=== PATIENT | female | born 1945 | race Caucasian/White ===

== ENCOUNTER 2017-04-03 12:50 | Inpatient (IN) | payer MEDICARE, OTHER ==
[~2017-04-03] VITALS: Ht 160 cm; Wt 171.8 kg
[~2017-04-03 12:50] MED LIST: ALLO300T11 PO; AMIT150T PO; ASPI-611 PO; CHOL2000 PO; CRAN1TAB3 PO; CYAN-19 PO; DET2T PO; DIO160T PO; GABA300T25 PO; IRON150C5 PO; LANTUS SQ; LEVO500T89 PO; LORA10TA7 PO; LYR75C PO; MELO-102 PO; METO25TA6 PO; OMEP-50; POTA10TA36 PO; SERT100T PO; TRAM50TA2 PO; [UNRECOGNIZED DRUG - CODE] PO
[2017-04-03] MEDS ORDERED: normal saline 1000ML IV soln IV ONE (12:55)
[2017-04-03 13:45] LABS: CLARITY,URINE SLIGHTLY CLOUDY (Clear); COLOR,URINE YELLOW (Yellow); GLUCOSE, URINE NEGATIVE (Neg); KETONES,URINE NEGATIVE (Neg); LEUKOCYTE ESTERASE ,URINE SMALL (Neg); NITRITES, URINE POSITIVE (Neg); OCCULT BLOOD,URINE SMALL (Neg); PROTEIN,URINE TRACE mg/dl (Neg); UROBILINOGEN,URINE 0.2 E.U/dL (0.2-1.0)
[2017-04-03 13:46] LABS: UA COLLECTION TYPE FOLEY CATH
[2017-04-03 13:52] LABS: ALANINE AMINOTRANSFERASE 20 U/L (12-78); ALBUMIN 3.2 G/DL (3.4-5.0); ALBUMIN/GLOBULIN RATIO 0.8 (1.1-1.5); ALKALINE PHOSPHATASE 98 IU/L (46-116); ANION GAP 10 (8-16); ASPARTATE AMINO TRANSFERASE 28 U/L (10-37); BILIRUBIN,TOTAL 0.5 MG/DL (0.1-1.0); BLOOD UREA NITROGEN 25 MG/DL (7-18); BUN/CREATININE RATIO 18.7 (6.6-38.0); CALCIUM 9.4 MG/DL (8.5-10.1); CHLORIDE 104 MMOL/L (99-107); CREATININE 1.34 MG/DL (0.40-0.90); GLUCOSE 182 MG/DL (70-104); SODIUM 143 MMOL/L (135-145); TOTAL CARBON DIOXIDE 29.5 MMOL/L (24-32); TOTAL PROTEIN 7.3 G/DL (6.4-8.2); eGFR 39 ML/MIN
[2017-04-03 13:55] LABS: BACTERIA,URINE 4+ /HPF (Neg); SQUAMOUS EPITHELIAL CELL,UR MANY /LPF (FEW); WBC CLUMPS,URINE FEW /HPF (NEGATIVE); WBC,URINE 50-100 /HPF (0-4)
[2017-04-03 13:56] LABS: AMORPHOUS URATES 2+
[2017-04-03] MEDS ORDERED: CefTRIAXone 2gm/NS 100ml IVPB 100 ML IV ONE (14:00)
[2017-04-03] MEDS ORDERED: levoFLOXACIN-Levaquin 500mg/D5 100 ML IV ONE (14:00)
[2017-04-03 14:22] LABS: CREATINE KINASE 94 U/L (26-192)
[2017-04-03] MEDS ORDERED: furosemide 10 MG/1 ML 10ml inj IV ONE (14:35)
[2017-04-03] MEDS ORDERED: DET2LAC PO (14:35)
[2017-04-03 14:36] LABS: BASOPHILS % (AUTO) 0.2 % (0-1); EOSINOPHILS # (AUTO) 0.3 X10'3 (0-0.9); EOSINOPHILS % (AUTO) 1.5 % (0-6); HEMATOCRIT 31.2 % (35.0-45.0); HEMOGLOBIN 10.1 g/dl (12.0-16.0); LYMPHOCYTES # (AUTO) 1.9 X10'3 (1.1-4.8); LYMPHOCYTES % (AUTO) 10.5 % (21-51); MEAN CORPUSCULAR HGB CONC 32.2 % (33.0-36.5); MEAN CORPUSCULAR VOLUME 80.6 FL (78-98); MEAN PLATELET VOLUME 7.5 FL (7.4-10.4); MONOCYTES # (AUTO) 1.1 X10'3 (0-0.9); MONOCYTES % (AUTO) 5.8 % (2-12); PLATELET COUNT 177 X10'3 (140-440); RED BLOOD COUNT 3.87 X10'6 (4.20-5.60); RED CELL DISTRIBUTION WIDTH 20.7 % (11.5-14.5); WHITE BLOOD COUNT 18.3 X10'3 (4.5-11.0)
[2017-04-03] MEDS ORDERED: ondansetron/PF 4mg/2ml inj IV PRN (14:55)
[2017-04-03] MEDS ORDERED: metoclopramide 5 mg/ml inj IV PRN (14:55)
[2017-04-03] MEDS ORDERED: magnesium hydroxide 30ml (MOM) UD suspension PO PRN (14:55)
[2017-04-03] MEDS ORDERED: mag hydrox/Alum hydrox/simeth 30ml oral suspension PO PRN (14:55)
[2017-04-03] MEDS ORDERED: bisacodyl 10mg suppository rectal RC PRN (14:55)
[2017-04-03] MEDS ORDERED: HYDROmorphone 1 mg/ml syringe IV PRN ×2 (14:55)
[2017-04-03] MEDS ORDERED: diphenhydrAMINE 50 mg/ml inj IV PRN (14:55)
[2017-04-03] MEDS ORDERED: diphenhydrAMINE 25mg capsule PO PRN (14:55)
[2017-04-03] MEDS: furosemide 10 MG/1 ML 10ml inj IV SCH (15:13)
[2017-04-03 15:24] LABS: MAGNESIUM 1.8 MG/DL (1.5-2.4)
[2017-04-03] MEDS ORDERED: dextrose ORAL solution 15 GM/59 ML bottle PO PRN ×2 (15:40)
[2017-04-03] MEDS ORDERED: dextrose 50%-water 50ml dispensing syringe IV PRN ×2 (15:40)
[2017-04-03] MEDS ORDERED: MESSAGE TO PHARMACY PO ONE (15:40)
[2017-04-03] MEDS ORDERED: glucagon, human recombinant 1mg kit SUBCUT PRN (15:40)
[2017-04-03] MEDS ORDERED: tetanus & diphtheria toxoid (Td) vaccine 0.5ml IMVAC ONE (16:45)
[2017-04-03 18:30] VITALS: BP 120/52
[2017-04-03] MEDS ORDERED: ibuprofen 200mg tablet PO ONE (20:00)
[2017-04-03] MEDS ORDERED: docusate sod 100mg capsule PO SCH (20:00)
[2017-04-03] MEDS: gabapentin 300mg capsule PO SCH (20:46)
[2017-04-03] MEDS: sertraline 50mg tablet PO SCH (20:47)
[2017-04-03] MEDS: amitryptiline 50mg tablet PO SCH (20:47)
[2017-04-03] MEDS: enoxaparin 30mg/0.3ml syringe SQ SCH (20:48)
[2017-04-03] MEDS: methylPREDNISolone sod succ 125mg/2ml vial IV SCH (20:48)
[2017-04-03] MEDS ORDERED: temazepam 15mg capsule PO PRN (21:00)
[2017-04-03] MEDS ORDERED: GABAPENTIN 1800 MG PO SCH (21:00)
[2017-04-03] MEDS: traMADol 50MG tablet PO SCH (21:30)
[2017-04-03 22:00] VITALS: BP 129/62
[2017-04-04 06:00] VITALS: BP 120/56
[2017-04-04 06:01] LABS: BASOPHILS % (AUTO) 0.1 % (0-1); EOSINOPHILS # (AUTO) 0.2 X10'3 (0-0.9); EOSINOPHILS % (AUTO) 1.8 % (0-6); HEMATOCRIT 29.5 % (35.0-45.0); HEMOGLOBIN 9.7 g/dl (12.0-16.0); LYMPHOCYTES % (AUTO) 12.1 % (21-51); MEAN CORPUSCULAR HEMOGLOBIN 26.2 PG (27.0-31.0); MEAN CORPUSCULAR HGB CONC 32.9 % (33.0-36.5); MEAN CORPUSCULAR VOLUME 79.5 FL (78-98); MEAN PLATELET VOLUME 7.9 FL (7.4-10.4); MONOCYTES # (AUTO) 0.1 X10'3 (0-0.9); MONOCYTES % (AUTO) 1.5 % (2-12); NEUTROPHILS # (AUTO) 7.2 X10'3 (1.8-7.7); NEUTROPHILS % (AUTO) 84.5 % (42-75); PLATELET COUNT 145 X10'3 (140-440); RED CELL DISTRIBUTION WIDTH 20.2 % (11.5-14.5); WHITE BLOOD COUNT 8.5 X10'3 (4.5-11.0)
[2017-04-04 06:16] LABS: ALANINE AMINOTRANSFERASE 24 U/L (12-78); ALBUMIN 2.8 G/DL (3.4-5.0); ALBUMIN/GLOBULIN RATIO 0.7 (1.1-1.5); ALKALINE PHOSPHATASE 77 IU/L (46-116); ANION GAP 9 (8-16); ASPARTATE AMINO TRANSFERASE 21 U/L (10-37); BILIRUBIN,TOTAL 0.3 MG/DL (0.1-1.0); BLOOD UREA NITROGEN 29 MG/DL (7-18); BUN/CREATININE RATIO 20.6 (6.6-38.0); CALCIUM 8.9 MG/DL (8.5-10.1); CHLORIDE 103 MMOL/L (99-107); CREATININE 1.41 MG/DL (0.40-0.90); GLUCOSE 301 MG/DL (70-104); POTASSIUM 4.2 MMOL/L (3.5-5.1); SODIUM 142 MMOL/L (135-145); TOTAL CARBON DIOXIDE 29.7 MMOL/L (24-32); TOTAL PROTEIN 6.6 G/DL (6.4-8.2); eGFR 37 ML/MIN
[2017-04-04] MEDS ORDERED: levoFLOXACIN-Levaquin 500mg/D5 100 ML IV SCH (08:00)
[2017-04-04] MEDS: methylPREDNISolone sod succ 125mg/2ml vial IV SCH ×2 (09:11→20:28)
[2017-04-04] MEDS: furosemide 10 MG/1 ML 10ml inj IV SCH (09:22)
[2017-04-04] MEDS: sertraline 50mg tablet PO SCH (09:26)
[2017-04-04] MEDS: tolterodine 2mg SR capsule (24hr) PO SCH (09:26)
[2017-04-04] MEDS: pantoprazole 40mg Tablet.DR PO SCH (09:27)
[2017-04-04] MEDS: gabapentin 300mg capsule PO SCH ×3 (09:27→20:28)
[2017-04-04] MEDS: allopurinol 300 MG tablet PO SCH (09:27)
[2017-04-04] MEDS: aspirin 81mg tablet.DR PO SCH (09:27)
[2017-04-04] MEDS: traMADol 50MG tablet PO SCH ×2 (09:27→20:28)
[2017-04-04] MEDS: docusate sod 100mg capsule PO SCH (09:28)
[2017-04-04] MEDS: enoxaparin 30mg/0.3ml syringe SQ SCH ×2 (09:36→20:29)
[2017-04-04] MEDS: insulin Lispro (HumaLOG) vial - multi-dose SQ SCH ×3 (09:46→18:57)
[2017-04-04 10:00] VITALS: BP 122/54
[2017-04-04] MEDS ORDERED: METO25TA6 PO (14:13)
[2017-04-04] MEDS ORDERED: LYR75C PO (14:13)
[2017-04-04] MEDS ORDERED: OMEP-50 (14:13)
[2017-04-04] MEDS: lactobacillus rhamnosus 10,000 MMU CELLS/CAPSULE PO SCH (17:40)
[2017-04-04 18:00] VITALS: BP 121/56
[2017-04-04] MEDS: amitryptiline 50mg tablet PO SCH (20:28)
[2017-04-04] MEDS: mineral oil/petrolatum, white cream 113gm jar TP SCH (20:28)
[2017-04-04 22:01] VITALS: BP 128/46
[2017-04-05 05:00] VITALS: BP 141/61
[2017-04-05 05:48] LABS: BASOPHILS % (AUTO) 0.2 % (0-1); EOSINOPHILS # (AUTO) 0.1 X10'3 (0-0.9); EOSINOPHILS % (AUTO) 1.6 % (0-6); HEMATOCRIT 29.6 % (35.0-45.0); HEMOGLOBIN 9.6 g/dl (12.0-16.0); LYMPHOCYTES # (AUTO) 0.9 X10'3 (1.1-4.8); LYMPHOCYTES % (AUTO) 11.3 % (21-51); MEAN CORPUSCULAR HEMOGLOBIN 26.1 PG (27.0-31.0); MEAN CORPUSCULAR HGB CONC 32.4 % (33.0-36.5); MEAN CORPUSCULAR VOLUME 80.5 FL (78-98); MEAN PLATELET VOLUME 8.1 FL (7.4-10.4); MONOCYTES # (AUTO) 0.2 X10'3 (0-0.9); MONOCYTES % (AUTO) 2.3 % (2-12); NEUTROPHILS % (AUTO) 84.6 % (42-75); PLATELET COUNT 167 X10'3 (140-440); RED BLOOD COUNT 3.67 X10'6 (4.20-5.60); RED CELL DISTRIBUTION WIDTH 20.5 % (11.5-14.5); WHITE BLOOD COUNT 8.3 X10'3 (4.5-11.0)
[2017-04-05 06:22] LABS: ALANINE AMINOTRANSFERASE 20 U/L (12-78); ALBUMIN 2.8 G/DL (3.4-5.0); ALBUMIN/GLOBULIN RATIO 0.7 (1.1-1.5); ALKALINE PHOSPHATASE 78 IU/L (46-116); ANION GAP 9 (8-16); ASPARTATE AMINO TRANSFERASE 15 U/L (10-37); BILIRUBIN,TOTAL 0.2 MG/DL (0.1-1.0); BLOOD UREA NITROGEN 35 MG/DL (7-18); BUN/CREATININE RATIO 22.6 (6.6-38.0); CALCIUM 8.9 MG/DL (8.5-10.1); CHLORIDE 101 MMOL/L (99-107); CREATININE 1.55 MG/DL (0.40-0.90); GLUCOSE 322 MG/DL (70-104); POTASSIUM 4.5 MMOL/L (3.5-5.1); SODIUM 141 MMOL/L (135-145); TOTAL CARBON DIOXIDE 31.2 MMOL/L (24-32); TOTAL PROTEIN 6.7 G/DL (6.4-8.2); eGFR 33 ML/MIN
[2017-04-05] MEDS: insulin Lispro (HumaLOG) vial - multi-dose SQ SCH ×4 (09:13→23:09)
[2017-04-05] MEDS: lactobacillus rhamnosus 10,000 MMU CELLS/CAPSULE PO SCH ×2 (09:15→17:15)
[2017-04-05] MEDS: pantoprazole 40mg Tablet.DR PO SCH (09:15)
[2017-04-05] MEDS: tolterodine 2mg SR capsule (24hr) PO SCH (09:16)
[2017-04-05] MEDS: gabapentin 300mg capsule PO SCH ×3 (09:16→20:51)
[2017-04-05] MEDS: aspirin 81mg tablet.DR PO SCH (09:16)
[2017-04-05] MEDS: traMADol 50MG tablet PO SCH ×2 (09:16→20:52)
[2017-04-05] MEDS: enoxaparin 30mg/0.3ml syringe SQ SCH ×2 (09:17→20:50)
[2017-04-05] MEDS: sertraline 50mg tablet PO SCH (09:17)
[2017-04-05] MEDS: mineral oil/petrolatum, white cream 113gm jar TP SCH ×2 (09:18→20:52)
[2017-04-05] MEDS: allopurinol 300 MG tablet PO SCH (09:20)
[2017-04-05] MEDS: docusate sod 100mg capsule PO SCH (09:25)
[2017-04-05 10:00] VITALS: BP 134/59
[2017-04-05] MEDS: furosemide 10 MG/1 ML 10ml inj IV SCH (11:05)
[2017-04-05] MEDS: methylPREDNISolone sod succ 125mg/2ml vial IV SCH ×2 (11:05→20:50)
[2017-04-05] MEDS: levoFLOXACIN 250mg tablet PO SCH (11:05)
[2017-04-05] MEDS: cefTRIAXone 1g/NS 100ml IVPB 100 ML IV SCH (11:05)
[2017-04-05] MEDS: amitryptiline 50mg tablet PO SCH (21:02)
[2017-04-05 22:00] VITALS: BP 140/67
[2017-04-06 05:00] VITALS: BP 148/65
[2017-04-06 06:00] LABS: BASOPHILS % (AUTO) 0.3 % (0-1); EOSINOPHILS # (AUTO) 0.1 X10'3 (0-0.9); EOSINOPHILS % (AUTO) 1.5 % (0-6); HEMATOCRIT 29.7 % (35.0-45.0); HEMOGLOBIN 9.7 g/dl (12.0-16.0); LYMPHOCYTES # (AUTO) 0.8 X10'3 (1.1-4.8); LYMPHOCYTES % (AUTO) 9.2 % (21-51); MEAN CORPUSCULAR HEMOGLOBIN 25.8 PG (27.0-31.0); MEAN CORPUSCULAR HGB CONC 32.5 % (33.0-36.5); MEAN CORPUSCULAR VOLUME 79.2 FL (78-98); MEAN PLATELET VOLUME 7.9 FL (7.4-10.4); MONOCYTES # (AUTO) 0.3 X10'3 (0-0.9); MONOCYTES % (AUTO) 2.9 % (2-12); NEUTROPHILS # (AUTO) 7.9 X10'3 (1.8-7.7); NEUTROPHILS % (AUTO) 86.1 % (42-75); PLATELET COUNT 160 X10'3 (140-440); RED BLOOD COUNT 3.75 X10'6 (4.20-5.60); RED CELL DISTRIBUTION WIDTH 20.1 % (11.5-14.5); WHITE BLOOD COUNT 9.2 X10'3 (4.5-11.0)
[2017-04-06 06:27] LABS: ALANINE AMINOTRANSFERASE 20 U/L (12-78); ALBUMIN 2.8 G/DL (3.4-5.0); ALBUMIN/GLOBULIN RATIO 0.7 (1.1-1.5); ALKALINE PHOSPHATASE 74 IU/L (46-116); ANION GAP 10 (8-16); ASPARTATE AMINO TRANSFERASE 15 U/L (10-37); BILIRUBIN,TOTAL 0.2 MG/DL (0.1-1.0); BLOOD UREA NITROGEN 42 MG/DL (7-18); BUN/CREATININE RATIO 26.9 (6.6-38.0); CALCIUM 9.1 MG/DL (8.5-10.1); CHLORIDE 100 MMOL/L (99-107); CREATININE 1.56 MG/DL (0.40-0.90); GLUCOSE 258 MG/DL (70-104); POTASSIUM 4.2 MMOL/L (3.5-5.1); SODIUM 141 MMOL/L (135-145); TOTAL CARBON DIOXIDE 31.5 MMOL/L (24-32); TOTAL PROTEIN 6.7 G/DL (6.4-8.2); eGFR 33 ML/MIN
[2017-04-06] MEDS: docusate sod 100mg capsule PO SCH (08:44)
[2017-04-06] MEDS: pantoprazole 40mg Tablet.DR PO SCH (08:44)
[2017-04-06] MEDS: allopurinol 300 MG tablet PO SCH (08:44)
[2017-04-06] MEDS: gabapentin 300mg capsule PO SCH (08:44)
[2017-04-06] MEDS: aspirin 81mg tablet.DR PO SCH (08:44)
[2017-04-06] MEDS: lactobacillus rhamnosus 10,000 MMU CELLS/CAPSULE PO SCH (08:44)
[2017-04-06] MEDS: sertraline 50mg tablet PO SCH (08:45)
[2017-04-06] MEDS: enoxaparin 30mg/0.3ml syringe SQ SCH (08:45)
[2017-04-06] MEDS: mineral oil/petrolatum, white cream 113gm jar TP SCH (08:45)
[2017-04-06] MEDS: tolterodine 2mg SR capsule (24hr) PO SCH (08:45)
[2017-04-06] MEDS: methylPREDNISolone sod succ 125mg/2ml vial IV SCH (08:46)
[2017-04-06] MEDS: traMADol 50MG tablet PO SCH (08:46)
[2017-04-06] MEDS: furosemide 10 MG/1 ML 10ml inj IV SCH (08:46)
[2017-04-06] MEDS: cefTRIAXone 1g/NS 100ml IVPB 100 ML IV SCH (08:46)
[2017-04-06] MEDS: insulin Lispro (HumaLOG) vial - multi-dose SQ SCH ×2 (08:52→14:26)
[2017-04-06] MEDS: levoFLOXACIN 250mg tablet PO SCH (11:14)
== END 2017-04-06 16:30 | DRG 871 ==
LOC: ER 12:50 → ED HOLD 14:55 → EDBEDREQ 15:32 → ORTHO 4S 16:40
PROVIDERS: ADMIT Family Medicine; ATTEND Internal Medicine
DX: A41.9 Sepsis, unspecified organism (principal); I50.33 Acute on chronic diastolic (congestive) heart failure; N17.9 Acute kidney failure, unspecified; L03.116 Cellulitis of left lower limb; J44.1 Chronic obstructive pulmonary disease with (acute) exacerbation; Z68.44 Body mass index [BMI] 60.0-69.9, adult; L03.311 Cellulitis of abdominal wall; N39.0 Urinary tract infection, site not specified; E66.01 Morbid (severe) obesity due to excess calories; E11.65 Type 2 diabetes mellitus with hyperglycemia; W18.30XA Fall on same level, unspecified, initial encounter; B96.20 Unspecified Escherichia coli [E. coli] as the cause of diseases classified elsewhere; R62.7 Adult failure to thrive; I11.0 Hypertensive heart disease with heart failure; I89.0 Lymphedema, not elsewhere classified; L30.9 Dermatitis, unspecified; L90.9 Atrophic disorder of skin, unspecified; M79.3 Panniculitis, unspecified; W55.03XA Scratched by cat, initial encounter; Z99.3 Dependence on wheelchair; Z90.710 Acquired absence of both cervix and uterus; Z88.5 Allergy status to narcotic agent; Z88.0 Allergy status to penicillin; Z88.8 Allergy status to other drugs, medicaments and biological substances; Z79.4 Long term (current) use of insulin; Z79.899 Other long term (current) drug therapy; Z79.82 Long term (current) use of aspirin; Y93.89 Activity, other specified; Y92.89 Other specified places as the place of occurrence of the external cause; Y99.8 Other external cause status; Z91.81 History of falling
CPT/HCPCS: 36415; 70450; 71045; 71250; 80053; 81001; 82550; 82948; 83036; 83605; 83735; 83880; 85025; 87040; 87070; 87077; 87088; 87186; 90715; 93005; 96365; 97116; 97161; 99285; A4315; A4353; A6212; A6213; J0696; J1650; J1940; J1956; J2930; J7030

== ENCOUNTER 2017-04-23 08:46 | Inpatient (IN) | payer MEDICARE, OTHER ==
[~2017-04-23] VITALS: Ht 160 cm; Wt 160.0 kg
[~2017-04-23 08:46] MED LIST changes: +DET2LAC PO; -DET2T PO; -IRON150C5 PO; -LEVO500T89 PO; -LORA10TA7 PO; -MELO-102 PO; -POTA10TA36 PO
[2017-04-23] MEDS ORDERED: normal saline 1000ML IV soln IVB ONE (09:05)
[2017-04-23] MEDS ORDERED: levoFLOXACIN-Levaquin 500mg/D5 100 ML IV ONE (09:10)
[2017-04-23] MEDS ORDERED: vancomycin/NS 1 GM ADD-VANTAGE 250 ML IV ONE (09:10)
[2017-04-23 09:57] LABS: BASOPHILS % (AUTO) 0.1 % (0-1); EOSINOPHILS # (AUTO) 0.1 X10'3 (0-0.9); EOSINOPHILS % (AUTO) 1.4 % (0-6); HEMATOCRIT 32.4 % (35.0-45.0); HEMOGLOBIN 10.6 g/dl (12.0-16.0); LYMPHOCYTES # (AUTO) 1.6 X10'3 (1.1-4.8); LYMPHOCYTES % (AUTO) 15.7 % (21-51); MEAN CORPUSCULAR HEMOGLOBIN 25.4 PG (27.0-31.0); MEAN CORPUSCULAR HGB CONC 32.6 % (33.0-36.5); MEAN CORPUSCULAR VOLUME 78.1 FL (78-98); MEAN PLATELET VOLUME 7.9 FL (7.4-10.4); MONOCYTES % (AUTO) 10.2 % (2-12); NEUTROPHILS # (AUTO) 7.2 X10'3 (1.8-7.7); NEUTROPHILS % (AUTO) 72.6 % (42-75); PLATELET COUNT 197 X10'3 (140-440); RED BLOOD COUNT 4.15 X10'6 (4.20-5.60); RED CELL DISTRIBUTION WIDTH 18.7 % (11.5-14.5); WHITE BLOOD COUNT 9.9 X10'3 (4.5-11.0)
[2017-04-23 10:12] LABS: INR 1.2 INR; PARTIAL THROMBOPLASTIN TIME 32 SECONDS (22-32); PROTHROMBIN TIME 12.5 SECONDS (9.0-12.0)
[2017-04-23 11:01] LABS: ALANINE AMINOTRANSFERASE 22 U/L (12-78); ALBUMIN 2.9 G/DL (3.4-5.0); ALBUMIN/GLOBULIN RATIO 0.7 (1.1-1.5); ALKALINE PHOSPHATASE 69 IU/L (46-116); ANION GAP 13 (8-16); ASPARTATE AMINO TRANSFERASE 21 U/L (10-37); BILIRUBIN,TOTAL 0.7 MG/DL (0.1-1.0); BLOOD UREA NITROGEN 38 MG/DL (7-18); BUN/CREATININE RATIO 12.8 (6.6-38.0); CALCIUM 8.6 MG/DL (8.5-10.1); CHLORIDE 99 MMOL/L (99-107); CREATININE 2.97 MG/DL (0.40-0.90); GLUCOSE 266 MG/DL (70-104); MAGNESIUM 1.4 MG/DL (1.5-2.4); POTASSIUM 5.2 MMOL/L (3.5-5.1); SODIUM 138 MMOL/L (135-145); TOTAL CARBON DIOXIDE 25.8 MMOL/L (24-32); TOTAL PROTEIN 7.2 G/DL (6.4-8.2); eGFR 16 ML/MIN
[2017-04-23] MEDS: vancomycin/NS 1 GM ADD-VANTAGE 250 ML IV SCH ×2 (11:19→15:18)
[2017-04-23 12:19] LABS: CLARITY,URINE CLOUDY (Clear); COLOR,URINE YELLOW (Yellow); GLUCOSE, URINE NEGATIVE (Neg); KETONES,URINE NEGATIVE (Neg); LEUKOCYTE ESTERASE ,URINE LARGE (Neg); NITRITES, URINE POSITIVE (Neg); OCCULT BLOOD,URINE MODERATE (Neg); PH,URINE 6.5 (4.8-8.0); PROTEIN,URINE 30 mg/dl (Neg); UROBILINOGEN,URINE 0.2 E.U/dL (0.2-1.0)
[2017-04-23 12:30] LABS: UA COLLECTION TYPE FOLEY CATH
[2017-04-23 12:34] LABS: BACTERIA,URINE 4+ /HPF (Neg); WBC,URINE 50-100 /HPF (0-4)
[2017-04-23 12:35] LABS: SQUAMOUS EPITHELIAL CELL,UR FEW /LPF (FEW); WBC CLUMPS,URINE MODERATE /HPF (NEGATIVE)
[2017-04-23] MEDS ORDERED: GUAI100L55 (13:40)
[2017-04-23] MEDS ORDERED: OXYB15TA PO (13:40)
[2017-04-23] MEDS ORDERED: FURO-150 PO (13:40)
[2017-04-23] MEDS ORDERED: INSU100I31 (13:40)
[2017-04-23] MEDS ORDERED: INSU100C10 SQ (13:40)
[2017-04-23] MEDS ORDERED: TRAM50TA2 PO (13:40)
[2017-04-23] MEDS ORDERED: FAMO-128 PO (13:40)
[2017-04-23] MEDS ORDERED: NYSPWD TP (13:40)
[2017-04-23] MEDS ORDERED: LACTC PO (13:40)
[2017-04-23] MEDS ORDERED: POTA10TA10 PO (13:40)
[2017-04-23] MEDS ORDERED: FLUC150T PO (13:40)
[2017-04-23] MEDS ORDERED: TIZA4CAP PO (13:40)
[2017-04-23] MEDS ORDERED: MULT-1085 PO (13:40)
[2017-04-23] MEDS ORDERED: LEVO250T2 PO (13:40)
[2017-04-23] MEDS ORDERED: ATR0.5NEB NEB (13:40)
[2017-04-23] MEDS ORDERED: CEFT1VIA IM (13:40)
[2017-04-23] MEDS ORDERED: GABA600T2 PO (13:40)
[2017-04-23] MEDS ORDERED: GUAI600T45 PO (13:40)
[2017-04-23] MEDS ORDERED: mag hydrox/Alum hydrox/simeth 30ml oral suspension PO PRN (13:50)
[2017-04-23] MEDS ORDERED: magnesium hydroxide 30ml (MOM) UD suspension PO PRN (13:50)
[2017-04-23] MEDS ORDERED: ondansetron/PF 4mg/2ml inj IV PRN (13:50)
[2017-04-23] MEDS: normal saline 1000ml 1,000 ML IV SCH ×3 (15:18→23:34)
[2017-04-23] MEDS: potassium chloride 10mEq ER tablet PO SCH (16:00)
[2017-04-23] MEDS ORDERED: lactobacillus rhamnosus 10,000 MMU CELLS/CAPSULE PO SCH (20:00)
[2017-04-23] MEDS: oxybutynin 5mg tablet PO SCH (20:32)
[2017-04-23] MEDS: pregabalin 75mg capsule PO SCH (20:32)
[2017-04-23] MEDS: guaiFENesin ER 600mg tablet PO SCH (20:32)
[2017-04-23] MEDS: lactobacillus rhamnosus 10,000 MMU CELLS/CAPSULE PO SCH (20:32)
[2017-04-23] MEDS: famotidine 20mg tablet PO SCH (20:32)
[2017-04-23] MEDS: heparin, porcine 5000 units/ml vial SQ SCH (20:33)
[2017-04-23] MEDS ORDERED: amitryptiline 50mg tablet PO SCH (21:00)
[2017-04-23] MEDS ORDERED: traMADol 50MG tablet PO STA (23:12)
[2017-04-24 07:11] VITALS: BP 128/50
[2017-04-24] MEDS ORDERED: OXYBUTYNIN CHLORIDE 5 MG PO SCH (08:00)
[2017-04-24] MEDS ORDERED: [UNRECOGNIZED DRUG - MIXTURE] PO SCH (08:00)
[2017-04-24] MEDS: potassium chloride 10mEq ER tablet PO SCH ×4 (08:00→23:10)
[2017-04-24] MEDS ORDERED: levoFLOXACIN-Levaquin 500mg/D5 100 ML IV SCH (08:00)
[2017-04-24] MEDS: lactobacillus rhamnosus 10,000 MMU CELLS/CAPSULE PO SCH ×2 (08:07→20:29)
[2017-04-24] MEDS: cyanocobalamin 500mcg tablet PO SCH (08:07)
[2017-04-24] MEDS: docusate sod 100mg capsule PO SCH (08:08)
[2017-04-24] MEDS: oxybutynin 5mg tablet PO SCH ×2 (08:08→20:29)
[2017-04-24] MEDS: allopurinol 300 MG tablet PO SCH (08:08)
[2017-04-24] MEDS: guaiFENesin ER 600mg tablet PO SCH ×2 (08:08→20:22)
[2017-04-24] MEDS: famotidine 20mg tablet PO SCH ×2 (08:11→20:27)
[2017-04-24] MEDS: traMADol 50MG tablet PO SCH ×2 (08:11→20:26)
[2017-04-24] MEDS: pregabalin 75mg capsule PO SCH ×2 (08:11→20:28)
[2017-04-24] MEDS: aspirin 81mg tab.chew PO SCH (08:12)
[2017-04-24] MEDS: heparin, porcine 5000 units/ml vial SQ SCH ×2 (08:12→21:18)
[2017-04-24] MEDS: vitamin D (cholecalciferol) 1,000 unit tablet PO SCH (08:13)
[2017-04-24] MEDS: sertraline 50mg tablet PO SCH (08:18)
[2017-04-24] MEDS ORDERED: potassium Cl 40MEQ/NS 500ml 500 ML IV PRN ×2 (08:25)
[2017-04-24] MEDS: K and/or MAG REPLACEMENT MC SCH (08:25)
[2017-04-24] MEDS ORDERED: magnesium 4gm in 100ml NS 100 ML IV PRN (08:25)
[2017-04-24] MEDS ORDERED: potassium Cl 20 mEq SR tablet PO PRN ×2 (08:25)
[2017-04-24] MEDS ORDERED: magnesium 2GM in 50ml NS 50 ML IV PRN (08:25)
[2017-04-24 08:45] LABS: BASOPHILS % (AUTO) 0.3 % (0-1); EOSINOPHILS % (AUTO) 0.7 % (0-6); HEMATOCRIT 29.7 % (35.0-45.0); HEMOGLOBIN 9.8 g/dl (12.0-16.0); LYMPHOCYTES # (AUTO) 1.7 X10'3 (1.1-4.8); LYMPHOCYTES % (AUTO) 25.6 % (21-51); MEAN CORPUSCULAR HEMOGLOBIN 25.9 PG (27.0-31.0); MEAN CORPUSCULAR HGB CONC 33.1 % (33.0-36.5); MEAN CORPUSCULAR VOLUME 78.2 FL (78-98); MEAN PLATELET VOLUME 8.6 FL (7.4-10.4); MONOCYTES # (AUTO) 0.8 X10'3 (0-0.9); MONOCYTES % (AUTO) 12.4 % (2-12); NEUTROPHILS # (AUTO) 4.1 X10'3 (1.8-7.7); PLATELET COUNT 153 X10'3 (140-440); RED BLOOD COUNT 3.79 X10'6 (4.20-5.60); RED CELL DISTRIBUTION WIDTH 18.6 % (11.5-14.5); WHITE BLOOD COUNT 6.7 X10'3 (4.5-11.0)
[2017-04-24 08:54] LABS: ALBUMIN 2.6 G/DL (3.4-5.0); ANION GAP 10 (8-16); BLOOD UREA NITROGEN 35 MG/DL (7-18); BUN/CREATININE RATIO 16.8 (6.6-38.0); CALCIUM 7.7 MG/DL (8.5-10.1); CHLORIDE 103 MMOL/L (99-107); CREATININE 2.08 MG/DL (0.40-0.90); GLUCOSE 158 MG/DL (70-104); POTASSIUM 4.4 MMOL/L (3.5-5.1); SODIUM 139 MMOL/L (135-145); eGFR 24 ML/MIN
[2017-04-24] MEDS: fluconazole 150mg tablet PO SCH (09:30)
[2017-04-24] MEDS: normal saline 1000ml 1,000 ML IV SCH ×2 (09:40→16:26)
[2017-04-24 10:05] LABS: MAGNESIUM 1.3 MG/DL (1.5-2.4)
[2017-04-24 11:00] VITALS: BP 103/56
[2017-04-24] MEDS ORDERED: dextrose 50%-water 50ml dispensing syringe IV PRN ×2 (12:05)
[2017-04-24] MEDS ORDERED: dextrose ORAL solution 15 GM/59 ML bottle PO PRN ×2 (12:05)
[2017-04-24] MEDS ORDERED: MESSAGE TO PHARMACY PO ONE (12:05)
[2017-04-24] MEDS ORDERED: glucagon, human recombinant 1mg kit SUBCUT PRN (12:05)
[2017-04-24 15:00] VITALS: BP_SYST 103; BP_SYST 105; BP_DIAS 52; BP_DIAS 83
[2017-04-24 19:00] VITALS: BP 108/50
[2017-04-24] MEDS: magnesium Cl slow-release 64mg tablet PO PRN ×2 (20:28→23:10)
[2017-04-24] MEDS: insulin glargine (Lantus) pen - multi-dose SQ SCH (21:00)
[2017-04-24 23:00] VITALS: BP 126/45
[2017-04-25 03:00] VITALS: BP 125/43
[2017-04-25 06:00] VITALS: BP 116/53
[2017-04-25 06:13] LABS: BASOPHILS % (AUTO) 0.1 % (0-1); EOSINOPHILS % (AUTO) 0.7 % (0-6); HEMATOCRIT 30.4 % (35.0-45.0); HEMOGLOBIN 9.9 g/dl (12.0-16.0); LYMPHOCYTES # (AUTO) 1.6 X10'3 (1.1-4.8); LYMPHOCYTES % (AUTO) 30.4 % (21-51); MEAN CORPUSCULAR HEMOGLOBIN 25.6 PG (27.0-31.0); MEAN CORPUSCULAR HGB CONC 32.5 % (33.0-36.5); MEAN CORPUSCULAR VOLUME 78.8 FL (78-98); MEAN PLATELET VOLUME 8.4 FL (7.4-10.4); MONOCYTES # (AUTO) 0.7 X10'3 (0-0.9); MONOCYTES % (AUTO) 13.5 % (2-12); NEUTROPHILS # (AUTO) 2.8 X10'3 (1.8-7.7); NEUTROPHILS % (AUTO) 55.3 % (42-75); PLATELET COUNT 156 X10'3 (140-440); RED BLOOD COUNT 3.85 X10'6 (4.20-5.60); RED CELL DISTRIBUTION WIDTH 18.5 % (11.5-14.5); WHITE BLOOD COUNT 5.1 X10'3 (4.5-11.0)
[2017-04-25 06:21] LABS: ALBUMIN 2.5 G/DL (3.4-5.0); ANION GAP 9 (8-16); BLOOD UREA NITROGEN 28 MG/DL (7-18); BUN/CREATININE RATIO 17.8 (6.6-38.0); CALCIUM 8.4 MG/DL (8.5-10.1); CHLORIDE 104 MMOL/L (99-107); CREATININE 1.57 MG/DL (0.40-0.90); GLUCOSE 161 MG/DL (70-104); MAGNESIUM 1.4 MG/DL (1.5-2.4); POTASSIUM 4.4 MMOL/L (3.5-5.1); SODIUM 140 MMOL/L (135-145); TOTAL CARBON DIOXIDE 26.7 MMOL/L (24-32); eGFR 33 ML/MIN
[2017-04-25] MEDS: potassium chloride 10mEq ER tablet PO SCH ×2 (08:00→15:20)
[2017-04-25] MEDS: docusate sod 100mg capsule PO SCH (08:10)
[2017-04-25] MEDS: magnesium Cl slow-release 64mg tablet PO PRN ×2 (08:10→22:01)
[2017-04-25] MEDS: lactobacillus rhamnosus 10,000 MMU CELLS/CAPSULE PO SCH ×2 (08:10→19:27)
[2017-04-25] MEDS: cyanocobalamin 500mcg tablet PO SCH (08:10)
[2017-04-25] MEDS: allopurinol 300 MG tablet PO SCH (08:11)
[2017-04-25] MEDS: vitamin D (cholecalciferol) 1,000 unit tablet PO SCH (08:11)
[2017-04-25] MEDS: guaiFENesin ER 600mg tablet PO SCH ×2 (08:11→19:29)
[2017-04-25] MEDS: sertraline 50mg tablet PO SCH (08:12)
[2017-04-25] MEDS: aspirin 81mg tab.chew PO SCH (08:12)
[2017-04-25] MEDS: traMADol 50MG tablet PO SCH ×2 (08:12→19:30)
[2017-04-25] MEDS: pregabalin 75mg capsule PO SCH ×2 (08:12→19:30)
[2017-04-25] MEDS: famotidine 20mg tablet PO SCH ×2 (08:12→19:30)
[2017-04-25] MEDS: oxybutynin 5mg tablet PO SCH ×2 (08:12→19:28)
[2017-04-25] MEDS: fluconazole 150mg tablet PO SCH (08:13)
[2017-04-25] MEDS: K and/or MAG REPLACEMENT MC SCH (08:13)
[2017-04-25] MEDS: heparin, porcine 5000 units/ml vial SQ SCH ×2 (08:13→19:30)
[2017-04-25] MEDS: levoFLOXACIN-Levaquin 250mg/D5 50 ML IV SCH (10:05)
[2017-04-25 11:00] VITALS: BP 98/47
[2017-04-25] MEDS: normal saline 1000ml 1,000 ML IV SCH (14:59)
[2017-04-25 15:00] VITALS: BP 104/45
[2017-04-25 18:40] VITALS: BP 108/59
[2017-04-25] MEDS: insulin glargine (Lantus) pen - multi-dose SQ SCH (21:00)
[2017-04-25 22:50] VITALS: BP 107/64
[2017-04-26] MEDS: potassium chloride 10mEq ER tablet PO SCH ×3 (00:01→16:37)
[2017-04-26 02:30] VITALS: BP 111/46
[2017-04-26] MEDS: normal saline 1000ml 1,000 ML IV SCH (03:37)
[2017-04-26 05:23] LABS: BASOPHILS % (AUTO) 0.1 % (0-1); EOSINOPHILS % (AUTO) 0.6 % (0-6); HEMATOCRIT 31.3 % (35.0-45.0); HEMOGLOBIN 10.2 g/dl (12.0-16.0); LYMPHOCYTES # (AUTO) 1.4 X10'3 (1.1-4.8); LYMPHOCYTES % (AUTO) 32.4 % (21-51); MEAN CORPUSCULAR HEMOGLOBIN 25.5 PG (27.0-31.0); MEAN CORPUSCULAR HGB CONC 32.5 % (33.0-36.5); MEAN CORPUSCULAR VOLUME 78.5 FL (78-98); MEAN PLATELET VOLUME 8.4 FL (7.4-10.4); MONOCYTES # (AUTO) 0.5 X10'3 (0-0.9); MONOCYTES % (AUTO) 11.9 % (2-12); NEUTROPHILS # (AUTO) 2.4 X10'3 (1.8-7.7); PLATELET COUNT 162 X10'3 (140-440); RED BLOOD COUNT 3.99 X10'6 (4.20-5.60); RED CELL DISTRIBUTION WIDTH 18.3 % (11.5-14.5); WHITE BLOOD COUNT 4.4 X10'3 (4.5-11.0)
[2017-04-26 05:53] LABS: ALBUMIN 2.6 G/DL (3.4-5.0); ANION GAP 10 (8-16); BLOOD UREA NITROGEN 21 MG/DL (7-18); BUN/CREATININE RATIO 16.4 (6.6-38.0); CALCIUM 8.9 MG/DL (8.5-10.1); CHLORIDE 106 MMOL/L (99-107); CREATININE 1.28 MG/DL (0.40-0.90); GLUCOSE 153 MG/DL (70-104); MAGNESIUM 1.6 MG/DL (1.5-2.4); POTASSIUM 4.6 MMOL/L (3.5-5.1); SODIUM 142 MMOL/L (135-145); eGFR 41 ML/MIN
[2017-04-26 06:00] VITALS: BP 131/56
[2017-04-26] MEDS: guaiFENesin ER 600mg tablet PO SCH ×3 (08:00→20:57)
[2017-04-26] MEDS: heparin, porcine 5000 units/ml vial SQ SCH ×2 (08:00→20:57)
[2017-04-26] MEDS: K and/or MAG REPLACEMENT MC SCH (08:00)
[2017-04-26] MEDS: vitamin D (cholecalciferol) 1,000 unit tablet PO SCH (08:33)
[2017-04-26] MEDS: fluconazole 150mg tablet PO SCH (08:33)
[2017-04-26] MEDS: traMADol 50MG tablet PO SCH (08:34)
[2017-04-26] MEDS: docusate sod 100mg capsule PO SCH (08:34)
[2017-04-26] MEDS: aspirin 81mg tab.chew PO SCH (08:34)
[2017-04-26] MEDS: levoFLOXACIN-Levaquin 250mg/D5 50 ML IV SCH (08:34)
[2017-04-26] MEDS: cyanocobalamin 500mcg tablet PO SCH (08:35)
[2017-04-26] MEDS: famotidine 20mg tablet PO SCH ×2 (08:35→20:57)
[2017-04-26] MEDS: oxybutynin 5mg tablet PO SCH ×2 (08:35→20:57)
[2017-04-26] MEDS: lactobacillus rhamnosus 10,000 MMU CELLS/CAPSULE PO SCH ×2 (08:35→20:56)
[2017-04-26] MEDS: sertraline 50mg tablet PO SCH (08:35)
[2017-04-26] MEDS: allopurinol 300 MG tablet PO SCH (08:36)
[2017-04-26] MEDS: pregabalin 75mg capsule PO SCH ×2 (08:36→20:56)
[2017-04-26 11:00] VITALS: BP 116/54
[2017-04-26 11:20] LABS: CLARITY,URINE SLIGHTLY CLOUDY (Clear); COLOR,URINE YELLOW (Yellow); GLUCOSE, URINE NEGATIVE (Neg); KETONES,URINE TRACE mg/dl (Neg); LEUKOCYTE ESTERASE ,URINE SMALL (Neg); NITRITES, URINE NEGATIVE (Neg); OCCULT BLOOD,URINE SMALL (Neg); PROTEIN,URINE NEGATIVE (Neg); UROBILINOGEN,URINE 0.2 E.U/dL (0.2-1.0)
[2017-04-26 11:27] LABS: UA COLLECTION TYPE NON-SPECIFIED
[2017-04-26 11:33] LABS: SQUAMOUS EPITHELIAL CELL,UR MODERATE /LPF (FEW)
[2017-04-26 11:34] LABS: HYALINE CASTS 0-3 /LPF (NEGATIVE); MUCUS STRANDS FEW /LPF (Neg); WBC CLUMPS,URINE MODERATE /HPF (NEGATIVE)
[2017-04-26 11:35] LABS: BACTERIA,URINE 1+ /HPF (Neg); COARSE GRANULAR CAST 0-3 /LPF (NEGATIVE); WBC,URINE 20-30 /HPF (0-4)
[2017-04-26 15:00] VITALS: BP 136/53
[2017-04-26 18:00] VITALS: BP 134/54
[2017-04-26] MEDS: meropenem inj 1 GM in normal saline 100ml IV soln 100 ML IV SCH (20:57)
[2017-04-26] MEDS: insulin glargine (Lantus) pen - multi-dose SQ SCH (21:00)
[2017-04-26] MEDS ORDERED: VANCOMYCIN LEVEL IV NR (21:30)
[2017-04-26 22:00] VITALS: BP 136/68
[2017-04-27] VITALS (7 sets, daily range): BP systolic 104–156; BP diastolic 55–88
[2017-04-27] MEDS ORDERED: piperacillin/tazo 3.375gm/50ml 50 ML IV SCH
[2017-04-27] MEDS: meropenem inj 1 GM in normal saline 100ml IV soln 100 ML IV SCH ×3 (05:04→20:39)
[2017-04-27 06:34] LABS: BASOPHILS % (AUTO) 0.1 % (0-1); EOSINOPHILS % (AUTO) 0.4 % (0-6); HEMATOCRIT 33.2 % (35.0-45.0); HEMOGLOBIN 10.9 g/dl (12.0-16.0); LYMPHOCYTES # (AUTO) 1.2 X10'3 (1.1-4.8); LYMPHOCYTES % (AUTO) 32.2 % (21-51); MEAN CORPUSCULAR HEMOGLOBIN 25.9 PG (27.0-31.0); MEAN CORPUSCULAR HGB CONC 32.8 % (33.0-36.5); MEAN CORPUSCULAR VOLUME 79.1 FL (78-98); MEAN PLATELET VOLUME 8.1 FL (7.4-10.4); MONOCYTES # (AUTO) 0.4 X10'3 (0-0.9); MONOCYTES % (AUTO) 9.9 % (2-12); NEUTROPHILS # (AUTO) 2.2 X10'3 (1.8-7.7); NEUTROPHILS % (AUTO) 57.4 % (42-75); PLATELET COUNT 140 X10'3 (140-440); RED CELL DISTRIBUTION WIDTH 18.2 % (11.5-14.5); WHITE BLOOD COUNT 3.9 X10'3 (4.5-11.0)
[2017-04-27 06:50] LABS: ALBUMIN 2.5 G/DL (3.4-5.0); ANION GAP 7 (8-16); BLOOD UREA NITROGEN 15 MG/DL (7-18); BUN/CREATININE RATIO 12.7 (6.6-38.0); CHLORIDE 107 MMOL/L (99-107); CREATININE 1.18 MG/DL (0.40-0.90); GLUCOSE 163 MG/DL (70-104); MAGNESIUM 1.6 MG/DL (1.5-2.4); POTASSIUM 4.5 MMOL/L (3.5-5.1); SODIUM 142 MMOL/L (135-145); TOTAL CARBON DIOXIDE 28.3 MMOL/L (24-32); eGFR 45 ML/MIN
[2017-04-27] MEDS: K and/or MAG REPLACEMENT MC SCH (08:00)
[2017-04-27] MEDS: cyanocobalamin 500mcg tablet PO SCH (08:35)
[2017-04-27] MEDS: sertraline 50mg tablet PO SCH (08:35)
[2017-04-27] MEDS: guaiFENesin ER 600mg tablet PO SCH ×2 (08:36→20:40)
[2017-04-27] MEDS: vitamin D (cholecalciferol) 1,000 unit tablet PO SCH (08:36)
[2017-04-27] MEDS: allopurinol 300 MG tablet PO SCH (08:36)
[2017-04-27] MEDS: docusate sod 100mg capsule PO SCH (08:36)
[2017-04-27] MEDS: famotidine 20mg tablet PO SCH ×2 (08:37→20:40)
[2017-04-27] MEDS: potassium chloride 10mEq ER tablet PO SCH ×3 (08:37→16:29)
[2017-04-27] MEDS: oxybutynin 5mg tablet PO SCH ×2 (08:37→20:40)
[2017-04-27] MEDS: lactobacillus rhamnosus 10,000 MMU CELLS/CAPSULE PO SCH ×2 (08:37→20:40)
[2017-04-27] MEDS: pregabalin 75mg capsule PO SCH ×2 (08:37→20:41)
[2017-04-27] MEDS: aspirin 81mg tab.chew PO SCH (08:37)
[2017-04-27] MEDS: heparin, porcine 5000 units/ml vial SQ SCH ×2 (08:38→20:39)
[2017-04-27] MEDS: fluconazole 150mg tablet PO SCH (08:38)
[2017-04-27] MEDS ORDERED: VANCOMYCIN LEVEL IV ONE (13:30)
[2017-04-27] MEDS: insulin Lispro (HumaLOG) vial - multi-dose SQ SCH ×2 (13:52→19:35)
[2017-04-27] MEDS ORDERED: ipratropium/albuterol 3ml nebule NEB PRN (15:25)
[2017-04-27] MEDS: traMADol 50MG tablet PO PRN (20:40)
[2017-04-27] MEDS: insulin glargine (Lantus) pen - multi-dose SQ SCH (22:32)
[2017-04-28] MEDS: potassium chloride 10mEq ER tablet PO SCH ×4 (00:20→23:18)
[2017-04-28 02:00] VITALS: BP 155/57
[2017-04-28] MEDS: meropenem inj 1 GM in normal saline 100ml IV soln 100 ML IV SCH ×3 (04:37→19:19)
[2017-04-28 06:00] VITALS: BP 154/82
[2017-04-28 06:29] LABS: BASOPHILS % (AUTO) 0.2 % (0-1); EOSINOPHILS % (AUTO) 0 % (0-6); HEMATOCRIT 32.2 % (35.0-45.0); HEMOGLOBIN 10.6 g/dl (12.0-16.0); LYMPHOCYTES # (AUTO) 1.2 X10'3 (1.1-4.8); LYMPHOCYTES % (AUTO) 25.6 % (21-51); MEAN CORPUSCULAR HEMOGLOBIN 25.6 PG (27.0-31.0); MEAN CORPUSCULAR HGB CONC 32.9 % (33.0-36.5); MEAN CORPUSCULAR VOLUME 77.9 FL (78-98); MEAN PLATELET VOLUME 8.1 FL (7.4-10.4); MONOCYTES # (AUTO) 0.3 X10'3 (0-0.9); MONOCYTES % (AUTO) 6.5 % (2-12); NEUTROPHILS # (AUTO) 3.2 X10'3 (1.8-7.7); NEUTROPHILS % (AUTO) 67.7 % (42-75); PLATELET COUNT 140 X10'3 (140-440); RED BLOOD COUNT 4.12 X10'6 (4.20-5.60); RED CELL DISTRIBUTION WIDTH 18.3 % (11.5-14.5); WHITE BLOOD COUNT 4.8 X10'3 (4.5-11.0)
[2017-04-28 06:40] LABS: ALBUMIN 2.5 G/DL (3.4-5.0); ANION GAP 7 (8-16); BLOOD UREA NITROGEN 12 MG/DL (7-18); BUN/CREATININE RATIO 10.8 (6.6-38.0); CALCIUM 9.1 MG/DL (8.5-10.1); CHLORIDE 107 MMOL/L (99-107); CREATININE 1.11 MG/DL (0.40-0.90); GLUCOSE 152 MG/DL (70-104); MAGNESIUM 1.5 MG/DL (1.5-2.4); POTASSIUM 4.5 MMOL/L (3.5-5.1); SODIUM 143 MMOL/L (135-145); TOTAL CARBON DIOXIDE 29.2 MMOL/L (24-32); eGFR 49 ML/MIN
[2017-04-28] MEDS: K and/or MAG REPLACEMENT MC SCH (08:00)
[2017-04-28] MEDS: vitamin D (cholecalciferol) 1,000 unit tablet PO SCH (08:50)
[2017-04-28] MEDS: sertraline 50mg tablet PO SCH (08:51)
[2017-04-28] MEDS: guaiFENesin ER 600mg tablet PO SCH ×2 (08:51→19:18)
[2017-04-28] MEDS: famotidine 20mg tablet PO SCH ×2 (08:51→19:18)
[2017-04-28] MEDS: allopurinol 300 MG tablet PO SCH (08:51)
[2017-04-28] MEDS: lactobacillus rhamnosus 10,000 MMU CELLS/CAPSULE PO SCH ×2 (08:51→19:18)
[2017-04-28] MEDS: oxybutynin 5mg tablet PO SCH ×2 (08:51→19:18)
[2017-04-28] MEDS: aspirin 81mg tab.chew PO SCH (08:51)
[2017-04-28] MEDS: pregabalin 75mg capsule PO SCH ×2 (08:51→19:18)
[2017-04-28] MEDS: docusate sod 100mg capsule PO SCH (08:51)
[2017-04-28] MEDS: fluconazole 150mg tablet PO SCH (08:52)
[2017-04-28] MEDS: cyanocobalamin 500mcg tablet PO SCH (08:52)
[2017-04-28] MEDS: heparin, porcine 5000 units/ml vial SQ SCH ×2 (08:55→19:18)
[2017-04-28] MEDS: insulin Lispro (HumaLOG) vial - multi-dose SQ SCH ×3 (09:49→19:10)
[2017-04-28] MEDS: traMADol 50MG tablet PO PRN (09:56)
[2017-04-28 11:00] VITALS: BP 158/77
[2017-04-28 18:00] VITALS: BP 146/60
[2017-04-28] MEDS: LACTOSE-FREE FOOD 237ML (BOOST) PO SCH (18:00)
[2017-04-28] MEDS: insulin glargine (Lantus) pen - multi-dose SQ SCH (20:49)
[2017-04-28 22:00] VITALS: BP 141/69
[2017-04-29 02:00] VITALS: BP 154/77
[2017-04-29] MEDS: meropenem inj 1 GM in normal saline 100ml IV soln 100 ML IV SCH ×3 (03:33→20:19)
[2017-04-29 06:00] VITALS: BP 117/72
[2017-04-29] MEDS: heparin, porcine 5000 units/ml vial SQ SCH ×2 (07:19→20:21)
[2017-04-29] MEDS: aspirin 81mg tab.chew PO SCH (07:20)
[2017-04-29] MEDS: famotidine 20mg tablet PO SCH ×2 (07:20→20:20)
[2017-04-29] MEDS: sertraline 50mg tablet PO SCH (07:20)
[2017-04-29] MEDS: allopurinol 300 MG tablet PO SCH (07:20)
[2017-04-29] MEDS: fluconazole 150mg tablet PO SCH (07:20)
[2017-04-29] MEDS: potassium chloride 10mEq ER tablet PO SCH ×2 (07:20→15:42)
[2017-04-29] MEDS: cyanocobalamin 500mcg tablet PO SCH (07:20)
[2017-04-29] MEDS: oxybutynin 5mg tablet PO SCH ×2 (07:20→20:20)
[2017-04-29] MEDS: docusate sod 100mg capsule PO SCH (07:20)
[2017-04-29] MEDS: lactobacillus rhamnosus 10,000 MMU CELLS/CAPSULE PO SCH ×2 (07:20→20:19)
[2017-04-29] MEDS: pregabalin 75mg capsule PO SCH ×2 (07:20→20:20)
[2017-04-29] MEDS: guaiFENesin ER 600mg tablet PO SCH ×2 (07:21→20:20)
[2017-04-29] MEDS: vitamin D (cholecalciferol) 1,000 unit tablet PO SCH (07:21)
[2017-04-29] MEDS: K and/or MAG REPLACEMENT MC SCH (08:00)
[2017-04-29] MEDS: LACTOSE-FREE FOOD 237ML (BOOST) PO SCH ×3 (08:31→18:00)
[2017-04-29] MEDS: insulin Lispro (HumaLOG) vial - multi-dose SQ SCH ×2 (08:46→14:13)
[2017-04-29 15:00] VITALS: BP 137/67
[2017-04-29 15:44] VITALS: BP 149/62
[2017-04-29 18:00] VITALS: BP 161/79
[2017-04-29] MEDS: insulin glargine (Lantus) pen - multi-dose SQ SCH (21:37)
[2017-04-29 22:00] VITALS: BP 179/71
[2017-04-30 02:00] VITALS: BP 135/65
[2017-04-30] MEDS: potassium chloride 10mEq ER tablet PO SCH ×3 (02:27→07:28)
[2017-04-30] MEDS: meropenem inj 1 GM in normal saline 100ml IV soln 100 ML IV SCH ×2 (04:31→12:49)
[2017-04-30 06:38] VITALS: BP 170/95
[2017-04-30] MEDS: oxybutynin 5mg tablet PO SCH (07:28)
[2017-04-30] MEDS: cyanocobalamin 500mcg tablet PO SCH (07:28)
[2017-04-30] MEDS: docusate sod 100mg capsule PO SCH (07:28)
[2017-04-30] MEDS: guaiFENesin ER 600mg tablet PO SCH (07:28)
[2017-04-30] MEDS: famotidine 20mg tablet PO SCH (07:28)
[2017-04-30] MEDS: pregabalin 75mg capsule PO SCH (07:29)
[2017-04-30] MEDS: vitamin D (cholecalciferol) 1,000 unit tablet PO SCH (07:29)
[2017-04-30] MEDS: allopurinol 300 MG tablet PO SCH (07:29)
[2017-04-30] MEDS: lactobacillus rhamnosus 10,000 MMU CELLS/CAPSULE PO SCH (07:29)
[2017-04-30] MEDS: aspirin 81mg tab.chew PO SCH (07:29)
[2017-04-30] MEDS ORDERED: magnesium Cl slow-release 64mg tablet PO PRN (07:30)
[2017-04-30] MEDS ORDERED: potassium Cl 40MEQ/NS 500ml 500 ML IV PRN ×2 (07:30)
[2017-04-30] MEDS: heparin, porcine 5000 units/ml vial SQ SCH (07:30)
[2017-04-30] MEDS ORDERED: magnesium 4gm in 100ml NS 100 ML IV PRN (07:30)
[2017-04-30] MEDS ORDERED: potassium Cl 20 mEq SR tablet PO PRN ×2 (07:30)
[2017-04-30] MEDS: sertraline 50mg tablet PO SCH (07:30)
[2017-04-30] MEDS ORDERED: magnesium 2GM in 50ml NS 50 ML IV PRN (07:30)
[2017-04-30] MEDS: LACTOSE-FREE FOOD 237ML (BOOST) PO SCH ×2 (08:00→13:07)
[2017-04-30] MEDS: K and/or MAG REPLACEMENT MC SCH (08:00)
[2017-04-30] MEDS: fluconazole 150mg tablet PO SCH (08:41)
[2017-04-30] MEDS: insulin Lispro (HumaLOG) vial - multi-dose SQ SCH (09:49)
[2017-04-30 11:00] VITALS: BP 123/50
[2017-04-30] MEDS ORDERED: VANCOMYCIN LEVEL IV ONE (12:30)
== END 2017-04-30 14:20 | DRG 871 ==
LOC: ER 08:46 → ED HOLD 13:46 → PCU 3S 04-24 07:38
PROVIDERS: ADMIT Family Medicine; ATTEND Family Medicine
DX: A41.1 Sepsis due to other specified staphylococcus (principal); G93.41 Metabolic encephalopathy; N17.9 Acute kidney failure, unspecified; E11.22 Type 2 diabetes mellitus with diabetic chronic kidney disease; I13.0 Hypertensive heart and chronic kidney disease with heart failure and stage 1 through stage 4 chronic kidney disease, or unspecified chronic kidney disease; J18.9 Pneumonia, unspecified organism; I95.9 Hypotension, unspecified; I50.9 Heart failure, unspecified; E83.42 Hypomagnesemia; Z68.44 Body mass index [BMI] 60.0-69.9, adult; N39.0 Urinary tract infection, site not specified; J44.0 Chronic obstructive pulmonary disease with (acute) lower respiratory infection; E86.0 Dehydration; N20.0 Calculus of kidney; Z16.12 Extended spectrum beta lactamase (ESBL) resistance; B96.20 Unspecified Escherichia coli [E. coli] as the cause of diseases classified elsewhere; K21.9 Gastro-esophageal reflux disease without esophagitis; N18.9 Chronic kidney disease, unspecified; Z56.0 Unemployment, unspecified; Z90.49 Acquired absence of other specified parts of digestive tract; Z90.710 Acquired absence of both cervix and uterus; Z88.0 Allergy status to penicillin; Z88.6 Allergy status to analgesic agent; Z88.2 Allergy status to sulfonamides; Z88.1 Allergy status to other antibiotic agents; Z88.8 Allergy status to other drugs, medicaments and biological substances; Z79.899 Other long term (current) drug therapy
CPT/HCPCS: 36415; 70450; 71045; 74176; 80048; 80053; 80202; 81001; 82948; 83605; 83735; 84145; 85025; 85610; 85730; 87040; 87070; 87077; 87088; 87186; 93005; 94760; 96365; 97110; 97116; 97161; 97530; 99285; A6258; C1758; J1644; J1815; J1956; J2185; J2405; J3370; J7030

== ENCOUNTER 2017-05-16 18:33 | Inpatient (IN) | payer MEDICARE, OTHER ==
[~2017-05-16] VITALS: Ht 165.1 cm; Wt 166.3 kg
[~2017-05-16 18:33] MED LIST changes: +ATR0.5NEB NEB; +CEFT1VIA IM; +FAMO-128 PO; +FLUC150T PO; +FURO-150 PO; -GABA300T25 PO; +GABA600T2 PO; +GUAI100L55; +GUAI600T45 PO; +INSU100C10 SQ; +INSU100I31; +LACTC PO; +LEVO250T2 PO; +MULT-1085 PO; +NYSPWD TP; +OXYB15TA PO; +POTA10TA10 PO; +TIZA4CAP PO
[2017-05-16] MEDS ORDERED: ondansetron/PF 4mg/2ml inj IV ONE (18:45)
[2017-05-16] MEDS ORDERED: octreotide inj. 1,250 MCG in normal saline 250ml IV soln 250 ML IV ONE ×2 (18:47→18:53)
[2017-05-16] MEDS ORDERED: pantoprazole 40 MG vial IV ONE ×2 (18:50→18:55)
[2017-05-16] MEDS ORDERED: pantoprazole 40MG/NS 100ML BAG 100 ML IV ONE ×2 (18:50→18:55)
[2017-05-16] MEDS ORDERED: octreotide 100mcg/1 ml ampule IV ONE ×2 (18:55)
[2017-05-16 19:17] LABS: BASOPHILS % (AUTO) 0.4 % (0-1); EOSINOPHILS # (AUTO) 0.1 X10'3 (0-0.9); EOSINOPHILS % (AUTO) 1.1 % (0-6); HEMATOCRIT 37.5 % (35.0-45.0); HEMOGLOBIN 12.3 g/dl (12.0-16.0); LYMPHOCYTES # (AUTO) 0.6 X10'3 (1.1-4.8); LYMPHOCYTES % (AUTO) 6.1 % (21-51); MEAN CORPUSCULAR HEMOGLOBIN 25.6 PG (27.0-31.0); MEAN CORPUSCULAR HGB CONC 32.7 % (33.0-36.5); MEAN CORPUSCULAR VOLUME 78.5 FL (78-98); MEAN PLATELET VOLUME 9.2 FL (7.4-10.4); MONOCYTES # (AUTO) 0.3 X10'3 (0-0.9); MONOCYTES % (AUTO) 2.7 % (2-12); NEUTROPHILS # (AUTO) 8.4 X10'3 (1.8-7.7); NEUTROPHILS % (AUTO) 89.7 % (42-75); PLATELET COUNT 174 X10'3 (140-440); RED BLOOD COUNT 4.78 X10'6 (4.20-5.60); WHITE BLOOD COUNT 9.3 X10'3 (4.5-11.0)
[2017-05-16 19:23] LABS: INR 1.1 INR; PROTHROMBIN TIME 11.1 SECONDS (9.0-12.0)
[2017-05-16 19:27] LABS: ALANINE AMINOTRANSFERASE 28 U/L (12-78); ALBUMIN 3.6 G/DL (3.4-5.0); ALBUMIN/GLOBULIN RATIO 0.7 (1.1-1.5); ALKALINE PHOSPHATASE 86 IU/L (46-116); ANION GAP 11 (8-16); ASPARTATE AMINO TRANSFERASE 33 U/L (10-37); BILIRUBIN,TOTAL 0.5 MG/DL (0.1-1.0); BLOOD UREA NITROGEN 38 MG/DL (7-18); BUN/CREATININE RATIO 19.6 (6.6-38.0); CALCIUM 10.2 MG/DL (8.5-10.1); CHLORIDE 98 MMOL/L (99-107); CREATININE 1.94 MG/DL (0.40-0.90); GLUCOSE 254 MG/DL (70-104); MAGNESIUM 1.3 MG/DL (1.5-2.4); POTASSIUM 3.8 MMOL/L (3.5-5.1); SODIUM 140 MMOL/L (135-145); TOTAL CARBON DIOXIDE 30.7 MMOL/L (24-32); TOTAL PROTEIN 8.6 G/DL (6.4-8.2); eGFR 26 ML/MIN
[2017-05-16] MEDS ORDERED: normal saline 1000ML IV soln IVB ONE (20:05)
[2017-05-16] MEDS ORDERED: CefTRIAXone 2gm/D5W 50ml 50 ML IV ONE (21:00)
[2017-05-16 21:43] LABS: CLARITY,URINE CLEAR (Clear); COLOR,URINE YELLOW (Yellow); GLUCOSE, URINE NEGATIVE (Neg); KETONES,URINE TRACE mg/dl (Neg); LEUKOCYTE ESTERASE ,URINE SMALL (Neg); NITRITES, URINE NEGATIVE (Neg); OCCULT BLOOD,URINE NEGATIVE (Neg); PROTEIN,URINE TRACE mg/dl (Neg); UROBILINOGEN,URINE 0.2 E.U/dL (0.2-1.0)
[2017-05-16 21:45] LABS: UA COLLECTION TYPE CLN CATCH MIDSTREAM
[2017-05-16 21:56] LABS: BACTERIA,URINE 2+ /HPF (Neg); RBC,URINE NONE SEEN /HPF (0-2); SQUAMOUS EPITHELIAL CELL,UR FEW /LPF (FEW); WBC,URINE 20-30 /HPF (0-4)
[2017-05-16 21:57] LABS: YEAST MODERATE /HPF (NEGATIVE)
[2017-05-16] MEDS ORDERED: oseltamivir phos 75mg capsule PO ONE (22:00)
[2017-05-16] MEDS ORDERED: ondansetron/PF 4mg/2ml inj IV PRN (23:50)
[2017-05-17] VITALS: BP 113/68
[2017-05-17] MEDS ORDERED: glucagon, human recombinant 1mg kit SUBCUT PRN
[2017-05-17] MEDS ORDERED: dextrose 50%-water 50ml dispensing syringe IV PRN ×2
[2017-05-17] MEDS ORDERED: MESSAGE TO PHARMACY PO ONE
[2017-05-17] MEDS ORDERED: dextrose ORAL solution 15 GM/59 ML bottle PO PRN ×2
[2017-05-17] MEDS: traMADol 50MG tablet PO SCH ×4 (03:17→21:56)
[2017-05-17 05:54] LABS: BASOPHILS % (AUTO) 0.5 % (0-1); EOSINOPHILS # (AUTO) 0.1 X10'3 (0-0.9); EOSINOPHILS % (AUTO) 1.7 % (0-6); HEMOGLOBIN 11.2 g/dl (12.0-16.0); LYMPHOCYTES # (AUTO) 1.2 X10'3 (1.1-4.8); LYMPHOCYTES % (AUTO) 16.4 % (21-51); MEAN CORPUSCULAR HEMOGLOBIN 25.9 PG (27.0-31.0); MEAN CORPUSCULAR HGB CONC 33.1 % (33.0-36.5); MEAN CORPUSCULAR VOLUME 78.2 FL (78-98); MEAN PLATELET VOLUME 8.6 FL (7.4-10.4); MONOCYTES # (AUTO) 0.6 X10'3 (0-0.9); MONOCYTES % (AUTO) 7.4 % (2-12); NEUTROPHILS # (AUTO) 5.6 X10'3 (1.8-7.7); PLATELET COUNT 141 X10'3 (140-440); RED BLOOD COUNT 4.34 X10'6 (4.20-5.60); RED CELL DISTRIBUTION WIDTH 19.6 % (11.5-14.5); WHITE BLOOD COUNT 7.5 X10'3 (4.5-11.0)
[2017-05-17 06:09] LABS: ALBUMIN 3.1 G/DL (3.4-5.0); ANION GAP 10 (8-16); BLOOD UREA NITROGEN 39 MG/DL (7-18); BUN/CREATININE RATIO 24.2 (6.6-38.0); CALCIUM 9.1 MG/DL (8.5-10.1); CHLORIDE 102 MMOL/L (99-107); CREATININE 1.61 MG/DL (0.40-0.90); GLUCOSE 244 MG/DL (70-104); SODIUM 141 MMOL/L (135-145); TOTAL CARBON DIOXIDE 29.3 MMOL/L (24-32); eGFR 32 ML/MIN
[2017-05-17 06:18] LABS: POTASSIUM 2.9 MMOL/L (3.5-5.1)
[2017-05-17] MEDS ORDERED: meropenem inj 1 GM in normal saline 100ml IV soln 100 ML IV SCH (08:00)
[2017-05-17] MEDS ORDERED: oseltamivir phos 75mg capsule PO SCH ×2 (08:00)
[2017-05-17] MEDS: pregabalin 75mg capsule PO SCH ×2 (11:40→21:57)
[2017-05-17] MEDS: lactobacillus rhamnosus 10,000 MMU CELLS/CAPSULE PO SCH ×2 (11:41→21:57)
[2017-05-17] MEDS: tizanidine 4mg tablet PO SCH ×2 (11:42→21:57)
[2017-05-17] MEDS: tolterodine 2mg SR capsule (24hr) PO SCH (11:43)
[2017-05-17] MEDS: heparin, porcine 5000 units/ml vial SQ SCH ×2 (11:44→21:58)
[2017-05-17 12:22] VITALS: BP 113/68
[2017-05-17] MEDS ORDERED: meropenem inj 1 GM in dextrose 5%-water 100 ML IV SCH (13:27)
[2017-05-17] MEDS ORDERED: magnesium 4gm in 100ml NS 100 ML IV PRN (14:50)
[2017-05-17] MEDS ORDERED: potassium Cl 40MEQ/NS 500ml 500 ML IV PRN ×2 (14:50)
[2017-05-17] MEDS ORDERED: potassium Cl 20 mEq SR tablet PO PRN (14:50)
[2017-05-17] MEDS ORDERED: magnesium 2GM in 50ml NS 50 ML IV PRN (14:50)
[2017-05-17] MEDS: magnesium Cl slow-release 64mg tablet PO PRN (15:00)
[2017-05-17] MEDS: normal saline 1000ml 1,000 ML IV SCH (15:02)
[2017-05-17 16:10] LABS: C DIFF SPECIMEN=DIARRHEA? ACCEPTABLE; C DIFFICILE TOXINS A&B POSITIVE (Neg)
[2017-05-17 16:11] LABS: C DIFF ANTIGEN POSITIVE (NEGATIVE)
[2017-05-17] MEDS ORDERED: normal saline 500ml IV soln 500 ML IV ONE (18:00)
[2017-05-17 20:00] VITALS: BP 90/48
[2017-05-17] MEDS: potassium Cl 20 mEq SR tablet PO PRN (21:57)
[2017-05-17] MEDS: oseltamivir 30mg capsule PO SCH (21:57)
[2017-05-17] MEDS: insulin glargine (Lantus) pen - multi-dose SQ SCH (22:12)
[2017-05-18] VITALS (7 sets, daily range): BP systolic 89–113; BP diastolic 37–75
[2017-05-18] MEDS: normal saline 1000ml 1,000 ML IV SCH ×4 (00:46→22:27)
[2017-05-18] MEDS: potassium Cl 20 mEq SR tablet PO PRN (02:16)
[2017-05-18] MEDS: traMADol 50MG tablet PO SCH ×4 (02:17→19:37)
[2017-05-18 05:32] LABS: BASOPHILS % (AUTO) 0.1 % (0-1); EOSINOPHILS # (AUTO) 0.1 X10'3 (0-0.9); EOSINOPHILS % (AUTO) 1.1 % (0-6); HEMATOCRIT 30.2 % (35.0-45.0); HEMOGLOBIN 9.8 g/dl (12.0-16.0); LYMPHOCYTES # (AUTO) 1.9 X10'3 (1.1-4.8); LYMPHOCYTES % (AUTO) 30.9 % (21-51); MEAN CORPUSCULAR HEMOGLOBIN 25.6 PG (27.0-31.0); MEAN CORPUSCULAR HGB CONC 32.6 % (33.0-36.5); MEAN CORPUSCULAR VOLUME 78.7 FL (78-98); MEAN PLATELET VOLUME 8.8 FL (7.4-10.4); MONOCYTES # (AUTO) 0.5 X10'3 (0-0.9); MONOCYTES % (AUTO) 8.8 % (2-12); NEUTROPHILS # (AUTO) 3.6 X10'3 (1.8-7.7); NEUTROPHILS % (AUTO) 59.1 % (42-75); PLATELET COUNT 125 X10'3 (140-440); RED BLOOD COUNT 3.83 X10'6 (4.20-5.60); RED CELL DISTRIBUTION WIDTH 20.3 % (11.5-14.5); WHITE BLOOD COUNT 6.1 X10'3 (4.5-11.0)
[2017-05-18 05:48] LABS: ALBUMIN 2.7 G/DL (3.4-5.0); ANION GAP 6 (8-16); BLOOD UREA NITROGEN 39 MG/DL (7-18); BUN/CREATININE RATIO 22.8 (6.6-38.0); CHLORIDE 102 MMOL/L (99-107); CREATININE 1.71 MG/DL (0.40-0.90); GLUCOSE 206 MG/DL (70-104); MAGNESIUM 1.4 MG/DL (1.5-2.4); POTASSIUM 3.9 MMOL/L (3.5-5.1); SODIUM 139 MMOL/L (135-145); TOTAL CARBON DIOXIDE 31.1 MMOL/L (24-32); eGFR 30 ML/MIN
[2017-05-18] MEDS: lactobacillus rhamnosus 10,000 MMU CELLS/CAPSULE PO SCH ×2 (11:17→19:37)
[2017-05-18] MEDS: pregabalin 75mg capsule PO SCH ×2 (11:18→19:36)
[2017-05-18] MEDS: tizanidine 4mg tablet PO SCH ×2 (11:19→19:36)
[2017-05-18] MEDS: oseltamivir 30mg capsule PO SCH ×2 (11:19→19:37)
[2017-05-18] MEDS: tolterodine 2mg SR capsule (24hr) PO SCH (11:20)
[2017-05-18] MEDS: magnesium Cl slow-release 64mg tablet PO PRN (11:20)
[2017-05-18] MEDS: heparin, porcine 5000 units/ml vial SQ SCH ×2 (11:21→19:38)
[2017-05-18] MEDS ORDERED: GABA-581 PO (14:25)
[2017-05-18] MEDS: insulin Lispro (HumaLOG) vial - multi-dose SQ SCH ×2 (15:03→19:36)
[2017-05-18] MEDS: insulin glargine (Lantus) pen - multi-dose SQ SCH (21:23)
[2017-05-19] MEDS: magnesium Cl slow-release 64mg tablet PO PRN (01:52)
[2017-05-19] MEDS: traMADol 50MG tablet PO SCH ×4 (01:53→21:18)
[2017-05-19 04:44] LABS: BASOPHILS % (AUTO) 0.2 % (0-1); EOSINOPHILS % (AUTO) 0.3 % (0-6); HEMATOCRIT 30.3 % (35.0-45.0); HEMOGLOBIN 9.9 g/dl (12.0-16.0); LYMPHOCYTES # (AUTO) 1.9 X10'3 (1.1-4.8); LYMPHOCYTES % (AUTO) 33.8 % (21-51); MEAN CORPUSCULAR HEMOGLOBIN 25.6 PG (27.0-31.0); MEAN CORPUSCULAR HGB CONC 32.6 % (33.0-36.5); MEAN CORPUSCULAR VOLUME 78.5 FL (78-98); MEAN PLATELET VOLUME 8.8 FL (7.4-10.4); MONOCYTES # (AUTO) 0.5 X10'3 (0-0.9); MONOCYTES % (AUTO) 8.4 % (2-12); NEUTROPHILS # (AUTO) 3.2 X10'3 (1.8-7.7); NEUTROPHILS % (AUTO) 57.3 % (42-75); PLATELET COUNT 130 X10'3 (140-440); RED BLOOD COUNT 3.87 X10'6 (4.20-5.60); RED CELL DISTRIBUTION WIDTH 19.9 % (11.5-14.5); WHITE BLOOD COUNT 5.5 X10'3 (4.5-11.0)
[2017-05-19 04:55] LABS: ALBUMIN 2.6 G/DL (3.4-5.0); ANION GAP 6 (8-16); BLOOD UREA NITROGEN 39 MG/DL (7-18); BUN/CREATININE RATIO 26.5 (6.6-38.0); CALCIUM 7.9 MG/DL (8.5-10.1); CHLORIDE 104 MMOL/L (99-107); CREATININE 1.47 MG/DL (0.40-0.90); GLUCOSE 190 MG/DL (70-104); MAGNESIUM 1.5 MG/DL (1.5-2.4); POTASSIUM 4.2 MMOL/L (3.5-5.1); SODIUM 138 MMOL/L (135-145); eGFR 35 ML/MIN
[2017-05-19 07:00] VITALS: BP 82/47
[2017-05-19] MEDS: tizanidine 4mg tablet PO SCH ×2 (08:00→21:18)
[2017-05-19] MEDS: lactobacillus rhamnosus 10,000 MMU CELLS/CAPSULE PO SCH ×2 (08:52→21:17)
[2017-05-19] MEDS: tolterodine 2mg SR capsule (24hr) PO SCH (08:52)
[2017-05-19] MEDS: sertraline 50mg tablet PO SCH (08:53)
[2017-05-19] MEDS: pregabalin 75mg capsule PO SCH ×2 (08:53→21:17)
[2017-05-19] MEDS: oseltamivir 30mg capsule PO SCH ×2 (08:54→21:18)
[2017-05-19] MEDS: heparin, porcine 5000 units/ml vial SQ SCH ×2 (08:54→21:18)
[2017-05-19] MEDS: normal saline 1000ml 1,000 ML IV SCH ×2 (08:54→22:29)
[2017-05-19] MEDS: insulin Lispro (HumaLOG) vial - multi-dose SQ SCH ×3 (09:15→19:02)
[2017-05-19 11:00] VITALS: BP 102/57
[2017-05-19] MEDS ORDERED: ipratropium/albuterol 3ml nebule NEB PRN (16:20)
[2017-05-19] MEDS ORDERED: ibuprofen 200mg tablet PO ONE (16:20)
[2017-05-19 19:50] VITALS: BP 126/63
[2017-05-19] MEDS: insulin glargine (Lantus) pen - multi-dose SQ SCH (21:20)
[2017-05-20] VITALS: BP 128/45
[2017-05-20] MEDS: traMADol 50MG tablet PO SCH ×4 (01:40→20:09)
[2017-05-20 05:35] LABS: BASOPHILS % (AUTO) 0.2 % (0-1); EOSINOPHILS % (AUTO) 0.9 % (0-6); HEMATOCRIT 30.6 % (35.0-45.0); LYMPHOCYTES # (AUTO) 1.4 X10'3 (1.1-4.8); LYMPHOCYTES % (AUTO) 33.3 % (21-51); MEAN CORPUSCULAR HEMOGLOBIN 25.8 PG (27.0-31.0); MEAN CORPUSCULAR HGB CONC 32.6 % (33.0-36.5); MEAN CORPUSCULAR VOLUME 79.2 FL (78-98); MEAN PLATELET VOLUME 9.3 FL (7.4-10.4); MONOCYTES # (AUTO) 0.3 X10'3 (0-0.9); MONOCYTES % (AUTO) 7.9 % (2-12); NEUTROPHILS # (AUTO) 2.4 X10'3 (1.8-7.7); NEUTROPHILS % (AUTO) 57.7 % (42-75); PLATELET COUNT 126 X10'3 (140-440); RED BLOOD COUNT 3.86 X10'6 (4.20-5.60); RED CELL DISTRIBUTION WIDTH 20.5 % (11.5-14.5); WHITE BLOOD COUNT 4.1 X10'3 (4.5-11.0)
[2017-05-20 06:11] LABS: ALBUMIN 2.7 G/DL (3.4-5.0); ANION GAP 7 (8-16); BLOOD UREA NITROGEN 26 MG/DL (7-18); BUN/CREATININE RATIO 23.2 (6.6-38.0); CALCIUM 8.1 MG/DL (8.5-10.1); CHLORIDE 106 MMOL/L (99-107); CREATININE 1.12 MG/DL (0.40-0.90); GLUCOSE 191 MG/DL (70-104); MAGNESIUM 1.6 MG/DL (1.5-2.4); POTASSIUM 3.9 MMOL/L (3.5-5.1); SODIUM 141 MMOL/L (135-145); TOTAL CARBON DIOXIDE 27.7 MMOL/L (24-32); eGFR 48 ML/MIN
[2017-05-20 07:00] VITALS: BP 122/62
[2017-05-20] MEDS: heparin, porcine 5000 units/ml vial SQ SCH ×2 (08:49→20:10)
[2017-05-20] MEDS: tizanidine 4mg tablet PO SCH ×2 (08:50→20:08)
[2017-05-20] MEDS: sertraline 50mg tablet PO SCH (08:53)
[2017-05-20] MEDS: pregabalin 75mg capsule PO SCH ×2 (08:53→20:09)
[2017-05-20] MEDS: oseltamivir 30mg capsule PO SCH ×2 (08:55→20:13)
[2017-05-20] MEDS: lactobacillus rhamnosus 10,000 MMU CELLS/CAPSULE PO SCH ×2 (08:55→20:09)
[2017-05-20] MEDS: pantoprazole 40mg Tablet.DR PO SCH (08:55)
[2017-05-20] MEDS: tolterodine 2mg SR capsule (24hr) PO SCH (08:55)
[2017-05-20] MEDS: normal saline 1000ml 1,000 ML IV SCH ×2 (09:15→21:33)
[2017-05-20 12:14] VITALS: BP 97/39
[2017-05-20] MEDS: insulin Lispro (HumaLOG) vial - multi-dose SQ SCH ×2 (14:22→20:11)
[2017-05-20 20:00] VITALS: BP 134/59
[2017-05-20] MEDS: insulin glargine (Lantus) pen - multi-dose SQ SCH (21:43)
[2017-05-20 23:00] VITALS: BP 110/50
[2017-05-21] MEDS: traMADol 50MG tablet PO SCH ×3 (01:56→13:13)
[2017-05-21 05:07] LABS: ALBUMIN 2.5 G/DL (3.4-5.0); ANION GAP 7 (8-16); BLOOD UREA NITROGEN 17 MG/DL (7-18); BUN/CREATININE RATIO 18.5 (6.6-38.0); CALCIUM 8.2 MG/DL (8.5-10.1); CHLORIDE 107 MMOL/L (99-107); CREATININE 0.92 MG/DL (0.40-0.90); GLUCOSE 159 MG/DL (70-104); MAGNESIUM 1.7 MG/DL (1.5-2.4); POTASSIUM 4.2 MMOL/L (3.5-5.1); SODIUM 141 MMOL/L (135-145); TOTAL CARBON DIOXIDE 26.6 MMOL/L (24-32); eGFR 61 ML/MIN
[2017-05-21 05:10] LABS: BASOPHILS % (AUTO) 0.2 % (0-1); EOSINOPHILS % (AUTO) 0.5 % (0-6); HEMATOCRIT 31.3 % (35.0-45.0); HEMOGLOBIN 10.2 g/dl (12.0-16.0); LYMPHOCYTES # (AUTO) 1.2 X10'3 (1.1-4.8); MEAN CORPUSCULAR HGB CONC 32.7 % (33.0-36.5); MEAN CORPUSCULAR VOLUME 79.6 FL (78-98); MEAN PLATELET VOLUME 9.7 FL (7.4-10.4); MONOCYTES # (AUTO) 0.3 X10'3 (0-0.9); MONOCYTES % (AUTO) 9.6 % (2-12); NEUTROPHILS % (AUTO) 56.7 % (42-75); PLATELET COUNT 109 X10'3 (140-440); RED BLOOD COUNT 3.93 X10'6 (4.20-5.60); RED CELL DISTRIBUTION WIDTH 20.1 % (11.5-14.5); WHITE BLOOD COUNT 3.6 X10'3 (4.5-11.0)
[2017-05-21 07:00] VITALS: BP 104/40
[2017-05-21] MEDS: heparin, porcine 5000 units/ml vial SQ SCH (09:16)
[2017-05-21] MEDS: tolterodine 2mg SR capsule (24hr) PO SCH (09:19)
[2017-05-21] MEDS: lactobacillus rhamnosus 10,000 MMU CELLS/CAPSULE PO SCH (09:19)
[2017-05-21] MEDS: pantoprazole 40mg Tablet.DR PO SCH (09:19)
[2017-05-21] MEDS: sertraline 50mg tablet PO SCH (09:22)
[2017-05-21] MEDS: tizanidine 4mg tablet PO SCH (09:23)
[2017-05-21] MEDS: pregabalin 75mg capsule PO SCH (09:23)
[2017-05-21] MEDS: oseltamivir 30mg capsule PO SCH (09:24)
[2017-05-21] MEDS: insulin Lispro (HumaLOG) vial - multi-dose SQ SCH (09:41)
[2017-05-21] MEDS ORDERED: oseltamivir phos 75mg capsule PO SCH (10:21)
[2017-05-21 12:16] VITALS: BP 121/65
[2017-05-21] MEDS: normal saline 1000ml 1,000 ML IV SCH (12:31)
[2017-05-21] MEDS ORDERED: VANC125C4 PO (12:51)
== END 2017-05-21 16:40 | disposition home health service (06) | DRG 371 ==
LOC: ER 18:36 → ED HOLD 23:47 → EDBEDREQDT 05-17 00:41 → SUR 3N 05-17 07:15
PROVIDERS: ADMIT Family Medicine; ATTEND Legal Medicine
DX: A04.72 Enterocolitis due to Clostridium difficile, not specified as recurrent (principal); N17.0 Acute kidney failure with tubular necrosis; Z68.44 Body mass index [BMI] 60.0-69.9, adult; I13.0 Hypertensive heart and chronic kidney disease with heart failure and stage 1 through stage 4 chronic kidney disease, or unspecified chronic kidney disease; I50.9 Heart failure, unspecified; K21.9 Gastro-esophageal reflux disease without esophagitis; E11.22 Type 2 diabetes mellitus with diabetic chronic kidney disease; E66.9 Obesity, unspecified; J10.1 Influenza due to other identified influenza virus with other respiratory manifestations; J44.9 Chronic obstructive pulmonary disease, unspecified; N18.9 Chronic kidney disease, unspecified; R32 Unspecified urinary incontinence; Z16.24 Resistance to multiple antibiotics; N20.0 Calculus of kidney; Z66 Do not resuscitate; Z88.0 Allergy status to penicillin; Z88.6 Allergy status to analgesic agent; Z88.1 Allergy status to other antibiotic agents; Z88.2 Allergy status to sulfonamides; Z88.8 Allergy status to other drugs, medicaments and biological substances; Z79.899 Other long term (current) drug therapy; Z79.01 Long term (current) use of anticoagulants; Z79.82 Long term (current) use of aspirin; Z79.4 Long term (current) use of insulin; Z79.84 Long term (current) use of oral hypoglycemic drugs; Z56.0 Unemployment, unspecified; Z87.440 Personal history of urinary (tract) infections; Z87.891 Personal history of nicotine dependence; Z90.710 Acquired absence of both cervix and uterus; Z90.49 Acquired absence of other specified parts of digestive tract
CPT/HCPCS: 36415; 71045; 74176; 80048; 80053; 81001; 82948; 83605; 83735; 84145; 85025; 85610; 87040; 87070; 87088; 87324; 87449; 87502; 87503; 96365; 96366; 97116; 97161; 97530; 99285; A4333; A6213; G9035; J0696; J1644; J1815; J2185; J2405; J3480; J7030; J7042; J7060

== ENCOUNTER 2017-05-27 11:06 | Inpatient (IN) | payer MEDICARE, OTHER ==
[~2017-05-27] VITALS: Ht 160 cm; Wt 163.6 kg
[~2017-05-27 11:06] MED LIST changes: -CEFT1VIA IM; -FLUC150T PO; +GABA-581 PO; -GABA600T2 PO; -GUAI100L55; -GUAI600T45 PO; -INSU100C10 SQ; -INSU100I31; -LEVO250T2 PO; -OXYB15TA PO; +VANC125C4 PO
[2017-05-27 14:04] LABS: BASOPHILS % (AUTO) 0.4 % (0-1); EOSINOPHILS # (AUTO) 0.1 X10'3 (0-0.9); EOSINOPHILS % (AUTO) 0.9 % (0-6); HEMATOCRIT 34.9 % (35.0-45.0); HEMOGLOBIN 11.3 g/dl (12.0-16.0); LYMPHOCYTES # (AUTO) 1.6 X10'3 (1.1-4.8); LYMPHOCYTES % (AUTO) 16.9 % (21-51); MEAN CORPUSCULAR HEMOGLOBIN 25.5 PG (27.0-31.0); MEAN CORPUSCULAR HGB CONC 32.3 % (33.0-36.5); MEAN CORPUSCULAR VOLUME 79.1 FL (78-98); MEAN PLATELET VOLUME 8.9 FL (7.4-10.4); MONOCYTES # (AUTO) 0.5 X10'3 (0-0.9); MONOCYTES % (AUTO) 5.5 % (2-12); NEUTROPHILS % (AUTO) 76.3 % (42-75); PLATELET COUNT 144 X10'3 (140-440); RED BLOOD COUNT 4.41 X10'6 (4.20-5.60); WHITE BLOOD COUNT 9.2 X10'3 (4.5-11.0)
[2017-05-27 14:15] LABS: PARTIAL THROMBOPLASTIN TIME 29 SECONDS (22-32); PROTHROMBIN TIME 10.8 SECONDS (9.0-12.0)
[2017-05-27 14:19] LABS: ALANINE AMINOTRANSFERASE 22 U/L (12-78); ALBUMIN/GLOBULIN RATIO 0.7 (1.1-1.5); ALKALINE PHOSPHATASE 96 IU/L (46-116); ANION GAP 10 (8-16); ASPARTATE AMINO TRANSFERASE 26 U/L (10-37); BILIRUBIN,TOTAL 0.5 MG/DL (0.1-1.0); BLOOD UREA NITROGEN 30 MG/DL (7-18); BUN/CREATININE RATIO 21.6 (6.6-38.0); CALCIUM 8.9 MG/DL (8.5-10.1); CHLORIDE 106 MMOL/L (99-107); CREATININE 1.39 MG/DL (0.40-0.90); GLUCOSE 157 MG/DL (70-104); SODIUM 143 MMOL/L (135-145); TOTAL CARBON DIOXIDE 27.3 MMOL/L (24-32); TOTAL PROTEIN 7.3 G/DL (6.4-8.2); eGFR 38 ML/MIN
[2017-05-27 15:04] LABS: CLARITY,URINE SLIGHTLY CLOUDY (Clear); COLOR,URINE YELLOW (Yellow); GLUCOSE, URINE NEGATIVE (Neg); KETONES,URINE NEGATIVE (Neg); LEUKOCYTE ESTERASE ,URINE MODERATE (Neg); NITRITES, URINE NEGATIVE (Neg); OCCULT BLOOD,URINE TRACE-INTACT (Neg); PH,URINE 5.5 (4.8-8.0); PROTEIN,URINE TRACE mg/dl (Neg); UROBILINOGEN,URINE 0.2 E.U/dL (0.2-1.0)
[2017-05-27 15:09] LABS: UA COLLECTION TYPE OTHER
[2017-05-27 15:16] LABS: BACTERIA,URINE FEW /HPF (Neg); MUCUS STRANDS FEW /LPF (Neg); RBC,URINE 0-2 /HPF (0-2); SQUAMOUS EPITHELIAL CELL,UR MODERATE /LPF (FEW)
[2017-05-27 15:17] LABS: YEAST MODERATE /HPF (NEGATIVE)
[2017-05-27 19:02] LABS: URINE AMPHETAMINE SCREEN NEGATIVE (Neg); URINE BARBITUATE SCREEN NEGATIVE (Neg); URINE BENZODIAZEPINES SCREEN NEGATIVE (Neg); URINE CANNABINOID SCREEN NEGATIVE (Neg); URINE COCAINE SCREEN NEGATIVE (Neg); URINE METHADONE SCREEN NEGATIVE (Neg); URINE OPIATE SCREEN NEGATIVE (Neg); URINE PHENCYCLIDINE SCREEN NEGATIVE (Neg)
[2017-05-27] MEDS ORDERED: MESSAGE TO PHARMACY PO ONE (20:40)
[2017-05-27] MEDS ORDERED: mag hydrox/Alum hydrox/simeth 30ml oral suspension PO PRN (20:40)
[2017-05-27] MEDS ORDERED: potassium Cl 40MEQ/NS 500ml 500 ML IV PRN ×2 (20:40)
[2017-05-27] MEDS ORDERED: potassium Cl 20 mEq SR tablet PO PRN ×2 (20:40)
[2017-05-27] MEDS ORDERED: glucagon, human recombinant 1mg kit SUBCUT PRN (20:40)
[2017-05-27] MEDS ORDERED: magnesium hydroxide 30ml (MOM) UD suspension PO PRN (20:40)
[2017-05-27] MEDS ORDERED: ondansetron/PF 4mg/2ml inj IV PRN (20:40)
[2017-05-27] MEDS ORDERED: ipratropium/albuterol 3ml nebule NEB PRN (20:40)
[2017-05-27] MEDS ORDERED: magnesium 4gm in 100ml NS 100 ML IV PRN (20:40)
[2017-05-27] MEDS ORDERED: dextrose 50%-water 50ml dispensing syringe IV PRN ×2 (20:40)
[2017-05-27] MEDS ORDERED: dextrose ORAL solution 15 GM/59 ML bottle PO PRN ×2 (20:40)
[2017-05-27] MEDS ORDERED: magnesium 2GM in 50ml NS 50 ML IV PRN (20:40)
[2017-05-27] MEDS: insulin glargine (Lantus) pen - multi-dose SQ SCH (21:00)
[2017-05-27] MEDS: normal saline 1000ml 1,000 ML IV SCH (21:40)
[2017-05-27] MEDS: amitryptiline 50mg tablet PO SCH (21:40)
[2017-05-27] MEDS: metoprolol tartrate 25mg tablet PO SCH (21:42)
[2017-05-27 23:00] VITALS: BP 127/46
[2017-05-28] MEDS: normal saline 1000ml 1,000 ML IV SCH ×2 (00:25→16:40)
[2017-05-28] MEDS: heparin, porcine 5000 units/ml vial SQ SCH ×3 (00:26→15:31)
[2017-05-28] MEDS: oxyCODONE IR 5mg (immed. release) tablet PO PRN ×3 (03:08→21:06)
[2017-05-28 06:00] VITALS: BP 131/54
[2017-05-28 06:25] LABS: ALANINE AMINOTRANSFERASE 21 U/L (12-78); ALBUMIN 2.5 G/DL (3.4-5.0); ALBUMIN/GLOBULIN RATIO 0.7 (1.1-1.5); ALKALINE PHOSPHATASE 77 IU/L (46-116); ANION GAP 9 (8-16); ASPARTATE AMINO TRANSFERASE 28 U/L (10-37); BILIRUBIN,TOTAL 0.5 MG/DL (0.1-1.0); BLOOD UREA NITROGEN 22 MG/DL (7-18); BUN/CREATININE RATIO 20.6 (6.6-38.0); CALCIUM 8.5 MG/DL (8.5-10.1); CHLORIDE 111 MMOL/L (99-107); CREATININE 1.07 MG/DL (0.40-0.90); GLUCOSE 119 MG/DL (70-104); MAGNESIUM 1.6 MG/DL (1.5-2.4); POTASSIUM 3.7 MMOL/L (3.5-5.1); SODIUM 146 MMOL/L (135-145); TOTAL CARBON DIOXIDE 25.8 MMOL/L (24-32); TOTAL PROTEIN 6.3 G/DL (6.4-8.2); eGFR 51 ML/MIN
[2017-05-28 06:54] LABS: BASOPHILS % (AUTO) 0 % (0-1); EOSINOPHILS # (AUTO) 0.1 X10'3 (0-0.9); HEMATOCRIT 28.8 % (35.0-45.0); HEMOGLOBIN 9.5 g/dl (12.0-16.0); LYMPHOCYTES # (AUTO) 1.9 X10'3 (1.1-4.8); LYMPHOCYTES % (AUTO) 27.7 % (21-51); MEAN CORPUSCULAR HEMOGLOBIN 26.2 PG (27.0-31.0); MEAN CORPUSCULAR HGB CONC 32.8 % (33.0-36.5); MEAN PLATELET VOLUME 9.1 FL (7.4-10.4); MONOCYTES # (AUTO) 0.5 X10'3 (0-0.9); MONOCYTES % (AUTO) 7.2 % (2-12); NEUTROPHILS # (AUTO) 4.5 X10'3 (1.8-7.7); NEUTROPHILS % (AUTO) 64.1 % (42-75); PLATELET COUNT 127 X10'3 (140-440); RED CELL DISTRIBUTION WIDTH 21.8 % (11.5-14.5); WHITE BLOOD COUNT 6.9 X10'3 (4.5-11.0)
[2017-05-28] MEDS ORDERED: [UNRECOGNIZED DRUG - MIXTURE] PO SCH (08:00)
[2017-05-28] MEDS ORDERED: furosemide 20MG tablet PO SCH (08:00)
[2017-05-28] MEDS: K and/or MAG REPLACEMENT MC SCH (08:00)
[2017-05-28 10:00] VITALS: BP 109/60
[2017-05-28] MEDS: docusate sod 100mg capsule PO SCH (10:25)
[2017-05-28] MEDS: metoprolol tartrate 25mg tablet PO SCH ×2 (10:26→20:16)
[2017-05-28] MEDS: pregabalin 75mg capsule PO SCH ×2 (10:27→20:16)
[2017-05-28] MEDS: cyanocobalamin 500mcg tablet PO SCH (10:28)
[2017-05-28] MEDS: vitamin D (cholecalciferol) 1,000 unit tablet PO SCH (10:29)
[2017-05-28] MEDS: sertraline 50mg tablet PO SCH (10:30)
[2017-05-28] MEDS: aspirin 81mg tab.chew PO SCH (10:41)
[2017-05-28] MEDS: nystatin 15 GM powder TP SCH ×2 (15:31→21:00)
[2017-05-28 18:00] VITALS: BP 130/84
[2017-05-28] MEDS: lactobacillus rhamnosus 10,000 MMU CELLS/CAPSULE PO SCH (20:16)
[2017-05-28] MEDS: amitryptiline 50mg tablet PO SCH (20:16)
[2017-05-28] MEDS: insulin glargine (Lantus) pen - multi-dose SQ SCH (21:00)
[2017-05-28 22:00] VITALS: BP 124/81
[2017-05-29] MEDS: heparin, porcine 5000 units/ml vial SQ SCH ×4 (00:12→23:45)
[2017-05-29] MEDS: normal saline 1000ml 1,000 ML IV SCH ×3 (00:22→23:45)
[2017-05-29] MEDS: oxyCODONE IR 5mg (immed. release) tablet PO PRN ×3 (04:22→21:30)
[2017-05-29 06:02] LABS: BASOPHILS % (AUTO) 0.2 % (0-1); EOSINOPHILS % (AUTO) 0.7 % (0-6); HEMATOCRIT 29.3 % (35.0-45.0); HEMOGLOBIN 9.5 g/dl (12.0-16.0); LYMPHOCYTES # (AUTO) 1.9 X10'3 (1.1-4.8); LYMPHOCYTES % (AUTO) 28.3 % (21-51); MEAN CORPUSCULAR HEMOGLOBIN 25.7 PG (27.0-31.0); MEAN CORPUSCULAR HGB CONC 32.5 % (33.0-36.5); MEAN CORPUSCULAR VOLUME 79.2 FL (78-98); MEAN PLATELET VOLUME 8.2 FL (7.4-10.4); MONOCYTES # (AUTO) 0.4 X10'3 (0-0.9); MONOCYTES % (AUTO) 6.4 % (2-12); NEUTROPHILS # (AUTO) 4.3 X10'3 (1.8-7.7); NEUTROPHILS % (AUTO) 64.4 % (42-75); PLATELET COUNT 136 X10'3 (140-440); RED BLOOD COUNT 3.71 X10'6 (4.20-5.60); RED CELL DISTRIBUTION WIDTH 21.6 % (11.5-14.5); WHITE BLOOD COUNT 6.6 X10'3 (4.5-11.0)
[2017-05-29 06:35] LABS: ALANINE AMINOTRANSFERASE 21 U/L (12-78); ALBUMIN 2.6 G/DL (3.4-5.0); ALBUMIN/GLOBULIN RATIO 0.7 (1.1-1.5); ALKALINE PHOSPHATASE 73 IU/L (46-116); ANION GAP 10 (8-16); ASPARTATE AMINO TRANSFERASE 27 U/L (10-37); BILIRUBIN,TOTAL 0.4 MG/DL (0.1-1.0); BLOOD UREA NITROGEN 18 MG/DL (7-18); BUN/CREATININE RATIO 17.5 (6.6-38.0); CALCIUM 8.8 MG/DL (8.5-10.1); CHLORIDE 109 MMOL/L (99-107); CREATININE 1.03 MG/DL (0.40-0.90); GLUCOSE 139 MG/DL (70-104); MAGNESIUM 1.6 MG/DL (1.5-2.4); POTASSIUM 3.9 MMOL/L (3.5-5.1); SODIUM 144 MMOL/L (135-145); TOTAL CARBON DIOXIDE 24.6 MMOL/L (24-32); TOTAL PROTEIN 6.4 G/DL (6.4-8.2); eGFR 53 ML/MIN
[2017-05-29] MEDS: K and/or MAG REPLACEMENT MC SCH (07:58)
[2017-05-29] MEDS: docusate sod 100mg capsule PO SCH (08:00)
[2017-05-29] MEDS: lactobacillus rhamnosus 10,000 MMU CELLS/CAPSULE PO SCH ×2 (08:28→21:30)
[2017-05-29] MEDS: metoprolol tartrate 25mg tablet PO SCH ×2 (08:33→21:31)
[2017-05-29] MEDS: pregabalin 75mg capsule PO SCH ×2 (08:34→21:31)
[2017-05-29] MEDS: cyanocobalamin 500mcg tablet PO SCH (08:37)
[2017-05-29] MEDS: vitamin D (cholecalciferol) 1,000 unit tablet PO SCH (08:38)
[2017-05-29] MEDS: sertraline 50mg tablet PO SCH (08:40)
[2017-05-29] MEDS: aspirin 81mg tab.chew PO SCH (08:42)
[2017-05-29] MEDS: nystatin 15 GM powder TP SCH ×3 (08:47→21:31)
[2017-05-29] MEDS: insulin Lispro (HumaLOG) vial - multi-dose SQ SCH ×3 (09:10→18:54)
[2017-05-29 10:00] VITALS: BP 130/67
[2017-05-29 16:07] VITALS: BP_SYST 127; BP_SYST 154; BP_SYST 160; BP_DIAS 43; BP_DIAS 62; BP_DIAS 67
[2017-05-29 19:05] VITALS: BP 141/55
[2017-05-29] MEDS: amitryptiline 50mg tablet PO SCH (21:30)
[2017-05-29] MEDS: insulin glargine (Lantus) pen - multi-dose SQ SCH (21:35)
[2017-05-29 23:30] VITALS: BP 135/55
[2017-05-30] MEDS: oxyCODONE IR 5mg (immed. release) tablet PO PRN ×4 (01:33→23:39)
[2017-05-30 07:00] VITALS: BP 140/62
[2017-05-30] MEDS: docusate sod 100mg capsule PO SCH (07:07)
[2017-05-30] MEDS: lactobacillus rhamnosus 10,000 MMU CELLS/CAPSULE PO SCH ×2 (07:46→20:00)
[2017-05-30] MEDS: vitamin D (cholecalciferol) 1,000 unit tablet PO SCH (07:46)
[2017-05-30] MEDS: pregabalin 75mg capsule PO SCH ×2 (07:46→20:00)
[2017-05-30] MEDS: metoprolol tartrate 25mg tablet PO SCH ×2 (07:47→20:00)
[2017-05-30] MEDS: aspirin 81mg tab.chew PO SCH (07:47)
[2017-05-30] MEDS: cyanocobalamin 500mcg tablet PO SCH (07:48)
[2017-05-30] MEDS: sertraline 50mg tablet PO SCH (07:54)
[2017-05-30] MEDS: heparin, porcine 5000 units/ml vial SQ SCH ×3 (07:58→23:38)
[2017-05-30] MEDS: K and/or MAG REPLACEMENT MC SCH (08:00)
[2017-05-30] MEDS: nystatin 15 GM powder TP SCH ×3 (08:05→22:21)
[2017-05-30 08:22] LABS: BASOPHILS # (AUTO) 0.2 X10'3 (0-0.2); EOSINOPHILS % (AUTO) 0 % (0-6); HEMATOCRIT 29.2 % (35.0-45.0); HEMOGLOBIN 9.5 g/dl (12.0-16.0); LYMPHOCYTES # (AUTO) 2.4 X10'3 (1.1-4.8); LYMPHOCYTES % (AUTO) 27.6 % (21-51); MEAN CORPUSCULAR HEMOGLOBIN 25.7 PG (27.0-31.0); MEAN CORPUSCULAR HGB CONC 32.4 % (33.0-36.5); MEAN CORPUSCULAR VOLUME 79.3 FL (78-98); MEAN PLATELET VOLUME 8.3 FL (7.4-10.4); MONOCYTES # (AUTO) 0.5 X10'3 (0-0.9); MONOCYTES % (AUTO) 5.6 % (2-12); NEUTROPHILS # (AUTO) 5.4 X10'3 (1.8-7.7); NEUTROPHILS % (AUTO) 64.8 % (42-75); PLATELET COUNT 127 X10'3 (140-440); RED BLOOD COUNT 3.68 X10'6 (4.20-5.60); RED CELL DISTRIBUTION WIDTH 20.4 % (11.5-14.5); WHITE BLOOD COUNT 8.5 X10'3 (4.5-11.0)
[2017-05-30 08:40] LABS: ALANINE AMINOTRANSFERASE 21 U/L (12-78); ALBUMIN 2.5 G/DL (3.4-5.0); ALBUMIN/GLOBULIN RATIO 0.7 (1.1-1.5); ALKALINE PHOSPHATASE 73 IU/L (46-116); ANION GAP 9 (8-16); ASPARTATE AMINO TRANSFERASE 28 U/L (10-37); BILIRUBIN,TOTAL 0.3 MG/DL (0.1-1.0); BLOOD UREA NITROGEN 14 MG/DL (7-18); BUN/CREATININE RATIO 14.7 (6.6-38.0); CALCIUM 8.9 MG/DL (8.5-10.1); CHLORIDE 109 MMOL/L (99-107); CREATININE 0.95 MG/DL (0.40-0.90); GLUCOSE 143 MG/DL (70-104); MAGNESIUM 1.4 MG/DL (1.5-2.4); POTASSIUM 3.9 MMOL/L (3.5-5.1); SODIUM 141 MMOL/L (135-145); TOTAL CARBON DIOXIDE 23.4 MMOL/L (24-32); TOTAL PROTEIN 6.2 G/DL (6.4-8.2); eGFR 58 ML/MIN
[2017-05-30] MEDS: normal saline 1000ml 1,000 ML IV SCH ×3 (08:40→23:29)
[2017-05-30] MEDS: insulin Lispro (HumaLOG) vial - multi-dose SQ SCH ×3 (09:46→19:59)
[2017-05-30 12:00] VITALS: BP 133/64
[2017-05-30 20:00] VITALS: BP_SYST 128; BP_SYST 137; BP_SYST 143; BP_DIAS 58; BP_DIAS 59; BP_DIAS 77
[2017-05-30] MEDS: amitryptiline 50mg tablet PO SCH (22:21)
[2017-05-30] MEDS: insulin glargine (Lantus) pen - multi-dose SQ SCH (22:23)
[2017-05-31] VITALS: BP 137/77
[2017-05-31] MEDS: oxyCODONE IR 5mg (immed. release) tablet PO PRN ×2 (05:43→14:45)
[2017-05-31 06:49] LABS: BASOPHILS % (AUTO) 0.2 % (0-1); EOSINOPHILS # (AUTO) 0.1 X10'3 (0-0.9); EOSINOPHILS % (AUTO) 1.2 % (0-6); HEMATOCRIT 29.1 % (35.0-45.0); HEMOGLOBIN 9.5 g/dl (12.0-16.0); LYMPHOCYTES # (AUTO) 1.4 X10'3 (1.1-4.8); LYMPHOCYTES % (AUTO) 23.6 % (21-51); MEAN CORPUSCULAR HEMOGLOBIN 25.8 PG (27.0-31.0); MEAN CORPUSCULAR HGB CONC 32.5 % (33.0-36.5); MEAN CORPUSCULAR VOLUME 79.6 FL (78-98); MEAN PLATELET VOLUME 8.4 FL (7.4-10.4); MONOCYTES # (AUTO) 0.3 X10'3 (0-0.9); MONOCYTES % (AUTO) 5.1 % (2-12); NEUTROPHILS # (AUTO) 4.1 X10'3 (1.8-7.7); NEUTROPHILS % (AUTO) 69.9 % (42-75); PLATELET COUNT 139 X10'3 (140-440); RED BLOOD COUNT 3.66 X10'6 (4.20-5.60); RED CELL DISTRIBUTION WIDTH 21.3 % (11.5-14.5); WHITE BLOOD COUNT 5.9 X10'3 (4.5-11.0)
[2017-05-31] MEDS: lactobacillus rhamnosus 10,000 MMU CELLS/CAPSULE PO SCH ×2 (06:52→07:07)
[2017-05-31] MEDS: docusate sod 100mg capsule PO SCH ×3 (06:52→08:00)
[2017-05-31] MEDS: metoprolol tartrate 25mg tablet PO SCH ×2 (06:53→07:07)
[2017-05-31] MEDS: cyanocobalamin 500mcg tablet PO SCH ×2 (06:53→07:08)
[2017-05-31] MEDS: pregabalin 75mg capsule PO SCH ×2 (06:53→07:07)
[2017-05-31] MEDS: vitamin D (cholecalciferol) 1,000 unit tablet PO SCH ×2 (06:54→07:08)
[2017-05-31] MEDS: nystatin 15 GM powder TP SCH ×3 (06:54→12:58)
[2017-05-31] MEDS: sertraline 50mg tablet PO SCH ×2 (06:54→07:08)
[2017-05-31] MEDS: heparin, porcine 5000 units/ml vial SQ SCH ×3 (06:54→15:51)
[2017-05-31] MEDS: aspirin 81mg tab.chew PO SCH ×2 (06:55→07:09)
[2017-05-31 07:08] LABS: ALANINE AMINOTRANSFERASE 25 U/L (12-78); ALBUMIN 2.6 G/DL (3.4-5.0); ALBUMIN/GLOBULIN RATIO 0.7 (1.1-1.5); ALKALINE PHOSPHATASE 70 IU/L (46-116); ANION GAP 10 (8-16); ASPARTATE AMINO TRANSFERASE 31 U/L (10-37); BILIRUBIN,TOTAL 0.5 MG/DL (0.1-1.0); BLOOD UREA NITROGEN 12 MG/DL (7-18); BUN/CREATININE RATIO 13.5 (6.6-38.0); CALCIUM 8.8 MG/DL (8.5-10.1); CHLORIDE 109 MMOL/L (99-107); CREATININE 0.89 MG/DL (0.40-0.90); GLUCOSE 122 MG/DL (70-104); MAGNESIUM 1.4 MG/DL (1.5-2.4); POTASSIUM 3.6 MMOL/L (3.5-5.1); SODIUM 144 MMOL/L (135-145); TOTAL CARBON DIOXIDE 24.8 MMOL/L (24-32); TOTAL PROTEIN 6.5 G/DL (6.4-8.2); eGFR 63 ML/MIN
[2017-05-31] MEDS: K and/or MAG REPLACEMENT MC SCH (07:33)
[2017-05-31 07:41] VITALS: BP 146/83
[2017-05-31] MEDS: insulin Lispro (HumaLOG) vial - multi-dose SQ SCH (09:28)
[2017-05-31 11:35] VITALS: BP 148/89
[2017-05-31] MEDS: normal saline 1000ml 1,000 ML IV SCH (14:40)
== END 2017-05-31 15:00 | DRG 683 ==
LOC: ER 11:07 → ED HOLD 20:40 → ORTHO 4S 22:50 → MED 3N 05-29 12:44
PROVIDERS: ADMIT Family Medicine; ATTEND Family Medicine
DX: N17.0 Acute kidney failure with tubular necrosis (principal); E87.0 Hyperosmolality and hypernatremia; E11.22 Type 2 diabetes mellitus with diabetic chronic kidney disease; A04.72 Enterocolitis due to Clostridium difficile, not specified as recurrent; I50.32 Chronic diastolic (congestive) heart failure; E66.01 Morbid (severe) obesity due to excess calories; I13.0 Hypertensive heart and chronic kidney disease with heart failure and stage 1 through stage 4 chronic kidney disease, or unspecified chronic kidney disease; D64.9 Anemia, unspecified; B37.2 Candidiasis of skin and nail; Z68.44 Body mass index [BMI] 60.0-69.9, adult; N20.0 Calculus of kidney; G93.0 Cerebral cysts; E86.0 Dehydration; G93.9 Disorder of brain, unspecified; J44.9 Chronic obstructive pulmonary disease, unspecified; N18.9 Chronic kidney disease, unspecified; K21.9 Gastro-esophageal reflux disease without esophagitis; L30.4 Erythema intertrigo; M79.3 Panniculitis, unspecified; R09.02 Hypoxemia; B96.20 Unspecified Escherichia coli [E. coli] as the cause of diseases classified elsewhere; R29.6 Repeated falls; Z16.24 Resistance to multiple antibiotics; Z90.49 Acquired absence of other specified parts of digestive tract; Z90.710 Acquired absence of both cervix and uterus; Z88.5 Allergy status to narcotic agent; Z88.0 Allergy status to penicillin; Z88.2 Allergy status to sulfonamides; Z88.8 Allergy status to other drugs, medicaments and biological substances; Z79.899 Other long term (current) drug therapy; Z87.891 Personal history of nicotine dependence; Z82.49 Family history of ischemic heart disease and other diseases of the circulatory system
CPT/HCPCS: 36415; 70450; 71045; 80053; 80305; 81001; 82948; 83036; 83605; 83735; 84484; 85025; 85610; 85730; 87040; 87070; 87077; 87088; 87186; 93005; 94667; 94668; 94760; 97116; 97162; 97530; 99285; A6212; A6213; A6449; J1644; J1815; J7030

== ENCOUNTER 2017-08-06 09:28 | Inpatient (IN) | payer MEDICARE, OTHER ==
[~2017-08-06] VITALS: Ht 167.6 cm; Wt 150.0 kg
[~2017-08-06 09:28] MED LIST changes: +IPRA3AMP IH; -OMEP-50; +OXYB5TAB11 PO; +PROC-8 PO; -VANC125C4 PO
[2017-08-06 10:14] LABS: BASOPHILS % (AUTO) 0.1 % (0-1); EOSINOPHILS % (AUTO) 0.4 % (0-6); HEMATOCRIT 23.9 % (35.0-45.0); HEMOGLOBIN 7.7 g/dl (12.0-16.0); LYMPHOCYTES # (AUTO) 1.4 X10'3 (1.1-4.8); LYMPHOCYTES % (AUTO) 19.6 % (21-51); MEAN CORPUSCULAR HEMOGLOBIN 25.2 PG (27.0-31.0); MEAN CORPUSCULAR VOLUME 78.5 FL (78-98); MEAN PLATELET VOLUME 7.4 FL (7.4-10.4); MONOCYTES # (AUTO) 0.5 X10'3 (0-0.9); MONOCYTES % (AUTO) 6.4 % (2-12); NEUTROPHILS # (AUTO) 5.4 X10'3 (1.8-7.7); NEUTROPHILS % (AUTO) 73.5 % (42-75); PLATELET COUNT 182 X10'3 (140-440); RED BLOOD COUNT 3.05 X10'6 (4.20-5.60); RED CELL DISTRIBUTION WIDTH 19.7 % (11.5-14.5); WHITE BLOOD COUNT 7.3 X10'3 (4.5-11.0)
[2017-08-06 10:25] LABS: ALANINE AMINOTRANSFERASE 18 U/L (12-78); ALBUMIN 2.9 G/DL (3.4-5.0); ALBUMIN/GLOBULIN RATIO 0.7 (1.1-1.5); ALKALINE PHOSPHATASE 96 IU/L (46-116); ANION GAP 7 (8-16); ASPARTATE AMINO TRANSFERASE 29 U/L (10-37); BILIRUBIN,TOTAL 0.3 MG/DL (0.1-1.0); BLOOD UREA NITROGEN 30 MG/DL (7-18); BUN/CREATININE RATIO 20.3 (6.6-38.0); CALCIUM 8.5 MG/DL (8.5-10.1); CHLORIDE 106 MMOL/L (99-107); CREATININE 1.48 MG/DL (0.40-0.90); GLUCOSE 73 MG/DL (70-104); POTASSIUM 4.4 MMOL/L (3.5-5.1); SODIUM 143 MMOL/L (135-145); TOTAL CARBON DIOXIDE 29.8 MMOL/L (24-32); TOTAL PROTEIN 6.9 G/DL (6.4-8.2); eGFR 35 ML/MIN
[2017-08-06] MEDS ORDERED: normal saline 1000ML IV soln IVB ONE (11:20)
[2017-08-06] MEDS ORDERED: fentaNYL/PF 50MCG/1 ML 2ML syringe IV ONE (11:20)
[2017-08-06] MEDS ORDERED: oxyCODONE/APAP 5-325mg tablet PO ONE (13:05)
[2017-08-06 13:55] LABS: OCCULT BLOOD STOOL POSITIVE (Neg)
[2017-08-06 14:24] LABS: CLARITY,URINE CLOUDY (Clear); COLOR,URINE YELLOW (Yellow); GLUCOSE, URINE NEGATIVE (Neg); KETONES,URINE NEGATIVE (Neg); LEUKOCYTE ESTERASE ,URINE LARGE (Neg); NITRITES, URINE POSITIVE (Neg); OCCULT BLOOD,URINE TRACE-INTACT (Neg); PH,URINE 5.5 (4.8-8.0); PROTEIN,URINE NEGATIVE (Neg); UROBILINOGEN,URINE 0.2 E.U/dL (0.2-1.0)
[2017-08-06 14:27] LABS: UA COLLECTION TYPE STRAIGHT CATH
[2017-08-06 14:43] LABS: BACTERIA,URINE 4+ /HPF (Neg); SQUAMOUS EPITHELIAL CELL,UR MODERATE /LPF (FEW); WBC,URINE 50-100 /HPF (0-4)
[2017-08-06 14:44] LABS: MUCUS STRANDS FEW /LPF (Neg); TRANSITIONAL EPI CELLS,URINE MODERATE /HPF
[2017-08-06 14:45] LABS: WBC CLUMPS,URINE MANY /HPF (NEGATIVE); YEAST MANY /HPF (NEGATIVE)
[2017-08-06] MEDS ORDERED: ondansetron/PF 4mg/2ml inj IV PRN ×2 (15:00)
[2017-08-06] MEDS ORDERED: diphenhydrAMINE 50 mg/ml inj IV PRN (15:00)
[2017-08-06] MEDS ORDERED: mag hydrox/Alum hydrox/simeth 30ml oral suspension PO PRN ×2 (15:00)
[2017-08-06] MEDS ORDERED: magnesium/D5W IVPB 50 ML IV PRN (15:00)
[2017-08-06] MEDS ORDERED: potassium Cl 20 mEq SR tablet PO PRN ×2 (15:00)
[2017-08-06] MEDS ORDERED: magnesium 4gm in 100ml NS 100 ML IV PRN (15:00)
[2017-08-06] MEDS ORDERED: bisacodyl 10mg suppository rectal RC PRN (15:00)
[2017-08-06] MEDS ORDERED: potassium Cl 40MEQ/NS 500ml 500 ML IV PRN ×2 (15:00)
[2017-08-06] MEDS ORDERED: magnesium hydroxide 30ml (MOM) UD suspension PO PRN ×2 (15:00)
[2017-08-06] MEDS ORDERED: acetaminophen 325mg tablet PO PRN (15:00)
[2017-08-06] MEDS ORDERED: HYDROmorphone 1 mg/ml syringe IV PRN (15:00)
[2017-08-06] MEDS ORDERED: magnesium Cl slow-release 64mg tablet PO PRN (15:00)
[2017-08-06] MEDS ORDERED: insulin Lispro (HumaLOG) vial - multi-dose SQ SCH (15:25)
[2017-08-06] MEDS ORDERED: glucagon, human recombinant 1mg kit SUBCUT PRN (15:25)
[2017-08-06] MEDS ORDERED: MESSAGE TO PHARMACY PO ONE (15:25)
[2017-08-06] MEDS ORDERED: dextrose 50%-water 50ml dispensing syringe IV PRN ×2 (15:25)
[2017-08-06] MEDS ORDERED: dextrose ORAL solution 15 GM/59 ML bottle PO PRN ×2 (15:25)
[2017-08-06] MEDS ORDERED: ipratropium/albuterol 3ml nebule NEB PRN (15:25)
[2017-08-06 15:45] VITALS: BP 109/60
[2017-08-06 16:18] LABS: HEMATOCRIT 24.5 % (35.0-45.0); HEMOGLOBIN 7.8 g/dl (12.0-16.0); MEAN CORPUSCULAR HEMOGLOBIN 25.2 PG (27.0-31.0); MEAN CORPUSCULAR VOLUME 78.8 FL (78-98); MEAN PLATELET VOLUME 7.6 FL (7.4-10.4); PLATELET COUNT 164 X10'3 (140-440); RED BLOOD COUNT 3.11 X10'6 (4.20-5.60); RED CELL DISTRIBUTION WIDTH 19.7 % (11.5-14.5)
[2017-08-06 16:35] LABS: HEMOGLOBIN A1C 7.3 % (4.5-6.2)
[2017-08-06] MEDS: levoFLOXACIN-Levaquin 750MG/D5 150 ML IV SCH (17:08)
[2017-08-06] MEDS: normal saline 1000ml 1,000 ML IV SCH ×2 (17:09→21:03)
[2017-08-06] MEDS: K and/or MAG REPLACEMENT MC SCH (17:09)
[2017-08-06 19:00] VITALS: BP 117/66
[2017-08-06 20:56] LABS: MEAN CORPUSCULAR HGB CONC 32.1 % (33.0-36.5); MEAN CORPUSCULAR VOLUME 78.1 FL (78-98); MEAN PLATELET VOLUME 7.3 FL (7.4-10.4); PLATELET COUNT 158 X10'3 (140-440); WHITE BLOOD COUNT 5.5 X10'3 (4.5-11.0)
[2017-08-06 20:59] LABS: HEMATOCRIT 21.8 % (35.0-45.0)
[2017-08-06] MEDS: insulin glargine (Lantus) pen - multi-dose SQ SCH (21:00)
[2017-08-06] MEDS: famotidine 20mg tablet PO SCH (21:04)
[2017-08-06] MEDS: lactobacillus rhamnosus 10,000 MMU CELLS/CAPSULE PO SCH (21:04)
[2017-08-06] MEDS: pregabalin 75mg capsule PO SCH (21:04)
[2017-08-06] MEDS: metoprolol tartrate 50mg tablet PO SCH (21:04)
[2017-08-06] MEDS: traMADol 50MG tablet PO SCH (21:04)
[2017-08-06] MEDS: tizanidine 4mg tablet PO SCH (21:05)
[2017-08-06] MEDS: amitryptiline 50mg tablet PO SCH (21:06)
[2017-08-06] MEDS: HYDROmorphone 1 mg/ml syringe IV PRN (22:25)
[2017-08-07] VITALS (15 sets, daily range): BP systolic 80–134; BP diastolic 29–82
[2017-08-07] MEDS: traMADol 50MG tablet PO SCH ×4 (01:20→20:27)
[2017-08-07 06:13] LABS: BASOPHILS % (AUTO) 0.1 % (0-1); EOSINOPHILS % (AUTO) 0.2 % (0-6); LYMPHOCYTES # (AUTO) 1.4 X10'3 (1.1-4.8); MEAN CORPUSCULAR HEMOGLOBIN 26.1 PG (27.0-31.0); MEAN CORPUSCULAR HGB CONC 32.5 % (33.0-36.5); MEAN CORPUSCULAR VOLUME 80.3 FL (78-98); MEAN PLATELET VOLUME 7.6 FL (7.4-10.4); MONOCYTES # (AUTO) 0.4 X10'3 (0-0.9); MONOCYTES % (AUTO) 8.1 % (2-12); NEUTROPHILS # (AUTO) 2.9 X10'3 (1.8-7.7); NEUTROPHILS % (AUTO) 61.6 % (42-75); PLATELET COUNT 158 X10'3 (140-440); RED BLOOD COUNT 2.32 X10'6 (4.20-5.60); RED CELL DISTRIBUTION WIDTH 19.5 % (11.5-14.5); WHITE BLOOD COUNT 4.8 X10'3 (4.5-11.0)
[2017-08-07 06:18] LABS: HEMATOCRIT 18.7 % (35.0-45.0); HEMOGLOBIN 6.1 g/dl (12.0-16.0)
[2017-08-07] MEDS: normal saline 1000ml 1,000 ML IV SCH ×3 (06:30→22:30)
[2017-08-07 06:34] LABS: % IRON SATURATION 8 % (11-46); IRON 21 UG/DL (49-151); TOTAL IRON BINDING CAPACITY 280 UG/DL (259-388)
[2017-08-07 06:47] LABS: ALANINE AMINOTRANSFERASE 17 U/L (12-78); ALBUMIN 2.4 G/DL (3.4-5.0); ALBUMIN/GLOBULIN RATIO 0.7 (1.1-1.5); ALKALINE PHOSPHATASE 81 IU/L (46-116); ANION GAP 6 (8-16); ASPARTATE AMINO TRANSFERASE 24 U/L (10-37); BILIRUBIN,TOTAL 0.3 MG/DL (0.1-1.0); BLOOD UREA NITROGEN 26 MG/DL (7-18); BUN/CREATININE RATIO 17.9 (6.6-38.0); CALCIUM 8.4 MG/DL (8.5-10.1); CHLORIDE 108 MMOL/L (99-107); CREATININE 1.45 MG/DL (0.40-0.90); FERRITIN 14 NG/ML (8-252); GLUCOSE 134 MG/DL (70-104); MAGNESIUM 1.8 MG/DL (1.5-2.4); POTASSIUM 4.7 MMOL/L (3.5-5.1); SODIUM 142 MMOL/L (135-145); TOTAL PROTEIN 5.8 G/DL (6.4-8.2); eGFR 36 ML/MIN
[2017-08-07] MEDS: metoprolol tartrate 50mg tablet PO SCH ×2 (08:00→20:28)
[2017-08-07] MEDS: GABAPENTIN 600 MG PO SCH (08:00)
[2017-08-07] MEDS ORDERED: [UNRECOGNIZED DRUG - MIXTURE] PO SCH (08:00)
[2017-08-07] MEDS: furosemide 20MG tablet PO SCH (08:00)
[2017-08-07] MEDS: K and/or MAG REPLACEMENT MC SCH (08:00)
[2017-08-07] MEDS: levoFLOXACIN-Levaquin 750MG/D5 150 ML IV SCH (08:33)
[2017-08-07] MEDS: vitamin D (cholecalciferol) 1,000 unit tablet PO SCH (08:33)
[2017-08-07] MEDS: pregabalin 75mg capsule PO SCH ×2 (08:35→20:26)
[2017-08-07] MEDS: allopurinol 300 MG tablet PO SCH (08:35)
[2017-08-07] MEDS: famotidine 20mg tablet PO SCH ×2 (08:35→20:27)
[2017-08-07] MEDS: cyanocobalamin 500mcg tablet PO SCH (08:35)
[2017-08-07] MEDS: oxybutynin 5mg tablet PO SCH (08:36)
[2017-08-07] MEDS: sertraline 50mg tablet PO SCH (08:36)
[2017-08-07] MEDS: docusate sod 100mg capsule PO SCH (08:36)
[2017-08-07] MEDS: tizanidine 4mg tablet PO SCH ×2 (08:38→20:26)
[2017-08-07] MEDS: tolterodine 2mg SR capsule (24hr) PO SCH (08:39)
[2017-08-07] MEDS: lactobacillus rhamnosus 10,000 MMU CELLS/CAPSULE PO SCH ×2 (08:44→20:26)
[2017-08-07 10:02] LABS: MEAN CORPUSCULAR HEMOGLOBIN 25.3 PG (27.0-31.0); MEAN CORPUSCULAR VOLUME 79.1 FL (78-98); MEAN PLATELET VOLUME 7.3 FL (7.4-10.4); PLATELET COUNT 144 X10'3 (140-440); RED BLOOD COUNT 2.44 X10'6 (4.20-5.60); RED CELL DISTRIBUTION WIDTH 19.9 % (11.5-14.5); WHITE BLOOD COUNT 4.7 X10'3 (4.5-11.0)
[2017-08-07 10:07] LABS: HEMOGLOBIN 6.2 g/dl (12.0-16.0)
[2017-08-07 10:08] LABS: HEMATOCRIT 19.3 % (35.0-45.0)
[2017-08-07] MEDS: nystatin 15 GM powder TP SCH (13:00)
[2017-08-07] MEDS: emollient combination-Eucerin 250 ML LOTION TP SCH (13:00)
[2017-08-07] MEDS: HYDROmorphone 1 mg/ml syringe IV PRN (14:42)
[2017-08-07] MEDS: amitryptiline 50mg tablet PO SCH (20:25)
[2017-08-07] MEDS: insulin glargine (Lantus) pen - multi-dose SQ SCH (21:00)
[2017-08-07 23:49] LABS: HEMATOCRIT 24.6 % (35.0-45.0); HEMOGLOBIN 7.9 g/dl (12.0-16.0); MEAN CORPUSCULAR HEMOGLOBIN 25.7 PG (27.0-31.0); MEAN CORPUSCULAR HGB CONC 32.1 % (33.0-36.5); MEAN CORPUSCULAR VOLUME 79.9 FL (78-98); MEAN PLATELET VOLUME 7.1 FL (7.4-10.4); PLATELET COUNT 174 X10'3 (140-440); RED BLOOD COUNT 3.08 X10'6 (4.20-5.60); WHITE BLOOD COUNT 6.5 X10'3 (4.5-11.0)
[2017-08-08] VITALS (10 sets, daily range): BP systolic 88–164; BP diastolic 36–85
[2017-08-08] MEDS: traMADol 50MG tablet PO SCH ×4 (02:00→20:28)
[2017-08-08] MEDS: HYDROmorphone 1 mg/ml syringe IV PRN ×3 (04:08→17:23)
[2017-08-08 06:29] LABS: BASOPHILS % (AUTO) 0.3 % (0-1); EOSINOPHILS % (AUTO) 0.3 % (0-6); HEMATOCRIT 25.2 % (35.0-45.0); HEMOGLOBIN 8.3 g/dl (12.0-16.0); LYMPHOCYTES # (AUTO) 1.5 X10'3 (1.1-4.8); LYMPHOCYTES % (AUTO) 19.2 % (21-51); MEAN CORPUSCULAR HEMOGLOBIN 25.9 PG (27.0-31.0); MEAN CORPUSCULAR HGB CONC 32.8 % (33.0-36.5); MEAN CORPUSCULAR VOLUME 79.1 FL (78-98); MEAN PLATELET VOLUME 7.6 FL (7.4-10.4); MONOCYTES # (AUTO) 0.5 X10'3 (0-0.9); NEUTROPHILS # (AUTO) 5.7 X10'3 (1.8-7.7); NEUTROPHILS % (AUTO) 74.2 % (42-75); PLATELET COUNT 169 X10'3 (140-440); RED BLOOD COUNT 3.18 X10'6 (4.20-5.60); WHITE BLOOD COUNT 7.7 X10'3 (4.5-11.0)
[2017-08-08] MEDS: normal saline 1000ml 1,000 ML IV SCH ×3 (06:30→22:30)
[2017-08-08 06:41] LABS: ALANINE AMINOTRANSFERASE 21 U/L (12-78); ALBUMIN 2.8 G/DL (3.4-5.0); ALBUMIN/GLOBULIN RATIO 0.7 (1.1-1.5); ALKALINE PHOSPHATASE 91 IU/L (46-116); ANION GAP 7 (8-16); ASPARTATE AMINO TRANSFERASE 22 U/L (10-37); BILIRUBIN,TOTAL 0.6 MG/DL (0.1-1.0); BLOOD UREA NITROGEN 23 MG/DL (7-18); BUN/CREATININE RATIO 16.4 (6.6-38.0); CALCIUM 8.6 MG/DL (8.5-10.1); CHLORIDE 104 MMOL/L (99-107); GLUCOSE 166 MG/DL (70-104); MAGNESIUM 1.7 MG/DL (1.5-2.4); PHOSPHORUS 3.8 MG/DL (2.3-4.5); POTASSIUM 4.5 MMOL/L (3.5-5.1); SODIUM 137 MMOL/L (135-145); TOTAL CARBON DIOXIDE 26.1 MMOL/L (24-32); TOTAL PROTEIN 6.9 G/DL (6.4-8.2); eGFR 37 ML/MIN
[2017-08-08] MEDS: K and/or MAG REPLACEMENT MC SCH (08:00)
[2017-08-08] MEDS ORDERED: levoFLOXACIN 750MG TABLET PO SCH (08:00)
[2017-08-08] MEDS: nystatin 15 GM powder TP SCH ×4 (08:00→21:00)
[2017-08-08] MEDS: GABAPENTIN 600 MG PO SCH (08:00)
[2017-08-08] MEDS ORDERED: cefepime 2gm inj IV SCH (09:10)
[2017-08-08] MEDS: pregabalin 75mg capsule PO SCH ×2 (09:12→20:26)
[2017-08-08] MEDS: allopurinol 300 MG tablet PO SCH (09:12)
[2017-08-08] MEDS: cyanocobalamin 500mcg tablet PO SCH (09:13)
[2017-08-08] MEDS: furosemide 20MG tablet PO SCH (09:13)
[2017-08-08] MEDS: lactobacillus rhamnosus 10,000 MMU CELLS/CAPSULE PO SCH ×2 (09:13→20:26)
[2017-08-08] MEDS: vitamin D (cholecalciferol) 1,000 unit tablet PO SCH (09:14)
[2017-08-08] MEDS: tolterodine 2mg SR capsule (24hr) PO SCH (09:14)
[2017-08-08] MEDS: famotidine 20mg tablet PO SCH ×2 (09:14→20:25)
[2017-08-08] MEDS: oxybutynin 5mg tablet PO SCH (09:15)
[2017-08-08] MEDS: docusate sod 100mg capsule PO SCH (09:15)
[2017-08-08] MEDS: sertraline 50mg tablet PO SCH (09:15)
[2017-08-08] MEDS: tizanidine 4mg tablet PO SCH ×2 (09:15→20:27)
[2017-08-08] MEDS: metoprolol tartrate 50mg tablet PO SCH ×2 (09:16→20:25)
[2017-08-08] MEDS: emollient combination-Eucerin 250 ML LOTION TP SCH (09:16)
[2017-08-08] MEDS ORDERED: normal saline 1000ml 1,000 ML IV SCH (09:47)
[2017-08-08] MEDS ORDERED: MIDAZolam 5mg/5ml vial IV PRN (09:50)
[2017-08-08] MEDS ORDERED: fentaNYL/PF 50MCG/1 ML 2ML syringe IV PRN (09:50)
[2017-08-08] MEDS ORDERED: simethicone 40mg/0.6ml oral drops 30ml MC ONE (09:50)
[2017-08-08] MEDS ORDERED: LIDOcaine Viscous 15ml cup PO ONE (09:50)
[2017-08-08] MEDS ORDERED: MIDAZolam 5mg/5ml vial ONE (10:31)
[2017-08-08] MEDS ORDERED: fentaNYL/PF 50MCG/1 ML 2ML syringe ONE (10:31)
[2017-08-08] MEDS ORDERED: LIDOcaine Viscous 15ml cup ONE (10:32)
[2017-08-08] MEDS ORDERED: PEG 3350/Na sulf,bicarb,Cl/KCl oral sol 4 liter bottle PO ONE (12:35)
[2017-08-08] MEDS: cefepime 1GM/NS ADD-VANTAGE 100 ML IV SCH (17:23)
[2017-08-08] MEDS: amitryptiline 50mg tablet PO SCH (20:27)
[2017-08-08] MEDS: insulin glargine (Lantus) pen - multi-dose SQ SCH (21:00)
[2017-08-09 03:00] VITALS: BP 105/44
[2017-08-09] MEDS: normal saline 1000ml 1,000 ML IV SCH ×3 (03:01→20:44)
[2017-08-09] MEDS: traMADol 50MG tablet PO SCH ×4 (03:02→20:46)
[2017-08-09 06:00] VITALS: BP_SYST 130; BP_SYST 90; BP_DIAS 107; BP_DIAS 51
[2017-08-09] MEDS: docusate sod 100mg capsule PO SCH (08:00)
[2017-08-09] MEDS: vitamin D (cholecalciferol) 1,000 unit tablet PO SCH (08:00)
[2017-08-09] MEDS: cyanocobalamin 500mcg tablet PO SCH (08:00)
[2017-08-09] MEDS: metoprolol tartrate 50mg tablet PO SCH ×2 (08:00→21:00)
[2017-08-09] MEDS: K and/or MAG REPLACEMENT MC SCH (08:00)
[2017-08-09] MEDS: oxybutynin 5mg tablet PO SCH (08:00)
[2017-08-09] MEDS: lactobacillus rhamnosus 10,000 MMU CELLS/CAPSULE PO SCH ×2 (08:00→20:45)
[2017-08-09] MEDS: tolterodine 2mg SR capsule (24hr) PO SCH (08:00)
[2017-08-09] MEDS: furosemide 20MG tablet PO SCH (08:00)
[2017-08-09] MEDS: GABAPENTIN 600 MG PO SCH (08:00)
[2017-08-09] MEDS: cefepime 1GM/NS ADD-VANTAGE 100 ML IV SCH (08:00)
[2017-08-09] MEDS: allopurinol 300 MG tablet PO SCH (08:30)
[2017-08-09] MEDS: pregabalin 75mg capsule PO SCH ×2 (09:23→20:46)
[2017-08-09] MEDS: famotidine 20mg tablet PO SCH ×2 (09:23→20:45)
[2017-08-09] MEDS: sertraline 50mg tablet PO SCH (09:31)
[2017-08-09] MEDS: tizanidine 4mg tablet PO SCH ×2 (09:36→20:44)
[2017-08-09] MEDS: nystatin 15 GM powder TP SCH ×3 (09:37→21:09)
[2017-08-09] MEDS: emollient combination-Eucerin 250 ML LOTION TP SCH (09:37)
[2017-08-09 11:00] VITALS: BP 99/74
[2017-08-09 14:12] LABS: ALANINE AMINOTRANSFERASE 14 U/L (12-78); ALBUMIN 2.4 G/DL (3.4-5.0); ALBUMIN/GLOBULIN RATIO 0.6 (1.1-1.5); ALKALINE PHOSPHATASE 81 IU/L (46-116); ANION GAP 8 (8-16); ASPARTATE AMINO TRANSFERASE 18 U/L (10-37); BILIRUBIN,TOTAL 0.6 MG/DL (0.1-1.0); BLOOD UREA NITROGEN 19 MG/DL (7-18); BUN/CREATININE RATIO 15.7 (6.6-38.0); CALCIUM 8.4 MG/DL (8.5-10.1); CHLORIDE 106 MMOL/L (99-107); CREATININE 1.21 MG/DL (0.40-0.90); GLUCOSE 157 MG/DL (70-104); MAGNESIUM 1.6 MG/DL (1.5-2.4); PHOSPHORUS 3.3 MG/DL (2.3-4.5); POTASSIUM 4.2 MMOL/L (3.5-5.1); SODIUM 141 MMOL/L (135-145); TOTAL CARBON DIOXIDE 26.9 MMOL/L (24-32); TOTAL PROTEIN 6.2 G/DL (6.4-8.2); eGFR 44 ML/MIN
[2017-08-09 15:00] VITALS: BP 121/58
[2017-08-09 18:16] LABS: BASOPHILS % (AUTO) 0.5 % (0-1); EOSINOPHILS % (AUTO) 0.1 % (0-6); HEMATOCRIT 26.7 % (35.0-45.0); HEMOGLOBIN 8.8 g/dl (12.0-16.0); LYMPHOCYTES # (AUTO) 1.2 X10'3 (1.1-4.8); LYMPHOCYTES % (AUTO) 16.1 % (21-51); MEAN CORPUSCULAR HEMOGLOBIN 26.2 PG (27.0-31.0); MEAN CORPUSCULAR HGB CONC 32.9 % (33.0-36.5); MEAN CORPUSCULAR VOLUME 79.6 FL (78-98); MEAN PLATELET VOLUME 7.8 FL (7.4-10.4); MONOCYTES # (AUTO) 0.6 X10'3 (0-0.9); MONOCYTES % (AUTO) 8.7 % (2-12); NEUTROPHILS # (AUTO) 5.4 X10'3 (1.8-7.7); NEUTROPHILS % (AUTO) 74.6 % (42-75); PLATELET COUNT 127 X10'3 (140-440); RED BLOOD COUNT 3.36 X10'6 (4.20-5.60); RED CELL DISTRIBUTION WIDTH 19.1 % (11.5-14.5); WHITE BLOOD COUNT 7.2 X10'3 (4.5-11.0)
[2017-08-09 19:00] VITALS: BP 133/47
[2017-08-09] MEDS: amitryptiline 50mg tablet PO SCH (20:57)
[2017-08-09] MEDS: insulin glargine (Lantus) pen - multi-dose SQ SCH (21:00)
[2017-08-10] VITALS (9 sets, daily range): BP systolic 107–140; BP diastolic 43–79
[2017-08-10] MEDS: traMADol 50MG tablet PO SCH ×4 (02:00→20:50)
[2017-08-10] MEDS: normal saline 1000ml 1,000 ML IV SCH ×2 (05:18→14:30)
[2017-08-10 06:29] LABS: ALANINE AMINOTRANSFERASE 11 U/L (12-78); ALBUMIN 2.2 G/DL (3.4-5.0); ALBUMIN/GLOBULIN RATIO 0.6 (1.1-1.5); ALKALINE PHOSPHATASE 80 IU/L (46-116); ANION GAP 8 (8-16); ASPARTATE AMINO TRANSFERASE 19 U/L (10-37); BILIRUBIN,TOTAL 0.6 MG/DL (0.1-1.0); BLOOD UREA NITROGEN 17 MG/DL (7-18); BUN/CREATININE RATIO 14.7 (6.6-38.0); CALCIUM 7.9 MG/DL (8.5-10.1); CHLORIDE 106 MMOL/L (99-107); CREATININE 1.16 MG/DL (0.40-0.90); GLUCOSE 138 MG/DL (70-104); MAGNESIUM 1.6 MG/DL (1.5-2.4); PHOSPHORUS 2.9 MG/DL (2.3-4.5); POTASSIUM 3.8 MMOL/L (3.5-5.1); SODIUM 141 MMOL/L (135-145); eGFR 46 ML/MIN
[2017-08-10 07:00] LABS: BASOPHILS % (AUTO) 0 % (0-1); EOSINOPHILS % (AUTO) 0.1 % (0-6); HEMOGLOBIN 7.1 g/dl (12.0-16.0); LYMPHOCYTES # (AUTO) 1.3 X10'3 (1.1-4.8); LYMPHOCYTES % (AUTO) 22.5 % (21-51); MEAN CORPUSCULAR HEMOGLOBIN 27.6 PG (27.0-31.0); MEAN CORPUSCULAR HGB CONC 32.7 % (33.0-36.5); MEAN CORPUSCULAR VOLUME 84.4 FL (78-98); MEAN PLATELET VOLUME 7.8 FL (7.4-10.4); MONOCYTES # (AUTO) 0.5 X10'3 (0-0.9); MONOCYTES % (AUTO) 7.5 % (2-12); NEUTROPHILS # (AUTO) 4.2 X10'3 (1.8-7.7); NEUTROPHILS % (AUTO) 69.9 % (42-75); PLATELET COUNT 138 X10'3 (140-440); RED BLOOD COUNT 2.58 X10'6 (4.20-5.60); RED CELL DISTRIBUTION WIDTH 18.6 % (11.5-14.5)
[2017-08-10 07:04] LABS: HEMATOCRIT 21.8 % (35.0-45.0)
[2017-08-10] MEDS: emollient combination-Eucerin 250 ML LOTION TP SCH (08:00)
[2017-08-10] MEDS: GABAPENTIN 600 MG PO SCH (08:00)
[2017-08-10] MEDS: K and/or MAG REPLACEMENT MC SCH (08:00)
[2017-08-10] MEDS ORDERED: levoFLOXACIN 750MG TABLET PO SCH (08:00)
[2017-08-10] MEDS: docusate sod 100mg capsule PO SCH (09:22)
[2017-08-10] MEDS: cyanocobalamin 500mcg tablet PO SCH (09:23)
[2017-08-10] MEDS: tizanidine 4mg tablet PO SCH ×3 (09:23→20:46)
[2017-08-10] MEDS: furosemide 20MG tablet PO SCH (09:23)
[2017-08-10] MEDS: pregabalin 75mg capsule PO SCH ×2 (09:23→20:49)
[2017-08-10] MEDS: sertraline 50mg tablet PO SCH (09:23)
[2017-08-10] MEDS: lactobacillus rhamnosus 10,000 MMU CELLS/CAPSULE PO SCH ×2 (09:23→20:46)
[2017-08-10] MEDS: famotidine 20mg tablet PO SCH ×2 (09:24→20:49)
[2017-08-10] MEDS: allopurinol 300 MG tablet PO SCH (09:25)
[2017-08-10] MEDS: metoprolol tartrate 50mg tablet PO SCH ×2 (09:25→20:48)
[2017-08-10] MEDS: oxybutynin 5mg tablet PO SCH (09:25)
[2017-08-10] MEDS: nystatin 15 GM powder TP SCH ×3 (09:31→20:51)
[2017-08-10] MEDS: tolterodine 2mg SR capsule (24hr) PO SCH (09:31)
[2017-08-10] MEDS ORDERED: fentaNYL/PF 50MCG/1 ML 2ML syringe ONE (10:35)
[2017-08-10] MEDS ORDERED: MIDAZolam 5mg/5ml vial ONE (10:35)
[2017-08-10] MEDS: cefepime 1GM/NS ADD-VANTAGE 100 ML IV SCH (14:23)
[2017-08-10] MEDS: vitamin D (cholecalciferol) 1,000 unit tablet PO SCH (14:23)
[2017-08-10] MEDS: amitryptiline 50mg tablet PO SCH (20:46)
[2017-08-10] MEDS: diatr meglu/diatrizoate 30ml oral sol.-(3 dose) bottle PO SCH ×2 (20:51→21:00)
[2017-08-10] MEDS: insulin glargine (Lantus) pen - multi-dose SQ SCH (21:00)
[2017-08-11] MEDS: normal saline 1000ml 1,000 ML IV SCH ×4 (01:52→21:58)
[2017-08-11 02:00] VITALS: BP 101/53
[2017-08-11] MEDS: traMADol 50MG tablet PO SCH ×4 (02:16→21:57)
[2017-08-11 05:42] LABS: BASOPHILS % (AUTO) 0.2 % (0-1); EOSINOPHILS # (AUTO) 0.1 X10'3 (0-0.9); EOSINOPHILS % (AUTO) 0.9 % (0-6); HEMATOCRIT 22.1 % (35.0-45.0); HEMOGLOBIN 7.2 g/dl (12.0-16.0); LYMPHOCYTES # (AUTO) 1.3 X10'3 (1.1-4.8); LYMPHOCYTES % (AUTO) 20.9 % (21-51); MEAN CORPUSCULAR HEMOGLOBIN 27.1 PG (27.0-31.0); MEAN CORPUSCULAR HGB CONC 32.5 % (33.0-36.5); MEAN CORPUSCULAR VOLUME 83.3 FL (78-98); MEAN PLATELET VOLUME 7.8 FL (7.4-10.4); MONOCYTES # (AUTO) 0.4 X10'3 (0-0.9); MONOCYTES % (AUTO) 7.1 % (2-12); NEUTROPHILS # (AUTO) 4.5 X10'3 (1.8-7.7); NEUTROPHILS % (AUTO) 70.9 % (42-75); PLATELET COUNT 146 X10'3 (140-440); RED BLOOD COUNT 2.66 X10'6 (4.20-5.60); WHITE BLOOD COUNT 6.3 X10'3 (4.5-11.0)
[2017-08-11 06:00] VITALS: BP 105/45
[2017-08-11 06:01] LABS: ALANINE AMINOTRANSFERASE 12 U/L (12-78); ALBUMIN 2.3 G/DL (3.4-5.0); ALBUMIN/GLOBULIN RATIO 0.6 (1.1-1.5); ALKALINE PHOSPHATASE 83 IU/L (46-116); ANION GAP 6 (8-16); ASPARTATE AMINO TRANSFERASE 19 U/L (10-37); BILIRUBIN,TOTAL 0.6 MG/DL (0.1-1.0); BLOOD UREA NITROGEN 17 MG/DL (7-18); BUN/CREATININE RATIO 13.6 (6.6-38.0); CALCIUM 7.7 MG/DL (8.5-10.1); CHLORIDE 107 MMOL/L (99-107); CREATININE 1.25 MG/DL (0.40-0.90); GLUCOSE 138 MG/DL (70-104); MAGNESIUM 1.6 MG/DL (1.5-2.4); PHOSPHORUS 3.1 MG/DL (2.3-4.5); SODIUM 140 MMOL/L (135-145); TOTAL CARBON DIOXIDE 26.6 MMOL/L (24-32); TOTAL PROTEIN 6.1 G/DL (6.4-8.2); eGFR 42 ML/MIN
[2017-08-11] MEDS: diatr meglu/diatrizoate 30ml oral sol.-(3 dose) bottle PO SCH ×4 (07:05→10:24)
[2017-08-11] MEDS: nystatin 15 GM powder TP SCH ×3 (07:27→22:05)
[2017-08-11] MEDS: sertraline 50mg tablet PO SCH (07:28)
[2017-08-11] MEDS: GABAPENTIN 600 MG PO SCH (08:00)
[2017-08-11] MEDS: emollient combination-Eucerin 250 ML LOTION TP SCH (08:00)
[2017-08-11] MEDS: K and/or MAG REPLACEMENT MC SCH (08:00)
[2017-08-11] MEDS: cefepime 1GM/NS ADD-VANTAGE 100 ML IV SCH (08:47)
[2017-08-11] MEDS: vitamin D (cholecalciferol) 1,000 unit tablet PO SCH (09:24)
[2017-08-11] MEDS: furosemide 20MG tablet PO SCH (09:25)
[2017-08-11] MEDS: pregabalin 75mg capsule PO SCH ×2 (09:25→21:56)
[2017-08-11] MEDS: tolterodine 2mg SR capsule (24hr) PO SCH (09:25)
[2017-08-11] MEDS: lactobacillus rhamnosus 10,000 MMU CELLS/CAPSULE PO SCH ×2 (09:25→21:55)
[2017-08-11] MEDS: docusate sod 100mg capsule PO SCH (09:25)
[2017-08-11] MEDS: allopurinol 300 MG tablet PO SCH (09:26)
[2017-08-11] MEDS: famotidine 20mg tablet PO SCH ×2 (09:26→21:56)
[2017-08-11] MEDS: oxybutynin 5mg tablet PO SCH (09:26)
[2017-08-11] MEDS: cyanocobalamin 500mcg tablet PO SCH (09:27)
[2017-08-11] MEDS: metoprolol tartrate 50mg tablet PO SCH ×2 (09:30→21:55)
[2017-08-11] MEDS ORDERED: heparin sodium, porcine/PF 100unit/ml 5ML syringe ONE (09:39)
[2017-08-11] MEDS: gabapentin 300mg capsule PO SCH ×2 (14:04→21:56)
[2017-08-11 15:00] VITALS: BP 114/33
[2017-08-11 18:00] VITALS: BP 142/42
[2017-08-11] MEDS: insulin glargine (Lantus) pen - multi-dose SQ SCH (21:00)
[2017-08-11] MEDS: tizanidine 4mg tablet PO SCH (21:56)
[2017-08-11] MEDS: amitryptiline 50mg tablet PO SCH (21:56)
[2017-08-11 22:00] VITALS: BP 117/45
[2017-08-12] VITALS (7 sets, daily range): BP systolic 96–117; BP diastolic 30–47
[2017-08-12] MEDS: traMADol 50MG tablet PO SCH ×4 (02:34→21:01)
[2017-08-12 05:33] LABS: BASOPHILS % (AUTO) 0.2 % (0-1); EOSINOPHILS % (AUTO) 0.8 % (0-6); HEMATOCRIT 22.9 % (35.0-45.0); HEMOGLOBIN 7.3 g/dl (12.0-16.0); LYMPHOCYTES # (AUTO) 1.1 X10'3 (1.1-4.8); LYMPHOCYTES % (AUTO) 20.6 % (21-51); MEAN CORPUSCULAR HEMOGLOBIN 25.9 PG (27.0-31.0); MEAN CORPUSCULAR HGB CONC 31.6 % (33.0-36.5); MEAN CORPUSCULAR VOLUME 82.1 FL (78-98); MEAN PLATELET VOLUME 7.7 FL (7.4-10.4); MONOCYTES # (AUTO) 0.4 X10'3 (0-0.9); MONOCYTES % (AUTO) 7.9 % (2-12); NEUTROPHILS # (AUTO) 3.9 X10'3 (1.8-7.7); NEUTROPHILS % (AUTO) 70.5 % (42-75); PLATELET COUNT 153 X10'3 (140-440); RED BLOOD COUNT 2.79 X10'6 (4.20-5.60); RED CELL DISTRIBUTION WIDTH 20.4 % (11.5-14.5); WHITE BLOOD COUNT 5.5 X10'3 (4.5-11.0)
[2017-08-12] MEDS: normal saline 1000ml 1,000 ML IV SCH ×2 (05:43→13:55)
[2017-08-12 06:11] LABS: ALANINE AMINOTRANSFERASE 19 U/L (12-78); ALBUMIN 2.2 G/DL (3.4-5.0); ALBUMIN/GLOBULIN RATIO 0.5 (1.1-1.5); ALKALINE PHOSPHATASE 95 IU/L (46-116); ANION GAP 9 (8-16); ASPARTATE AMINO TRANSFERASE 21 U/L (10-37); BILIRUBIN,TOTAL 0.6 MG/DL (0.1-1.0); BLOOD UREA NITROGEN 17 MG/DL (7-18); BUN/CREATININE RATIO 14.5 (6.6-38.0); CALCIUM 8.3 MG/DL (8.5-10.1); CHLORIDE 107 MMOL/L (99-107); CREATININE 1.17 MG/DL (0.40-0.90); GLUCOSE 147 MG/DL (70-104); MAGNESIUM 1.6 MG/DL (1.5-2.4); PHOSPHORUS 3.2 MG/DL (2.3-4.5); POTASSIUM 3.9 MMOL/L (3.5-5.1); SODIUM 143 MMOL/L (135-145); TOTAL CARBON DIOXIDE 26.7 MMOL/L (24-32); TOTAL PROTEIN 6.3 G/DL (6.4-8.2); eGFR 46 ML/MIN
[2017-08-12] MEDS: K and/or MAG REPLACEMENT MC SCH (08:00)
[2017-08-12] MEDS: emollient combination-Eucerin 250 ML LOTION TP SCH (08:00)
[2017-08-12] MEDS: nystatin 15 GM powder TP SCH ×3 (08:00→21:09)
[2017-08-12] MEDS: cefepime 1GM/NS ADD-VANTAGE 100 ML IV SCH (09:14)
[2017-08-12] MEDS: docusate sod 100mg capsule PO SCH (09:15)
[2017-08-12] MEDS: lactobacillus rhamnosus 10,000 MMU CELLS/CAPSULE PO SCH ×2 (09:15→21:00)
[2017-08-12] MEDS: tolterodine 2mg SR capsule (24hr) PO SCH (09:16)
[2017-08-12] MEDS: oxybutynin 5mg tablet PO SCH (09:16)
[2017-08-12] MEDS: furosemide 20MG tablet PO SCH (09:17)
[2017-08-12] MEDS: metoprolol tartrate 50mg tablet PO SCH ×2 (09:17→20:59)
[2017-08-12] MEDS: pregabalin 75mg capsule PO SCH ×2 (09:18→20:58)
[2017-08-12] MEDS: gabapentin 300mg capsule PO SCH ×3 (09:18→21:01)
[2017-08-12] MEDS: famotidine 20mg tablet PO SCH ×2 (09:19→21:01)
[2017-08-12] MEDS: vitamin D (cholecalciferol) 1,000 unit tablet PO SCH (09:20)
[2017-08-12] MEDS: cyanocobalamin 500mcg tablet PO SCH (09:20)
[2017-08-12] MEDS: tizanidine 4mg tablet PO SCH ×2 (09:20→21:00)
[2017-08-12] MEDS: sertraline 50mg tablet PO SCH (09:20)
[2017-08-12] MEDS: allopurinol 300 MG tablet PO SCH (09:21)
[2017-08-12] MEDS: amitryptiline 50mg tablet PO SCH (20:59)
[2017-08-12] MEDS: insulin glargine (Lantus) pen - multi-dose SQ SCH (21:00)
[2017-08-13] MEDS: traMADol 50MG tablet PO SCH ×3 (02:00→14:17)
[2017-08-13 03:00] VITALS: BP 117/75
[2017-08-13 06:00] VITALS: BP 110/52
[2017-08-13] MEDS: docusate sod 100mg capsule PO SCH (08:00)
[2017-08-13] MEDS: K and/or MAG REPLACEMENT MC SCH (08:00)
[2017-08-13] MEDS: tolterodine 2mg SR capsule (24hr) PO SCH (08:04)
[2017-08-13] MEDS: cefepime 1GM/NS ADD-VANTAGE 100 ML IV SCH (08:04)
[2017-08-13] MEDS: lactobacillus rhamnosus 10,000 MMU CELLS/CAPSULE PO SCH (08:04)
[2017-08-13] MEDS: furosemide 20MG tablet PO SCH (08:05)
[2017-08-13] MEDS: oxybutynin 5mg tablet PO SCH (08:05)
[2017-08-13] MEDS: gabapentin 300mg capsule PO SCH ×2 (08:05→14:16)
[2017-08-13] MEDS: famotidine 20mg tablet PO SCH (08:05)
[2017-08-13] MEDS: pregabalin 75mg capsule PO SCH (08:05)
[2017-08-13] MEDS: metoprolol tartrate 50mg tablet PO SCH (08:05)
[2017-08-13] MEDS: cyanocobalamin 500mcg tablet PO SCH (08:06)
[2017-08-13] MEDS: vitamin D (cholecalciferol) 1,000 unit tablet PO SCH (08:06)
[2017-08-13] MEDS: tizanidine 4mg tablet PO SCH (08:06)
[2017-08-13] MEDS: allopurinol 300 MG tablet PO SCH (08:07)
[2017-08-13] MEDS: sertraline 50mg tablet PO SCH (08:07)
[2017-08-13] MEDS: emollient combination-Eucerin 250 ML LOTION TP SCH (08:07)
[2017-08-13] MEDS: nystatin 15 GM powder TP SCH ×2 (08:07→13:00)
[2017-08-13 11:00] VITALS: BP 106/37
[2017-08-13 11:19] LABS: BASOPHILS % (AUTO) 0.2 % (0-1); HEMATOCRIT 23.5 % (35.0-45.0); HEMOGLOBIN 7.5 g/dl (12.0-16.0); LYMPHOCYTES # (AUTO) 0.9 X10'3 (1.1-4.8); LYMPHOCYTES % (AUTO) 18.2 % (21-51); MEAN CORPUSCULAR HEMOGLOBIN 26.1 PG (27.0-31.0); MEAN CORPUSCULAR HGB CONC 31.9 % (33.0-36.5); MEAN CORPUSCULAR VOLUME 81.6 FL (78-98); MEAN PLATELET VOLUME 7.2 FL (7.4-10.4); MONOCYTES # (AUTO) 0.3 X10'3 (0-0.9); NEUTROPHILS # (AUTO) 3.6 X10'3 (1.8-7.7); NEUTROPHILS % (AUTO) 74.6 % (42-75); PLATELET COUNT 148 X10'3 (140-440); RED BLOOD COUNT 2.88 X10'6 (4.20-5.60); WHITE BLOOD COUNT 4.9 X10'3 (4.5-11.0)
[2017-08-13 11:43] LABS: ALANINE AMINOTRANSFERASE 14 U/L (12-78); ALBUMIN 2.3 G/DL (3.4-5.0); ALBUMIN/GLOBULIN RATIO 0.6 (1.1-1.5); ALKALINE PHOSPHATASE 91 IU/L (46-116); ANION GAP 6 (8-16); ASPARTATE AMINO TRANSFERASE 16 U/L (10-37); BILIRUBIN,TOTAL 0.4 MG/DL (0.1-1.0); BLOOD UREA NITROGEN 16 MG/DL (7-18); CALCIUM 8.3 MG/DL (8.5-10.1); CHLORIDE 107 MMOL/L (99-107); CREATININE 1.23 MG/DL (0.40-0.90); GLUCOSE 153 MG/DL (70-104); MAGNESIUM 1.6 MG/DL (1.5-2.4); PHOSPHORUS 3.5 MG/DL (2.3-4.5); POTASSIUM 4.1 MMOL/L (3.5-5.1); SODIUM 141 MMOL/L (135-145); TOTAL CARBON DIOXIDE 27.7 MMOL/L (24-32); TOTAL PROTEIN 6.3 G/DL (6.4-8.2); eGFR 43 ML/MIN
[2017-08-13] MEDS: normal saline 1000ml 1,000 ML IV SCH (11:43)
== END 2017-08-13 16:10 | DRG 604 ==
LOC: ER 09:29 → ED HOLD 14:57 → PCU 3S 16:35 → UNDODISIN 08-10 13:35
PROVIDERS: ADMIT Family Medicine; ATTEND Family Medicine
PROC: 30233N1 Transfusion of Nonautologous Red Blood Cells into Peripheral Vein, Percutaneous Approach (ICD-10-PCS; principal; 2017-08-07)
PROC: 5A09357 Assistance with Respiratory Ventilation, Less than 24 Consecutive Hours, Continuous Positive Airway Pressure (ICD-10-PCS; 2017-08-07)
PROC: 5A09357 Assistance with Respiratory Ventilation, Less than 24 Consecutive Hours, Continuous Positive Airway Pressure (ICD-10-PCS; 2017-08-08)
PROC: 0DB98ZX Excision of Duodenum, Via Natural or Artificial Opening Endoscopic, Diagnostic (ICD-10-PCS; 2017-08-08)
PROC: 0DJD8ZZ Inspection of Lower Intestinal Tract, Via Natural or Artificial Opening Endoscopic (ICD-10-PCS; 2017-08-10)
PROC: CD171ZZ Planar Nuclear Medicine Imaging of Gastrointestinal Tract using Technetium 99m (Tc-99m) (ICD-10-PCS; 2017-08-11)
DX: S80.11XA Contusion of right lower leg, initial encounter (principal); K29.71 Gastritis, unspecified, with bleeding; N39.0 Urinary tract infection, site not specified; E66.2 Morbid (severe) obesity with alveolar hypoventilation; Z68.43 Body mass index [BMI] 50.0-59.9, adult; I13.0 Hypertensive heart and chronic kidney disease with heart failure and stage 1 through stage 4 chronic kidney disease, or unspecified chronic kidney disease; K57.30 Diverticulosis of large intestine without perforation or abscess without bleeding; S09.90XA Unspecified injury of head, initial encounter; J44.9 Chronic obstructive pulmonary disease, unspecified; F32.9 Major depressive disorder, single episode, unspecified; D50.9 Iron deficiency anemia, unspecified; E11.21 Type 2 diabetes mellitus with diabetic nephropathy; E11.22 Type 2 diabetes mellitus with diabetic chronic kidney disease; E78.5 Hyperlipidemia, unspecified; F41.9 Anxiety disorder, unspecified; I50.9 Heart failure, unspecified; M19.90 Unspecified osteoarthritis, unspecified site; W06.XXXA Fall from bed, initial encounter; B96.20 Unspecified Escherichia coli [E. coli] as the cause of diseases classified elsewhere; Z16.30 Resistance to unspecified antimicrobial drugs; N18.9 Chronic kidney disease, unspecified; R29.6 Repeated falls; Z66 Do not resuscitate; Z56.0 Unemployment, unspecified; Z74.01 Bed confinement status; Z99.81 Dependence on supplemental oxygen; Z90.710 Acquired absence of both cervix and uterus; Z90.49 Acquired absence of other specified parts of digestive tract; Z88.0 Allergy status to penicillin; Z88.1 Allergy status to other antibiotic agents; Z88.6 Allergy status to analgesic agent; Z88.2 Allergy status to sulfonamides; Z88.8 Allergy status to other drugs, medicaments and biological substances; Z79.4 Long term (current) use of insulin; Z79.899 Other long term (current) drug therapy; Z79.82 Long term (current) use of aspirin; Z87.891 Personal history of nicotine dependence; Z82.49 Family history of ischemic heart disease and other diseases of the circulatory system; Z83.3 Family history of diabetes mellitus; Y92.003 Bedroom of unspecified non-institutional (private) residence as the place of occurrence of the external cause; Y93.89 Activity, other specified; Y99.8 Other external cause status
CPT/HCPCS: 36415; 43239; 45378; 70450; 72125; 73564; 73590; 74176; 78278; 80053; 81001; 82272; 82607; 82728; 82746; 82948; 83036; 83540; 83550; 83735; 84100; 84484; 85025; 85027; 86885; 86900; 86901; 86920; 87070; 87077; 87088; 87186; 88305; 94660; 94760; 96374; 97530; 99285; A4620; A6212; A9560; G0500; J0692; J1170; J1642; J1815; J1956; J2250; J3010; J7030; P9016; Q9963

== ENCOUNTER 2018-01-12 14:06 | Inpatient (IN) | payer MEDICARE, OTHER ==
[~2018-01-12] VITALS: Ht 158.8 cm; Wt 155.0 kg
[2018-01-12] VITALS (7 sets, daily range): BP systolic 102–128; BP diastolic 45–73
[~2018-01-12 14:06] MED LIST changes: -IPRA3AMP IH; +IPRA3AMP31 IH
[2018-01-12 14:48] LABS: BASOPHILS % (AUTO) 0.1 % (0-1); EOSINOPHILS # (AUTO) 0.1 X10'3 (0-0.9); EOSINOPHILS % (AUTO) 1.3 % (0-6); LYMPHOCYTES # (AUTO) 1.2 X10'3 (1.1-4.8); LYMPHOCYTES % (AUTO) 14.4 % (21-51); MEAN CORPUSCULAR HEMOGLOBIN 17.5 PG (27.0-31.0); MEAN CORPUSCULAR HGB CONC 28.4 % (33.0-36.5); MEAN CORPUSCULAR VOLUME 61.8 FL (78-98); MEAN PLATELET VOLUME 7.8 FL (7.4-10.4); MONOCYTES # (AUTO) 0.5 X10'3 (0-0.9); MONOCYTES % (AUTO) 5.9 % (2-12); NEUTROPHILS # (AUTO) 6.3 X10'3 (1.8-7.7); NEUTROPHILS % (AUTO) 78.3 % (42-75); PLATELET COUNT 197 X10'3 (140-440); RED BLOOD COUNT 2.78 X10'6 (4.20-5.60); RED CELL DISTRIBUTION WIDTH 22.2 % (11.5-14.5); WHITE BLOOD COUNT 8.1 X10'3 (4.5-11.0)
[2018-01-12 14:54] LABS: HEMOGLOBIN 4.9 g/dl (12.0-16.0)
[2018-01-12 14:55] LABS: HEMATOCRIT 17.2 % (35.0-45.0)
[2018-01-12 15:03] LABS: ALANINE AMINOTRANSFERASE 19 U/L (12-78); ALBUMIN 2.8 G/DL (3.4-5.0); ALBUMIN/GLOBULIN RATIO 0.7 (1.1-1.5); ALKALINE PHOSPHATASE 98 IU/L (46-116); ANION GAP 9 (8-16); ASPARTATE AMINO TRANSFERASE 18 U/L (10-37); BILIRUBIN,TOTAL 0.5 MG/DL (0.1-1.0); BLOOD UREA NITROGEN 26 MG/DL (7-18); BUN/CREATININE RATIO 19.7 (6.6-38.0); CALCIUM 8.7 MG/DL (8.5-10.1); CHLORIDE 103 MMOL/L (99-107); CREATININE 1.32 MG/DL (0.40-0.90); GLUCOSE 286 MG/DL (70-104); POTASSIUM 4.4 MMOL/L (3.5-5.1); SODIUM 139 MMOL/L (135-145); eGFR 40 ML/MIN
[2018-01-12 15:08] LABS: ANISOCYTOSIS 3+; HYPOCHROMASIA 2+; LARGE PLATELETS FEW; MICROCYTOSIS 2+; PLATELET ESTIMATE NORMAL; POLYCHROMASIA FEW
[2018-01-12 15:19] LABS: INR 1.2 INR; PARTIAL THROMBOPLASTIN TIME 26 SECONDS (22-32); PROTHROMBIN TIME 11.6 SECONDS (9.0-12.0)
[2018-01-12] MEDS ORDERED: normal saline 1000ml 1,000 ML IV SCH (16:18)
[2018-01-12] MEDS ORDERED: potassium Cl 20 mEq SR tablet PO PRN ×2 (16:20)
[2018-01-12] MEDS ORDERED: morphine 2 MG/ML inj. syringe IV PRN (16:20)
[2018-01-12] MEDS ORDERED: acetaminophen 325mg tablet PO PRN ×2 (16:20)
[2018-01-12] MEDS ORDERED: potassium Cl 40MEQ/NS 500ml 500 ML IV PRN ×2 (16:20)
[2018-01-12] MEDS ORDERED: mag hydrox/Alum hydrox/simeth 30ml oral suspension PO PRN (16:20)
[2018-01-12] MEDS ORDERED: HYDROcodone/acetaminophen 5mg/325mg tablet PO PRN (16:20)
[2018-01-12] MEDS ORDERED: ondansetron/PF 4mg/2ml inj IV PRN (16:20)
[2018-01-12] MEDS ORDERED: dextrose 50%-water 50ml dispensing syringe IV PRN ×2 (16:25)
[2018-01-12] MEDS ORDERED: glucagon, human recombinant 1mg kit SUBCUT PRN (16:25)
[2018-01-12] MEDS ORDERED: MESSAGE TO PHARMACY PO ONE (16:25)
[2018-01-12] MEDS ORDERED: dextrose ORAL solution 15 GM/59 ML bottle PO PRN ×2 (16:25)
[2018-01-12] MEDS ORDERED: cyclobenzaprine 10mg tablet PO PRN (16:55)
[2018-01-12] MEDS: albuterol 2.5 MG/3 ML nebule NEB SCH ×2 (19:47→23:44)
[2018-01-12] MEDS: pantoprazole 40 MG vial IV SCH (20:04)
[2018-01-12] MEDS: amitryptiline 50mg tablet PO SCH (20:05)
[2018-01-12] MEDS: metoprolol tartrate 25mg tablet PO SCH (20:06)
[2018-01-12] MEDS: gabapentin 400mg capsule PO SCH (21:10)
[2018-01-12 22:54] LABS: MEAN CORPUSCULAR HEMOGLOBIN 19.5 PG (27.0-31.0); MEAN CORPUSCULAR HGB CONC 29.5 % (33.0-36.5); MEAN CORPUSCULAR VOLUME 66.1 FL (78-98); PLATELET COUNT 164 X10'3 (140-440); RED BLOOD COUNT 3.16 X10'6 (4.20-5.60); RED CELL DISTRIBUTION WIDTH 26.4 % (11.5-14.5); WHITE BLOOD COUNT 8.3 X10'3 (4.5-11.0)
[2018-01-12 22:58] LABS: HEMATOCRIT 20.9 % (35.0-45.0); HEMOGLOBIN 6.2 g/dl (12.0-16.0)
[2018-01-12] MEDS: insulin glargine (Lantus) pen - multi-dose SQ SCH (23:36)
[2018-01-13] VITALS (12 sets, daily range): BP systolic 117–157; BP diastolic 35–86
[2018-01-13] MEDS: traMADol 50MG tablet PO PRN ×2 (03:25→21:56)
[2018-01-13] MEDS: albuterol 2.5 MG/3 ML nebule NEB SCH ×6 (03:36→23:17)
[2018-01-13 07:22] LABS: BASOPHILS % (AUTO) 0.1 % (0-1); EOSINOPHILS # (AUTO) 0.1 X10'3 (0-0.9); EOSINOPHILS % (AUTO) 1.3 % (0-6); LYMPHOCYTES # (AUTO) 1.4 X10'3 (1.1-4.8); LYMPHOCYTES % (AUTO) 14.9 % (21-51); MEAN CORPUSCULAR HGB CONC 29.4 % (33.0-36.5); MEAN CORPUSCULAR VOLUME 67.8 FL (78-98); MEAN PLATELET VOLUME 7.8 FL (7.4-10.4); MONOCYTES # (AUTO) 0.7 X10'3 (0-0.9); MONOCYTES % (AUTO) 7.2 % (2-12); NEUTROPHILS # (AUTO) 7.1 X10'3 (1.8-7.7); NEUTROPHILS % (AUTO) 76.5 % (42-75); PLATELET COUNT 165 X10'3 (140-440); RED BLOOD COUNT 3.23 X10'6 (4.20-5.60); WHITE BLOOD COUNT 9.3 X10'3 (4.5-11.0)
[2018-01-13 07:30] LABS: HEMATOCRIT 21.9 % (35.0-45.0); HEMOGLOBIN 6.4 g/dl (12.0-16.0)
[2018-01-13 07:38] LABS: ANISOCYTOSIS 3+; ELLIPTOCYTES 1+; HYPOCHROMASIA 2+; MICROCYTOSIS 2+; PLATELET ESTIMATE NORMAL; POLYCHROMASIA 2+; TEAR DROP CELLS 1+
[2018-01-13] MEDS: K and/or MAG REPLACEMENT MC SCH (08:00)
[2018-01-13] MEDS ORDERED: non-formulary drug (Gabapentin (Gralise) 3 TAB) PO SCH (08:00)
[2018-01-13] MEDS: losartan 50mg tablet PO SCH (08:07)
[2018-01-13] MEDS: metoprolol tartrate 25mg tablet PO SCH ×2 (08:07→21:32)
[2018-01-13] MEDS: gabapentin 400mg capsule PO SCH ×3 (08:07→21:32)
[2018-01-13] MEDS: docusate sod 100mg capsule PO SCH (08:07)
[2018-01-13] MEDS: pantoprazole 40 MG vial IV SCH (08:08)
[2018-01-13] MEDS: allopurinol 300 MG tablet PO SCH (08:08)
[2018-01-13] MEDS: sertraline 50mg tablet PO SCH (08:08)
[2018-01-13] MEDS: insulin Lispro (HumaLOG) vial - multi-dose SQ SCH ×3 (09:13→21:39)
[2018-01-13] MEDS ORDERED: furosemide 40mg/4ml inj IV ONE ×2 (09:40→15:25)
[2018-01-13 15:17] LABS: OCCULT BLOOD STOOL NEGATIVE (Neg)
[2018-01-13] MEDS: furosemide 20 MG/2 ML vial IV SCH (21:33)
[2018-01-13] MEDS: amitryptiline 50mg tablet PO SCH (21:33)
[2018-01-13] MEDS: insulin glargine (Lantus) pen - multi-dose SQ SCH (21:40)
[2018-01-13] MEDS: nystatin 15 GM powder TP SCH ×2 (21:49→21:55)
[2018-01-14] MEDS: albuterol 2.5 MG/3 ML nebule NEB SCH ×6 (03:27→23:00)
[2018-01-14 06:00] VITALS: BP 123/63
[2018-01-14 07:59] LABS: BASOPHILS % (AUTO) 0.3 % (0-1); EOSINOPHILS # (AUTO) 0.1 X10'3 (0-0.9); EOSINOPHILS % (AUTO) 1.1 % (0-6); HEMATOCRIT 24.2 % (35.0-45.0); HEMOGLOBIN 7.1 g/dl (12.0-16.0); LYMPHOCYTES # (AUTO) 1.3 X10'3 (1.1-4.8); LYMPHOCYTES % (AUTO) 13.8 % (21-51); MEAN CORPUSCULAR HEMOGLOBIN 20.6 PG (27.0-31.0); MEAN CORPUSCULAR HGB CONC 29.5 % (33.0-36.5); MEAN CORPUSCULAR VOLUME 69.8 FL (78-98); MEAN PLATELET VOLUME 8.1 FL (7.4-10.4); MONOCYTES # (AUTO) 0.7 X10'3 (0-0.9); MONOCYTES % (AUTO) 7.2 % (2-12); NEUTROPHILS # (AUTO) 7.5 X10'3 (1.8-7.7); NEUTROPHILS % (AUTO) 77.6 % (42-75); PLATELET COUNT 164 X10'3 (140-440); RED BLOOD COUNT 3.46 X10'6 (4.20-5.60); RED CELL DISTRIBUTION WIDTH 28.1 % (11.5-14.5); WHITE BLOOD COUNT 9.7 X10'3 (4.5-11.0)
[2018-01-14] MEDS: nystatin 15 GM powder TP SCH ×3 (08:00→20:33)
[2018-01-14] MEDS: docusate sod 100mg capsule PO SCH (08:00)
[2018-01-14] MEDS: K and/or MAG REPLACEMENT MC SCH (08:00)
[2018-01-14] MEDS: insulin Lispro (HumaLOG) vial - multi-dose SQ SCH ×2 (08:41→19:49)
[2018-01-14] MEDS: pantoprazole 40mg Tablet.DR PO SCH (08:45)
[2018-01-14] MEDS: furosemide 20 MG/2 ML vial IV SCH ×2 (08:45→19:54)
[2018-01-14] MEDS: losartan 50mg tablet PO SCH (08:45)
[2018-01-14] MEDS: metoprolol tartrate 25mg tablet PO SCH ×2 (08:46→20:32)
[2018-01-14] MEDS: gabapentin 400mg capsule PO SCH ×3 (08:46→20:28)
[2018-01-14] MEDS: allopurinol 300 MG tablet PO SCH (08:46)
[2018-01-14] MEDS: sertraline 50mg tablet PO SCH (08:46)
[2018-01-14 09:37] LABS: ANISOCYTOSIS 3+; MICROCYTOSIS 2+; PLATELET ESTIMATE NORMAL
[2018-01-14 09:38] LABS: HYPOCHROMASIA 2+; POLYCHROMASIA 1+
[2018-01-14 10:00] VITALS: BP 125/58
[2018-01-14 11:36] LABS: HEMOGLOBIN A1C 7.6 % (4.5-6.2)
[2018-01-14 11:38] LABS: ALBUMIN 2.9 G/DL (3.4-5.0); ANION GAP 8 (8-16); BLOOD UREA NITROGEN 17 MG/DL (7-18); CALCIUM 8.6 MG/DL (8.5-10.1); CHLORIDE 102 MMOL/L (99-107); CREATININE 1.21 MG/DL (0.40-0.90); GLUCOSE 207 MG/DL (70-104); POTASSIUM 3.7 MMOL/L (3.5-5.1); SODIUM 141 MMOL/L (135-145); TOTAL CARBON DIOXIDE 31.3 MMOL/L (24-32); eGFR 44 ML/MIN
[2018-01-14 11:41] LABS: MAGNESIUM 1.4 MG/DL (1.5-2.4)
[2018-01-14 18:00] VITALS: BP 131/60
[2018-01-14] MEDS: amitryptiline 50mg tablet PO SCH (20:32)
[2018-01-14] MEDS: insulin glargine (Lantus) pen - multi-dose SQ SCH (21:40)
[2018-01-14 22:00] VITALS: BP 132/60
[2018-01-15] MEDS: albuterol 2.5 MG/3 ML nebule NEB SCH ×6 (03:00→23:40)
[2018-01-15 06:00] VITALS: BP 129/54
[2018-01-15 07:19] LABS: BASOPHILS % (AUTO) 0.2 % (0-1); EOSINOPHILS # (AUTO) 0.1 X10'3 (0-0.9); EOSINOPHILS % (AUTO) 1.5 % (0-6); HEMATOCRIT 25.2 % (35.0-45.0); HEMOGLOBIN 7.4 g/dl (12.0-16.0); LYMPHOCYTES # (AUTO) 1.6 X10'3 (1.1-4.8); LYMPHOCYTES % (AUTO) 16.7 % (21-51); MEAN CORPUSCULAR HEMOGLOBIN 20.5 PG (27.0-31.0); MEAN CORPUSCULAR HGB CONC 29.3 % (33.0-36.5); MEAN CORPUSCULAR VOLUME 69.9 FL (78-98); MEAN PLATELET VOLUME 7.9 FL (7.4-10.4); MONOCYTES # (AUTO) 0.7 X10'3 (0-0.9); MONOCYTES % (AUTO) 7.2 % (2-12); NEUTROPHILS # (AUTO) 7.3 X10'3 (1.8-7.7); NEUTROPHILS % (AUTO) 74.4 % (42-75); PLATELET COUNT 173 X10'3 (140-440); WHITE BLOOD COUNT 9.9 X10'3 (4.5-11.0)
[2018-01-15 07:25] LABS: ALBUMIN 2.8 G/DL (3.4-5.0); ANION GAP 7 (8-16); BLOOD UREA NITROGEN 20 MG/DL (7-18); BUN/CREATININE RATIO 16.9 (6.6-38.0); CALCIUM 8.6 MG/DL (8.5-10.1); CHLORIDE 101 MMOL/L (99-107); CREATININE 1.18 MG/DL (0.40-0.90); GLUCOSE 205 MG/DL (70-104); MAGNESIUM 1.3 MG/DL (1.5-2.4); POTASSIUM 3.6 MMOL/L (3.5-5.1); SODIUM 141 MMOL/L (135-145); TOTAL CARBON DIOXIDE 33.1 MMOL/L (24-32); eGFR 45 ML/MIN
[2018-01-15 07:37] LABS: ANISOCYTOSIS 3+; HYPOCHROMASIA 1+; MICROCYTOSIS 2+; PLATELET ESTIMATE NORMAL
[2018-01-15 07:38] LABS: POLYCHROMASIA 1+
[2018-01-15] MEDS: K and/or MAG REPLACEMENT MC SCH (08:00)
[2018-01-15] MEDS: nystatin 15 GM powder TP SCH ×3 (08:00→20:51)
[2018-01-15] MEDS: losartan 50mg tablet PO SCH (08:52)
[2018-01-15] MEDS: furosemide 20 MG/2 ML vial IV SCH ×2 (08:52→20:48)
[2018-01-15] MEDS: pantoprazole 40mg Tablet.DR PO SCH (08:52)
[2018-01-15] MEDS: docusate sod 100mg capsule PO SCH (08:52)
[2018-01-15] MEDS: gabapentin 400mg capsule PO SCH ×3 (08:53→20:48)
[2018-01-15] MEDS: metoprolol tartrate 25mg tablet PO SCH ×2 (08:53→20:51)
[2018-01-15] MEDS: sertraline 50mg tablet PO SCH (08:54)
[2018-01-15] MEDS: allopurinol 300 MG tablet PO SCH (08:54)
[2018-01-15 10:00] VITALS: BP 145/69
[2018-01-15] MEDS: insulin Lispro (HumaLOG) vial - multi-dose SQ SCH ×3 (10:15→19:30)
[2018-01-15] MEDS: traMADol 50MG tablet PO PRN (12:11)
[2018-01-15] MEDS: magnesium Cl slow-release 64mg tablet PO PRN (13:18)
[2018-01-15 18:00] VITALS: BP 139/67
[2018-01-15] MEDS: amitryptiline 50mg tablet PO SCH (20:51)
[2018-01-15 22:00] VITALS: BP 118/51
[2018-01-15] MEDS: insulin glargine (Lantus) pen - multi-dose SQ SCH (22:42)
[2018-01-16] MEDS: albuterol 2.5 MG/3 ML nebule NEB SCH ×4 (03:51→15:00)
[2018-01-16 06:02] LABS: BASOPHILS % (AUTO) 0.1 % (0-1); EOSINOPHILS # (AUTO) 0.1 X10'3 (0-0.9); EOSINOPHILS % (AUTO) 1.4 % (0-6); HEMATOCRIT 26.3 % (35.0-45.0); HEMOGLOBIN 7.9 g/dl (12.0-16.0); LYMPHOCYTES # (AUTO) 1.8 X10'3 (1.1-4.8); LYMPHOCYTES % (AUTO) 17.7 % (21-51); MEAN CORPUSCULAR HEMOGLOBIN 20.8 PG (27.0-31.0); MEAN CORPUSCULAR VOLUME 69.4 FL (78-98); MEAN PLATELET VOLUME 7.9 FL (7.4-10.4); MONOCYTES # (AUTO) 0.7 X10'3 (0-0.9); MONOCYTES % (AUTO) 6.8 % (2-12); NEUTROPHILS # (AUTO) 7.7 X10'3 (1.8-7.7); PLATELET COUNT 186 X10'3 (140-440); RED CELL DISTRIBUTION WIDTH 30.7 % (11.5-14.5); WHITE BLOOD COUNT 10.4 X10'3 (4.5-11.0)
[2018-01-16 07:06] LABS: ANISOCYTOSIS 3+; MICROCYTOSIS 2+; PLATELET ESTIMATE NORMAL
[2018-01-16 07:07] LABS: HYPOCHROMASIA 1+; POLYCHROMASIA 1+
[2018-01-16 07:17] VITALS: BP 141/61
[2018-01-16] MEDS: pantoprazole 40mg Tablet.DR PO SCH (07:56)
[2018-01-16] MEDS: magnesium Cl slow-release 64mg tablet PO PRN (07:57)
[2018-01-16] MEDS: furosemide 20 MG/2 ML vial IV SCH (07:57)
[2018-01-16] MEDS: losartan 50mg tablet PO SCH (07:58)
[2018-01-16] MEDS: docusate sod 100mg capsule PO SCH (07:58)
[2018-01-16] MEDS: K and/or MAG REPLACEMENT MC SCH (08:00)
[2018-01-16] MEDS: metoprolol tartrate 25mg tablet PO SCH (08:00)
[2018-01-16] MEDS: gabapentin 400mg capsule PO SCH ×2 (08:00→14:00)
[2018-01-16] MEDS: sertraline 50mg tablet PO SCH (08:01)
[2018-01-16] MEDS: allopurinol 300 MG tablet PO SCH (08:02)
[2018-01-16] MEDS: nystatin 15 GM powder TP SCH ×2 (08:02→14:01)
[2018-01-16] MEDS: insulin Lispro (HumaLOG) vial - multi-dose SQ SCH ×2 (09:16→13:56)
[2018-01-16 10:00] VITALS: BP 138/72
[2018-01-16] MEDS ORDERED: ASCO500C15 PO (12:30)
[2018-01-16] MEDS ORDERED: FERR325T28 PO (12:30)
== END 2018-01-16 16:05 | disposition home health service (06) | DRG 811 ==
LOC: ER 14:06 → ED HOLD 16:18 → EDBEDREQ 23:03 → ORTHO 4S 23:21
PROVIDERS: ADMIT Internal Medicine; ATTEND Family Medicine
PROC: 30233N1 Transfusion of Nonautologous Red Blood Cells into Peripheral Vein, Percutaneous Approach (ICD-10-PCS; principal; 2018-01-12)
PROC: 30233N1 Transfusion of Nonautologous Red Blood Cells into Peripheral Vein, Percutaneous Approach (ICD-10-PCS; 2018-01-13)
DX: D50.9 Iron deficiency anemia, unspecified (principal); I50.33 Acute on chronic diastolic (congestive) heart failure; I13.0 Hypertensive heart and chronic kidney disease with heart failure and stage 1 through stage 4 chronic kidney disease, or unspecified chronic kidney disease; Z68.44 Body mass index [BMI] 60.0-69.9, adult; N17.9 Acute kidney failure, unspecified; N18.3 Chronic kidney disease, stage 3 (moderate); E11.22 Type 2 diabetes mellitus with diabetic chronic kidney disease; E66.01 Morbid (severe) obesity due to excess calories; E78.5 Hyperlipidemia, unspecified; I35.0 Nonrheumatic aortic (valve) stenosis; K57.90 Diverticulosis of intestine, part unspecified, without perforation or abscess without bleeding; F41.9 Anxiety disorder, unspecified; G47.30 Sleep apnea, unspecified; G89.4 Chronic pain syndrome; J44.9 Chronic obstructive pulmonary disease, unspecified; Z66 Do not resuscitate; Z90.710 Acquired absence of both cervix and uterus; Z88.8 Allergy status to other drugs, medicaments and biological substances; Z88.5 Allergy status to narcotic agent; Z88.0 Allergy status to penicillin; Z88.2 Allergy status to sulfonamides; Z79.899 Other long term (current) drug therapy; Z79.82 Long term (current) use of aspirin; Z87.440 Personal history of urinary (tract) infections; Z87.891 Personal history of nicotine dependence; Z87.01 Personal history of pneumonia (recurrent); Z82.49 Family history of ischemic heart disease and other diseases of the circulatory system
CPT/HCPCS: 36415; 36430; 71045; 80048; 80053; 82272; 82948; 83036; 83605; 83735; 85025; 85027; 85610; 85730; 86885; 86900; 86901; 86920; 87040; 87070; 93005; 93306; 94640; 94760; 97110; 97116; 97162; 97530; 99285; C9113; G0378; J1815; J1940; J7030; P9016

== ENCOUNTER 2018-01-18 14:28 | Inpatient (IN) | payer MEDICARE, OTHER ==
[~2018-01-18] VITALS: Ht 154.9 cm; Wt 151.1 kg
[~2018-01-18 14:28] MED LIST changes: +ASCO500C15 PO; +FERR325T28 PO; +NORepinephrine bitartrate 8 MG in NS 250 ML BAG (32 mcg/ml) IV ONE
[2018-01-18] MEDS ORDERED: normal saline 1000ml 1,000 ML IV ONE ×2 (14:45→19:25)
[2018-01-18] MEDS ORDERED: acetaminophen 325mg tablet PO ONE (14:45)
[2018-01-18 15:07] LABS: BASOPHILS % (AUTO) 0 % (0-1); EOSINOPHILS # (AUTO) 0.2 X10'3 (0-0.9); EOSINOPHILS % (AUTO) 1.3 % (0-6); HEMATOCRIT 24.7 % (35.0-45.0); HEMOGLOBIN 7.3 g/dl (12.0-16.0); LYMPHOCYTES # (AUTO) 1.2 X10'3 (1.1-4.8); LYMPHOCYTES % (AUTO) 7.6 % (21-51); MEAN CORPUSCULAR HEMOGLOBIN 20.4 PG (27.0-31.0); MEAN CORPUSCULAR HGB CONC 29.3 % (33.0-36.5); MEAN CORPUSCULAR VOLUME 69.6 FL (78-98); MEAN PLATELET VOLUME 7.8 FL (7.4-10.4); MONOCYTES # (AUTO) 1.2 X10'3 (0-0.9); MONOCYTES % (AUTO) 7.5 % (2-12); NEUTROPHILS # (AUTO) 12.8 X10'3 (1.8-7.7); NEUTROPHILS % (AUTO) 83.6 % (42-75); PLATELET COUNT 175 X10'3 (140-440); RED BLOOD COUNT 3.55 X10'6 (4.20-5.60); RED CELL DISTRIBUTION WIDTH 31.1 % (11.5-14.5); WHITE BLOOD COUNT 15.4 X10'3 (4.5-11.0)
[2018-01-18] MEDS ORDERED: levoFLOXACIN-Levaquin 750MG/D5 150 ML IV STA (15:08)
[2018-01-18] MEDS ORDERED: acetaminophen 1,000mg/100ml IV 100 ML IV ONE (15:15)
[2018-01-18 15:22] LABS: ALANINE AMINOTRANSFERASE 12 U/L (12-78); ALBUMIN 2.6 G/DL (3.4-5.0); ALBUMIN/GLOBULIN RATIO 0.6 (1.1-1.5); ALKALINE PHOSPHATASE 73 IU/L (46-116); ANION GAP 9 (8-16); ANISOCYTOSIS 3+; ASPARTATE AMINO TRANSFERASE 16 U/L (10-37); BILIRUBIN,TOTAL 0.8 MG/DL (0.1-1.0); BLOOD UREA NITROGEN 37 MG/DL (7-18); BUN/CREATININE RATIO 11.8 (6.6-38.0); CALCIUM 8.1 MG/DL (8.5-10.1); CHLORIDE 99 MMOL/L (99-107); CREATININE 3.14 MG/DL (0.40-0.90); GLUCOSE 339 MG/DL (70-104); HYPOCHROMASIA 1+; MICROCYTOSIS 2+; PLATELET ESTIMATE NORMAL; POTASSIUM 4.2 MMOL/L (3.5-5.1); SODIUM 137 MMOL/L (135-145); TOTAL CARBON DIOXIDE 29.5 MMOL/L (24-32); TOTAL PROTEIN 6.9 G/DL (6.4-8.2); eGFR 15 ML/MIN
[2018-01-18 15:30] LABS: ABG BASE EXCESS 3.2 mmol/L (-2.0-3.0); ABG HCO3 28.5 mmol/L (22.0-26.0); ABG OXYGEN SATURATION 89.1 % (95-98); ALLEN'S TEST Positive; FCOHb 2.1 % (0.5-1.5); FLOW 1 L/min; FMetHb 0.1 % (0.3-1.12); FO2Hb 87.1 % (94-100); TOTAL HEMOGLOBIN 8.2 G/dl (12.0-16.0)
[2018-01-18 15:43] LABS: INR 1.3 INR; PARTIAL THROMBOPLASTIN TIME 31 SECONDS (22-32); PROTHROMBIN TIME 13.4 SECONDS (9.0-12.0)
[2018-01-18] MEDS ORDERED: furosemide 10 MG/1 ML 10ml inj IV ONE (16:05)
[2018-01-18 16:56] LABS: CLARITY,URINE TURBID (Clear); COLOR,URINE YELLOW (Yellow); GLUCOSE, URINE NEGATIVE (Neg); KETONES,URINE NEGATIVE (Neg); LEUKOCYTE ESTERASE ,URINE LARGE (Neg); NITRITES, URINE NEGATIVE (Neg); OCCULT BLOOD,URINE LARGE (Neg); PROTEIN,URINE 100 mg/dl (Neg); UROBILINOGEN,URINE 0.2 E.U/dL (0.2-1.0)
[2018-01-18 16:57] LABS: UA COLLECTION TYPE STRAIGHT CATH
[2018-01-18 17:06] LABS: BACTERIA,URINE 3+ /HPF (Neg); MUCUS STRANDS NONE SEEN /LPF (Neg); RBC,URINE 0-2 /HPF (0-2); SQUAMOUS EPITHELIAL CELL,UR NONE SEEN /LPF (FEW); WBC,URINE TNTC /HPF (0-4)
[2018-01-18 17:10] LABS: URINE AMPHETAMINE SCREEN NEGATIVE (Neg); URINE BARBITUATE SCREEN NEGATIVE (Neg); URINE BENZODIAZEPINES SCREEN NEGATIVE (Neg); URINE CANNABINOID SCREEN NEGATIVE (Neg); URINE COCAINE SCREEN NEGATIVE (Neg); URINE METHADONE SCREEN NEGATIVE (Neg); URINE OPIATE SCREEN NEGATIVE (Neg); URINE PHENCYCLIDINE SCREEN NEGATIVE (Neg)
[2018-01-18] MEDS ORDERED: CefTRIAXone 2gm/D5W 50ml 50 ML IV ONE (17:10)
[2018-01-18] MEDS: NORepinephrine 8mg/ 250ml NS 250 ML IV SCH ×2 (17:10→17:11)
[2018-01-18] MEDS: normal saline 1000ml 1,000 ML IV SCH (18:12)
[2018-01-18] MEDS ORDERED: bisacodyl 10mg suppository rectal RC PRN (18:15)
[2018-01-18] MEDS ORDERED: ipratropium/albuterol 3ml nebule NEB PRN (18:15)
[2018-01-18] MEDS ORDERED: magnesium 4gm in 100ml NS 100 ML IV PRN (18:15)
[2018-01-18] MEDS ORDERED: Neutra Phos packet PO PRN (18:15)
[2018-01-18] MEDS ORDERED: sodium phosphate inj. 30 MMOL in dextrose 5%-water 250 ML IV PRN (18:15)
[2018-01-18] MEDS ORDERED: ondansetron/PF 4mg/2ml inj IV PRN (18:15)
[2018-01-18] MEDS ORDERED: magnesium Cl slow-release 64mg tablet PO PRN (18:15)
[2018-01-18] MEDS ORDERED: potassium Cl 20 mEq SR tablet PO PRN (18:15)
[2018-01-18] MEDS ORDERED: sodium phosphate inj. 15 MMOL in dextrose 5%-water 150 ML IV PRN (18:15)
[2018-01-18] MEDS ORDERED: magnesium hydroxide 30ml (MOM) UD suspension PO PRN (18:15)
[2018-01-18] MEDS ORDERED: insulin regular, human 10 units/0.1 ml syringe IV ONE (18:55)
[2018-01-18] MEDS: heparin, porcine 5000 units/ml vial SQ SCH (20:44)
[2018-01-18] MEDS: acetaminophen 325mg tablet PO PRN (21:18)
[2018-01-18] MEDS: piperacillin-tazo 2.25gm/50ml 50 ML IV SCH (21:18)
[2018-01-18 23:09] LABS: TROPONIN I 0.42 NG/ML (0.0-0.05)
[2018-01-19] VITALS (14 sets, daily range): BP systolic 90–121; BP diastolic 34–53
[2018-01-19] MEDS: piperacillin-tazo 2.25gm/50ml 50 ML IV SCH ×3 (02:34→16:24)
[2018-01-19] MEDS ORDERED: LOSA100T15 PO (05:20)
[2018-01-19] MEDS ORDERED: MELA3TAB PO (05:20)
[2018-01-19] MEDS ORDERED: D-MA1POW PO (05:20)
[2018-01-19] MEDS ORDERED: DULO60CA64 PO (05:20)
[2018-01-19] MEDS ORDERED: OMEP40CA37 PO (05:20)
[2018-01-19] MEDS ORDERED: METF500T PO (05:20)
[2018-01-19] MEDS: normal saline 1000ml 1,000 ML IV SCH (07:32)
[2018-01-19] MEDS: lactobacillus rhamnosus 10,000 MMU CELLS/CAPSULE PO SCH ×2 (08:00→19:37)
[2018-01-19] MEDS: aspirin 81mg tablet.DR PO SCH (08:00)
[2018-01-19] MEDS: vitamin D (cholecalciferol) 1,000 unit tablet PO SCH (08:00)
[2018-01-19] MEDS: ferrous sulfate 325mg tablet PO SCH ×2 (08:00→19:37)
[2018-01-19] MEDS ORDERED: docusate sod 100mg capsule PO SCH (08:00)
[2018-01-19] MEDS: allopurinol 300 MG tablet PO SCH (08:01)
[2018-01-19] MEDS: ascorbic acid 500mg tablet PO SCH ×2 (08:01→19:37)
[2018-01-19] MEDS: pregabalin 75mg capsule PO SCH ×2 (08:01→19:37)
[2018-01-19] MEDS: pantoprazole 40 MG vial IV SCH (08:02)
[2018-01-19] MEDS: acetaminophen 325mg tablet PO PRN ×2 (08:02→16:24)
[2018-01-19 08:06] LABS: BASOPHILS % (AUTO) 0 % (0-1); EOSINOPHILS # (AUTO) 0.3 X10'3 (0-0.9); EOSINOPHILS % (AUTO) 1.8 % (0-6); HEMATOCRIT 24.8 % (35.0-45.0); HEMOGLOBIN 7.4 g/dl (12.0-16.0); LYMPHOCYTES # (AUTO) 1.2 X10'3 (1.1-4.8); LYMPHOCYTES % (AUTO) 8.2 % (21-51); MEAN CORPUSCULAR HEMOGLOBIN 20.9 PG (27.0-31.0); MEAN CORPUSCULAR HGB CONC 29.7 % (33.0-36.5); MEAN CORPUSCULAR VOLUME 70.4 FL (78-98); MEAN PLATELET VOLUME 9.2 FL (7.4-10.4); MONOCYTES # (AUTO) 1.3 X10'3 (0-0.9); MONOCYTES % (AUTO) 8.6 % (2-12); NEUTROPHILS # (AUTO) 12.1 X10'3 (1.8-7.7); NEUTROPHILS % (AUTO) 81.4 % (42-75); PLATELET COUNT 212 X10'3 (140-440); RED BLOOD COUNT 3.52 X10'6 (4.20-5.60); RED CELL DISTRIBUTION WIDTH 31.5 % (11.5-14.5); WHITE BLOOD COUNT 14.9 X10'3 (4.5-11.0)
[2018-01-19] MEDS: heparin, porcine 5000 units/ml vial SQ SCH ×2 (08:18→19:37)
[2018-01-19 08:23] LABS: ANISOCYTOSIS 3+; HYPOCHROMASIA 2+; PLATELET ESTIMATE NORMAL; POLYCHROMASIA 2+; ROULEAUX 1+; TOTAL CELLS COUNTED 100
[2018-01-19 08:24] LABS: ALANINE AMINOTRANSFERASE 11 U/L (12-78); ALBUMIN 2.5 G/DL (3.4-5.0); ALBUMIN/GLOBULIN RATIO 0.6 (1.1-1.5); ALKALINE PHOSPHATASE 73 IU/L (46-116); ANION GAP 9 (8-16); ASPARTATE AMINO TRANSFERASE 19 U/L (10-37); BILIRUBIN,TOTAL 0.6 MG/DL (0.1-1.0); BLOOD UREA NITROGEN 43 MG/DL (7-18); BUN/CREATININE RATIO 12.3 (6.6-38.0); CALCIUM 7.7 MG/DL (8.5-10.1); CHLORIDE 99 MMOL/L (99-107); GLUCOSE 260 MG/DL (70-104); MAGNESIUM 1.2 MG/DL (1.5-2.4); PHOSPHORUS 3.2 MG/DL (2.3-4.5); POTASSIUM 4.1 MMOL/L (3.5-5.1); SODIUM 135 MMOL/L (135-145); TOTAL CARBON DIOXIDE 26.9 MMOL/L (24-32); TOTAL PROTEIN 6.8 G/DL (6.4-8.2); eGFR 13 ML/MIN
[2018-01-19] MEDS: tolterodine 2mg SR capsule (24hr) PO SCH (08:52)
[2018-01-19] MEDS: sertraline 50mg tablet PO SCH (08:53)
[2018-01-19] MEDS ORDERED: docusate sodium 100mg/10ml UD cup PO SCH (08:54)
[2018-01-19] MEDS ORDERED: glucagon, human recombinant 1mg kit SUBCUT PRN (09:10)
[2018-01-19] MEDS ORDERED: MESSAGE TO PHARMACY PO ONE (09:10)
[2018-01-19] MEDS ORDERED: dextrose 50%-water 50ml dispensing syringe IV PRN ×2 (09:10)
[2018-01-19] MEDS ORDERED: dextrose ORAL solution 15 GM/59 ML bottle PO PRN ×2 (09:10)
[2018-01-19] MEDS ORDERED: gabapentin 300mg capsule PO SCH (09:20)
[2018-01-19] MEDS: gabapentin 300mg capsule PO SCH ×2 (10:45→19:37)
[2018-01-19 11:54] LABS: HEMOGLOBIN A1C 7.5 % (4.5-6.2)
[2018-01-19 11:56] LABS: TROPONIN I 0.21 NG/ML (0.0-0.05)
[2018-01-19] MEDS ORDERED: normal saline 1000ml 1,000 ML IV ONE (13:15)
[2018-01-19] MEDS ORDERED: magnesium Cl slow-release 64mg tablet PO PRN (13:35)
[2018-01-19] MEDS ORDERED: potassium Cl 20 mEq SR tablet PO PRN ×2 (13:35)
[2018-01-19] MEDS: hydrocortisone sod succ/PF 100mg/2ml inj. IV SCH ×2 (16:24→19:37)
[2018-01-19 17:36] LABS: VANCOMYCIN,RANDOM 11.8 UG/ML
[2018-01-19] MEDS: DOPamine 400mg/D5W 250ml 250 ML IV SCH (18:40)
[2018-01-19] MEDS ORDERED: vancomycin/NS 1 GM ADD-VANTAGE 250 ML IV SCH (19:00)
[2018-01-19] MEDS: insulin Lispro (HumaLOG) vial - multi-dose SQ SCH ×2 (19:10→21:37)
[2018-01-19] MEDS: cefepime 1GM/NS ADD-VANTAGE 100 ML IV SCH (19:24)
[2018-01-19] MEDS: insulin glargine (Lantus) pen - multi-dose SQ SCH (21:36)
[2018-01-20] VITALS (24 sets, daily range): BP systolic 99–145; BP diastolic 39–70
[2018-01-20] MEDS ORDERED: cefepime 1GM/NS ADD-VANTAGE 100 ML IV SCH
[2018-01-20] MEDS: normal saline 1000ml 1,000 ML IV SCH ×3 (00:17→23:25)
[2018-01-20] MEDS: DOPamine 400mg/D5W 250ml 250 ML IV SCH (01:58)
[2018-01-20] MEDS: cefepime 1GM/NS ADD-VANTAGE 100 ML IV SCH ×3 (02:16→18:04)
[2018-01-20] MEDS: hydrocortisone sod succ/PF 100mg/2ml inj. IV SCH ×4 (02:16→19:47)
[2018-01-20 05:04] LABS: BASOPHILS % (AUTO) 0 % (0-1); EOSINOPHILS # (AUTO) 0.1 X10'3 (0-0.9); EOSINOPHILS % (AUTO) 1.3 % (0-6); HEMATOCRIT 28.3 % (35.0-45.0); HEMOGLOBIN 8.6 g/dl (12.0-16.0); LYMPHOCYTES # (AUTO) 0.6 X10'3 (1.1-4.8); LYMPHOCYTES % (AUTO) 6.2 % (21-51); MEAN CORPUSCULAR HEMOGLOBIN 21.9 PG (27.0-31.0); MEAN CORPUSCULAR HGB CONC 30.3 % (33.0-36.5); MEAN CORPUSCULAR VOLUME 72.2 FL (78-98); MEAN PLATELET VOLUME 9.4 FL (7.4-10.4); MONOCYTES # (AUTO) 0.2 X10'3 (0-0.9); MONOCYTES % (AUTO) 2.7 % (2-12); NEUTROPHILS # (AUTO) 8.4 X10'3 (1.8-7.7); NEUTROPHILS % (AUTO) 89.8 % (42-75); PLATELET COUNT 185 X10'3 (140-440); RED BLOOD COUNT 3.92 X10'6 (4.20-5.60); RED CELL DISTRIBUTION WIDTH 30.4 % (11.5-14.5); WHITE BLOOD COUNT 9.3 X10'3 (4.5-11.0)
[2018-01-20 05:52] LABS: ALANINE AMINOTRANSFERASE 13 U/L (12-78); ALBUMIN 2.3 G/DL (3.4-5.0); ALBUMIN/GLOBULIN RATIO 0.5 (1.1-1.5); ALKALINE PHOSPHATASE 68 IU/L (46-116); ANION GAP 12 (8-16); ASPARTATE AMINO TRANSFERASE 22 U/L (10-37); BILIRUBIN,TOTAL 0.5 MG/DL (0.1-1.0); BLOOD UREA NITROGEN 50 MG/DL (7-18); CALCIUM 7.7 MG/DL (8.5-10.1); CHLORIDE 100 MMOL/L (99-107); CREATININE 2.94 MG/DL (0.40-0.90); GLUCOSE 388 MG/DL (70-104); MAGNESIUM 1.5 MG/DL (1.5-2.4); PHOSPHORUS 3.7 MG/DL (2.3-4.5); POTASSIUM 4.1 MMOL/L (3.5-5.1); SODIUM 137 MMOL/L (135-145); TOTAL CARBON DIOXIDE 25.4 MMOL/L (24-32); TOTAL PROTEIN 6.7 G/DL (6.4-8.2); eGFR 16 ML/MIN
[2018-01-20] MEDS: pantoprazole 40 MG vial IV SCH (08:38)
[2018-01-20] MEDS: heparin, porcine 5000 units/ml vial SQ SCH ×2 (08:39→19:47)
[2018-01-20] MEDS: sertraline 50mg tablet PO SCH (08:40)
[2018-01-20] MEDS: pregabalin 75mg capsule PO SCH ×2 (08:40→19:48)
[2018-01-20] MEDS: lactobacillus rhamnosus 10,000 MMU CELLS/CAPSULE PO SCH ×2 (08:40→19:48)
[2018-01-20] MEDS: ascorbic acid 500mg tablet PO SCH ×2 (08:41→19:48)
[2018-01-20] MEDS: tolterodine 2mg SR capsule (24hr) PO SCH (08:41)
[2018-01-20] MEDS: vitamin D (cholecalciferol) 1,000 unit tablet PO SCH (08:41)
[2018-01-20] MEDS: aspirin 81mg tablet.DR PO SCH (08:41)
[2018-01-20] MEDS: ferrous sulfate 325mg tablet PO SCH ×2 (08:41→19:47)
[2018-01-20] MEDS: allopurinol 300 MG tablet PO SCH (08:41)
[2018-01-20] MEDS: gabapentin 300mg capsule PO SCH ×2 (08:45→19:53)
[2018-01-20] MEDS: insulin Lispro (HumaLOG) vial - multi-dose SQ SCH ×4 (09:06→21:50)
[2018-01-20] MEDS ORDERED: LIDOcaine Viscous 15ml cup MM PRN (09:30)
[2018-01-20 11:18] LABS: OCCULT BLOOD STOOL NEGATIVE (Neg)
[2018-01-20] MEDS: piperacillin-tazo 2.25gm/50ml 50 ML IV SCH (16:45)
[2018-01-20] MEDS: magnesium oxide 400mg tablet PO SCH ×2 (18:04→23:26)
[2018-01-20] MEDS: insulin glargine (Lantus) pen - multi-dose SQ SCH (21:52)
[2018-01-21] VITALS (19 sets, daily range): BP systolic 84–149; BP diastolic 48–76
[2018-01-21] MEDS: piperacillin-tazo 2.25gm/50ml 50 ML IV SCH ×2 (00:59→09:19)
[2018-01-21] MEDS: acetaminophen 325mg tablet PO PRN ×2 (01:04→22:21)
[2018-01-21] MEDS: cefepime 1GM/NS ADD-VANTAGE 100 ML IV SCH ×3 (02:30→17:44)
[2018-01-21] MEDS: hydrocortisone sod succ/PF 100mg/2ml inj. IV SCH ×4 (02:40→22:18)
[2018-01-21 05:09] LABS: BASOPHILS % (AUTO) 0 % (0-1); EOSINOPHILS # (AUTO) 0.1 X10'3 (0-0.9); EOSINOPHILS % (AUTO) 1.6 % (0-6); HEMATOCRIT 26.4 % (35.0-45.0); HEMOGLOBIN 7.9 g/dl (12.0-16.0); LYMPHOCYTES # (AUTO) 0.6 X10'3 (1.1-4.8); LYMPHOCYTES % (AUTO) 7.3 % (21-51); MEAN CORPUSCULAR HEMOGLOBIN 21.8 PG (27.0-31.0); MEAN CORPUSCULAR HGB CONC 30.1 % (33.0-36.5); MEAN CORPUSCULAR VOLUME 72.2 FL (78-98); MEAN PLATELET VOLUME 8.9 FL (7.4-10.4); MONOCYTES # (AUTO) 0.3 X10'3 (0-0.9); MONOCYTES % (AUTO) 3.2 % (2-12); NEUTROPHILS # (AUTO) 7.5 X10'3 (1.8-7.7); NEUTROPHILS % (AUTO) 87.9 % (42-75); PLATELET COUNT 221 X10'3 (140-440); RED BLOOD COUNT 3.65 X10'6 (4.20-5.60); RED CELL DISTRIBUTION WIDTH 30.9 % (11.5-14.5); WHITE BLOOD COUNT 8.6 X10'3 (4.5-11.0)
[2018-01-21 05:27] LABS: ALANINE AMINOTRANSFERASE 26 U/L (12-78); ALBUMIN 2.3 G/DL (3.4-5.0); ALBUMIN/GLOBULIN RATIO 0.6 (1.1-1.5); ALKALINE PHOSPHATASE 58 IU/L (46-116); ANION GAP 12 (8-16); ASPARTATE AMINO TRANSFERASE 43 U/L (10-37); BILIRUBIN,TOTAL 0.4 MG/DL (0.1-1.0); BLOOD UREA NITROGEN 49 MG/DL (7-18); BUN/CREATININE RATIO 23.9 (6.6-38.0); CHLORIDE 104 MMOL/L (99-107); CREATININE 2.05 MG/DL (0.40-0.90); GLUCOSE 264 MG/DL (70-104); MAGNESIUM 1.7 MG/DL (1.5-2.4); PHOSPHORUS 2.6 MG/DL (2.3-4.5); POTASSIUM 3.4 MMOL/L (3.5-5.1); SODIUM 140 MMOL/L (135-145); TOTAL PROTEIN 6.3 G/DL (6.4-8.2); eGFR 24 ML/MIN
[2018-01-21] MEDS ORDERED: pantoprazole 40mg Tablet.DR PO SCH (07:30)
[2018-01-21] MEDS: magnesium oxide 400mg tablet PO SCH (08:18)
[2018-01-21] MEDS: docusate sod 100mg capsule PO SCH (08:19)
[2018-01-21] MEDS: vitamin D (cholecalciferol) 1,000 unit tablet PO SCH (08:19)
[2018-01-21] MEDS: tolterodine 2mg SR capsule (24hr) PO SCH (08:19)
[2018-01-21] MEDS: sertraline 50mg tablet PO SCH (08:20)
[2018-01-21] MEDS: gabapentin 300mg capsule PO SCH ×2 (08:20→22:22)
[2018-01-21] MEDS: ferrous sulfate 325mg tablet PO SCH ×2 (08:20→22:22)
[2018-01-21] MEDS: lactobacillus rhamnosus 10,000 MMU CELLS/CAPSULE PO SCH ×2 (08:20→22:22)
[2018-01-21] MEDS: ascorbic acid 500mg tablet PO SCH (08:20)
[2018-01-21] MEDS: pregabalin 75mg capsule PO SCH ×2 (08:21→22:22)
[2018-01-21] MEDS: aspirin 81mg tablet.DR PO SCH (08:21)
[2018-01-21] MEDS: heparin, porcine 5000 units/ml vial SQ SCH ×2 (08:22→22:19)
[2018-01-21] MEDS: DOPamine 400mg/D5W 250ml 250 ML IV SCH (08:29)
[2018-01-21] MEDS: allopurinol 300 MG tablet PO SCH (08:39)
[2018-01-21] MEDS: normal saline 1000ml 1,000 ML IV SCH (08:40)
[2018-01-21] MEDS: nystatin 15 GM powder TP SCH ×3 (08:42→21:00)
[2018-01-21] MEDS: insulin Lispro (HumaLOG) vial - multi-dose SQ SCH ×3 (10:03→22:14)
[2018-01-21] MEDS: potassium Cl 20 mEq SR tablet PO PRN (15:42)
[2018-01-21 16:53] LABS: CLARITY,URINE CLOUDY (Clear); COLOR,URINE YELLOW (Yellow); GLUCOSE, URINE NEGATIVE (Neg); KETONES,URINE NEGATIVE (Neg); LEUKOCYTE ESTERASE ,URINE MODERATE (Neg); NITRITES, URINE NEGATIVE (Neg); OCCULT BLOOD,URINE MODERATE (Neg); PROTEIN,URINE 30 mg/dl (Neg); UROBILINOGEN,URINE 0.2 E.U/dL (0.2-1.0)
[2018-01-21 16:54] LABS: UA COLLECTION TYPE STRAIGHT CATH
[2018-01-21 17:02] LABS: SODIUM,URINE RANDOM < 15 MEQ/L; TOTAL PROTEIN,URINE RANDOM 96.7 MG/DL
[2018-01-21 17:09] LABS: COARSE GRANULAR CAST 0-3 /LPF (NEGATIVE); HYALINE CASTS 0-3 /LPF (NEGATIVE); SQUAMOUS EPITHELIAL CELL,UR MODERATE /LPF (FEW); WBC,URINE 50-100 /HPF (0-4)
[2018-01-21 17:10] LABS: BACTERIA,URINE FEW /HPF (Neg); YEAST MANY /HPF (NEGATIVE)
[2018-01-21 17:11] LABS: RBC,URINE 0-2 /HPF (0-2)
[2018-01-21 18:13] LABS: UA EOSINOPHILS NO EOS /HPF
[2018-01-21] MEDS: insulin glargine (Lantus) pen - multi-dose SQ SCH (22:17)
[2018-01-22] MEDS: cefepime 1GM/NS ADD-VANTAGE 100 ML IV SCH ×3 (00:56→17:39)
[2018-01-22] MEDS: hydrocortisone sod succ/PF 100mg/2ml inj. IV SCH ×4 (00:57→20:11)
[2018-01-22] MEDS: potassium Cl 20 mEq SR tablet PO PRN (00:57)
[2018-01-22 03:00] VITALS: BP 154/74
[2018-01-22 06:00] VITALS: BP 147/58
[2018-01-22 06:09] LABS: ALANINE AMINOTRANSFERASE 27 U/L (12-78); ALBUMIN 2.4 G/DL (3.4-5.0); ALBUMIN/GLOBULIN RATIO 0.6 (1.1-1.5); ALKALINE PHOSPHATASE 55 IU/L (46-116); ANION GAP 11 (8-16); ASPARTATE AMINO TRANSFERASE 39 U/L (10-37); BILIRUBIN,TOTAL 0.3 MG/DL (0.1-1.0); BLOOD UREA NITROGEN 46 MG/DL (7-18); BUN/CREATININE RATIO 27.2 (6.6-38.0); CALCIUM 8.5 MG/DL (8.5-10.1); CHLORIDE 106 MMOL/L (99-107); CREATININE 1.69 MG/DL (0.40-0.90); GLUCOSE 245 MG/DL (70-104); MAGNESIUM 1.8 MG/DL (1.5-2.4); PHOSPHORUS 2.5 MG/DL (2.3-4.5); POTASSIUM 3.7 MMOL/L (3.5-5.1); SODIUM 143 MMOL/L (135-145); TOTAL CARBON DIOXIDE 25.8 MMOL/L (24-32); TOTAL PROTEIN 6.5 G/DL (6.4-8.2); eGFR 30 ML/MIN
[2018-01-22 06:23] LABS: BASOPHILS % (AUTO) 0.1 % (0-1); EOSINOPHILS # (AUTO) 0.1 X10'3 (0-0.9); EOSINOPHILS % (AUTO) 0.9 % (0-6); HEMOGLOBIN 8.4 g/dl (12.0-16.0); LYMPHOCYTES # (AUTO) 0.7 X10'3 (1.1-4.8); LYMPHOCYTES % (AUTO) 10.9 % (21-51); MEAN CORPUSCULAR HEMOGLOBIN 21.8 PG (27.0-31.0); MEAN CORPUSCULAR VOLUME 72.7 FL (78-98); MEAN PLATELET VOLUME 8.9 FL (7.4-10.4); MONOCYTES # (AUTO) 0.2 X10'3 (0-0.9); MONOCYTES % (AUTO) 3.3 % (2-12); NEUTROPHILS # (AUTO) 5.8 X10'3 (1.8-7.7); NEUTROPHILS % (AUTO) 84.8 % (42-75); PLATELET COUNT 226 X10'3 (140-440); RED BLOOD COUNT 3.85 X10'6 (4.20-5.60); RED CELL DISTRIBUTION WIDTH 30.3 % (11.5-14.5); WHITE BLOOD COUNT 6.8 X10'3 (4.5-11.0)
[2018-01-22 06:25] LABS: ANISOCYTOSIS 3+; PLATELET ESTIMATE NORMAL
[2018-01-22 06:26] LABS: HYPOCHROMASIA 1+; TARGET CELLS FEW
[2018-01-22] MEDS: docusate sod 100mg capsule PO SCH (08:00)
[2018-01-22] MEDS: ascorbic acid 500mg tablet PO SCH (10:06)
[2018-01-22] MEDS: sertraline 50mg tablet PO SCH (10:06)
[2018-01-22] MEDS: aspirin 81mg tablet.DR PO SCH (10:07)
[2018-01-22] MEDS: vitamin D (cholecalciferol) 1,000 unit tablet PO SCH (10:07)
[2018-01-22] MEDS: gabapentin 300mg capsule PO SCH (10:07)
[2018-01-22] MEDS: lactobacillus rhamnosus 10,000 MMU CELLS/CAPSULE PO SCH ×2 (10:07→20:11)
[2018-01-22] MEDS: pregabalin 75mg capsule PO SCH ×2 (10:07→20:11)
[2018-01-22] MEDS: ferrous sulfate 325mg tablet PO SCH ×2 (10:07→20:11)
[2018-01-22] MEDS: nystatin 15 GM powder TP SCH ×3 (10:08→21:32)
[2018-01-22] MEDS: allopurinol 100mg tablet PO SCH (10:08)
[2018-01-22] MEDS: heparin, porcine 5000 units/ml vial SQ SCH ×2 (10:08→20:10)
[2018-01-22] MEDS: tolterodine 2mg SR capsule (24hr) PO SCH (10:14)
[2018-01-22] MEDS: insulin Lispro (HumaLOG) vial - multi-dose SQ SCH ×3 (10:55→21:32)
[2018-01-22 11:00] VITALS: BP 163/73
[2018-01-22 15:00] VITALS: BP 146/63
[2018-01-22 19:00] VITALS: BP 146/58
[2018-01-22] MEDS: insulin glargine (Lantus) pen - multi-dose SQ SCH (21:31)
[2018-01-22] MEDS: acetaminophen 325mg tablet PO PRN (21:34)
[2018-01-22 23:00] VITALS: BP 146/64
[2018-01-23] VITALS (7 sets, daily range): BP systolic 140–170; BP diastolic 59–82
[2018-01-23] MEDS: hydrocortisone sod succ/PF 100mg/2ml inj. IV SCH ×4 (01:21→21:13)
[2018-01-23] MEDS: cefepime 1GM/NS ADD-VANTAGE 100 ML IV SCH ×3 (01:23→17:56)
[2018-01-23 06:09] LABS: BASOPHILS % (AUTO) 0.1 % (0-1); EOSINOPHILS # (AUTO) 0.1 X10'3 (0-0.9); EOSINOPHILS % (AUTO) 1.6 % (0-6); HEMATOCRIT 27.6 % (35.0-45.0); HEMOGLOBIN 8.3 g/dl (12.0-16.0); LYMPHOCYTES # (AUTO) 0.9 X10'3 (1.1-4.8); LYMPHOCYTES % (AUTO) 12.7 % (21-51); MEAN CORPUSCULAR HEMOGLOBIN 21.6 PG (27.0-31.0); MEAN CORPUSCULAR HGB CONC 30.2 % (33.0-36.5); MEAN CORPUSCULAR VOLUME 71.7 FL (78-98); MEAN PLATELET VOLUME 8.7 FL (7.4-10.4); MONOCYTES # (AUTO) 0.3 X10'3 (0-0.9); MONOCYTES % (AUTO) 4.1 % (2-12); NEUTROPHILS # (AUTO) 5.7 X10'3 (1.8-7.7); NEUTROPHILS % (AUTO) 81.5 % (42-75); PLATELET COUNT 245 X10'3 (140-440); RED BLOOD COUNT 3.85 X10'6 (4.20-5.60)
[2018-01-23 06:49] LABS: ALANINE AMINOTRANSFERASE 26 U/L (12-78); ALBUMIN 2.4 G/DL (3.4-5.0); ALBUMIN/GLOBULIN RATIO 0.6 (1.1-1.5); ALKALINE PHOSPHATASE 61 IU/L (46-116); ANION GAP 10 (8-16); ASPARTATE AMINO TRANSFERASE 31 U/L (10-37); BILIRUBIN,TOTAL 0.4 MG/DL (0.1-1.0); BLOOD UREA NITROGEN 41 MG/DL (7-18); BUN/CREATININE RATIO 26.8 (6.6-38.0); CALCIUM 8.6 MG/DL (8.5-10.1); CHLORIDE 107 MMOL/L (99-107); CREATININE 1.53 MG/DL (0.40-0.90); GLUCOSE 235 MG/DL (70-104); MAGNESIUM 1.7 MG/DL (1.5-2.4); PHOSPHORUS 2.6 MG/DL (2.3-4.5); POTASSIUM 3.5 MMOL/L (3.5-5.1); SODIUM 142 MMOL/L (135-145); TOTAL CARBON DIOXIDE 25.1 MMOL/L (24-32); TOTAL PROTEIN 6.5 G/DL (6.4-8.2); eGFR 34 ML/MIN
[2018-01-23 07:26] LABS: ANISOCYTOSIS 3+; HYPOCHROMASIA 1+; PLATELET ESTIMATE NORMAL
[2018-01-23] MEDS: lactobacillus rhamnosus 10,000 MMU CELLS/CAPSULE PO SCH ×2 (08:25→21:14)
[2018-01-23] MEDS: gabapentin 300mg capsule PO SCH (08:26)
[2018-01-23] MEDS: allopurinol 100mg tablet PO SCH (08:26)
[2018-01-23] MEDS: ascorbic acid 500mg tablet PO SCH (08:27)
[2018-01-23] MEDS: sertraline 50mg tablet PO SCH (08:28)
[2018-01-23] MEDS: docusate sod 100mg capsule PO SCH (08:28)
[2018-01-23] MEDS: vitamin D (cholecalciferol) 1,000 unit tablet PO SCH (08:29)
[2018-01-23] MEDS: pregabalin 75mg capsule PO SCH ×2 (08:29→21:14)
[2018-01-23] MEDS: aspirin 81mg tablet.DR PO SCH (08:29)
[2018-01-23] MEDS: ferrous sulfate 325mg tablet PO SCH ×2 (08:30→21:13)
[2018-01-23] MEDS: nystatin 15 GM powder TP SCH ×3 (08:31→21:14)
[2018-01-23] MEDS: heparin, porcine 5000 units/ml vial SQ SCH ×2 (08:31→21:14)
[2018-01-23] MEDS: tolterodine 2mg SR capsule (24hr) PO SCH (08:31)
[2018-01-23] MEDS: insulin Lispro (HumaLOG) vial - multi-dose SQ SCH ×3 (08:55→21:35)
[2018-01-23] MEDS ORDERED: VANCOMYCIN LEVEL IV ONE (18:30)
[2018-01-23] MEDS: insulin glargine (Lantus) pen - multi-dose SQ SCH (21:24)
[2018-01-24] MEDS: hydrocortisone sod succ/PF 100mg/2ml inj. IV SCH ×4 (02:05→19:28)
[2018-01-24] MEDS: cefepime 1GM/NS ADD-VANTAGE 100 ML IV SCH ×3 (02:05→17:14)
[2018-01-24 03:00] VITALS: BP 161/73
[2018-01-24 05:52] LABS: BASOPHILS % (AUTO) 0.2 % (0-1); EOSINOPHILS # (AUTO) 0.1 X10'3 (0-0.9); EOSINOPHILS % (AUTO) 1.3 % (0-6); HEMATOCRIT 28.9 % (35.0-45.0); HEMOGLOBIN 8.7 g/dl (12.0-16.0); LYMPHOCYTES # (AUTO) 0.9 X10'3 (1.1-4.8); LYMPHOCYTES % (AUTO) 10.5 % (21-51); MEAN CORPUSCULAR HEMOGLOBIN 21.7 PG (27.0-31.0); MEAN CORPUSCULAR HGB CONC 30.1 % (33.0-36.5); MEAN PLATELET VOLUME 8.8 FL (7.4-10.4); MONOCYTES # (AUTO) 0.2 X10'3 (0-0.9); MONOCYTES % (AUTO) 2.7 % (2-12); NEUTROPHILS # (AUTO) 7.7 X10'3 (1.8-7.7); NEUTROPHILS % (AUTO) 85.3 % (42-75); PLATELET COUNT 268 X10'3 (140-440); RED BLOOD COUNT 4.02 X10'6 (4.20-5.60); RED CELL DISTRIBUTION WIDTH 30.3 % (11.5-14.5)
[2018-01-24 06:00] VITALS: BP 144/63
[2018-01-24 06:08] LABS: ALANINE AMINOTRANSFERASE 26 U/L (12-78); ALBUMIN 2.5 G/DL (3.4-5.0); ALBUMIN/GLOBULIN RATIO 0.6 (1.1-1.5); ALKALINE PHOSPHATASE 62 IU/L (46-116); ANION GAP 10 (8-16); ASPARTATE AMINO TRANSFERASE 34 U/L (10-37); BILIRUBIN,TOTAL 0.4 MG/DL (0.1-1.0); BLOOD UREA NITROGEN 37 MG/DL (7-18); BUN/CREATININE RATIO 26.4 (6.6-38.0); CALCIUM 8.6 MG/DL (8.5-10.1); CHLORIDE 107 MMOL/L (99-107); GLUCOSE 271 MG/DL (70-104); MAGNESIUM 1.6 MG/DL (1.5-2.4); POTASSIUM 3.4 MMOL/L (3.5-5.1); SODIUM 142 MMOL/L (135-145); TOTAL CARBON DIOXIDE 24.7 MMOL/L (24-32); TOTAL PROTEIN 6.5 G/DL (6.4-8.2); eGFR 37 ML/MIN
[2018-01-24 06:25] LABS: ANISOCYTOSIS 3+; HYPOCHROMASIA 1+; PLATELET ESTIMATE NORMAL
[2018-01-24 06:26] LABS: ELLIPTOCYTES FEW
[2018-01-24] MEDS: gabapentin 300mg capsule PO SCH (08:28)
[2018-01-24] MEDS: sertraline 50mg tablet PO SCH (08:28)
[2018-01-24] MEDS: pregabalin 75mg capsule PO SCH ×2 (08:29→19:27)
[2018-01-24] MEDS: tolterodine 2mg SR capsule (24hr) PO SCH (08:29)
[2018-01-24] MEDS: allopurinol 100mg tablet PO SCH (08:29)
[2018-01-24] MEDS: lactobacillus rhamnosus 10,000 MMU CELLS/CAPSULE PO SCH ×2 (08:29→19:27)
[2018-01-24] MEDS: vitamin D (cholecalciferol) 1,000 unit tablet PO SCH (08:29)
[2018-01-24] MEDS: ascorbic acid 500mg tablet PO SCH (08:29)
[2018-01-24] MEDS: ferrous sulfate 325mg tablet PO SCH ×2 (08:29→19:27)
[2018-01-24] MEDS: docusate sod 100mg capsule PO SCH (08:29)
[2018-01-24] MEDS: aspirin 81mg tablet.DR PO SCH (08:29)
[2018-01-24] MEDS: heparin, porcine 5000 units/ml vial SQ SCH ×2 (08:30→19:36)
[2018-01-24] MEDS: nystatin 15 GM powder TP SCH ×3 (08:30→21:12)
[2018-01-24] MEDS: insulin Lispro (HumaLOG) vial - multi-dose SQ SCH ×4 (08:33→21:24)
[2018-01-24] MEDS: potassium Cl 20 mEq SR tablet PO PRN ×2 (08:35→14:26)
[2018-01-24 15:00] VITALS: BP 122/79
[2018-01-24 19:00] VITALS: BP 118/64
[2018-01-24] MEDS: insulin glargine (Lantus) pen - multi-dose SQ SCH (21:27)
[2018-01-24 23:00] VITALS: BP 144/76
[2018-01-25] MEDS: hydrocortisone sod succ/PF 100mg/2ml inj. IV SCH ×3 (01:59→13:16)
[2018-01-25] MEDS: cefepime 1GM/NS ADD-VANTAGE 100 ML IV SCH ×2 (01:59→13:15)
[2018-01-25 03:00] VITALS: BP 136/53
[2018-01-25 06:00] VITALS: BP 136/66
[2018-01-25 07:00] LABS: BASOPHILS % (AUTO) 0.2 % (0-1); EOSINOPHILS # (AUTO) 0.1 X10'3 (0-0.9); HEMATOCRIT 29.7 % (35.0-45.0); HEMOGLOBIN 8.9 g/dl (12.0-16.0); LYMPHOCYTES # (AUTO) 1.2 X10'3 (1.1-4.8); LYMPHOCYTES % (AUTO) 12.4 % (21-51); MEAN CORPUSCULAR HEMOGLOBIN 21.9 PG (27.0-31.0); MEAN CORPUSCULAR HGB CONC 30.1 % (33.0-36.5); MEAN CORPUSCULAR VOLUME 72.8 FL (78-98); MEAN PLATELET VOLUME 8.9 FL (7.4-10.4); MONOCYTES # (AUTO) 0.3 X10'3 (0-0.9); MONOCYTES % (AUTO) 2.7 % (2-12); NEUTROPHILS % (AUTO) 83.7 % (42-75); PLATELET COUNT 282 X10'3 (140-440); RED BLOOD COUNT 4.08 X10'6 (4.20-5.60); RED CELL DISTRIBUTION WIDTH 30.5 % (11.5-14.5); WHITE BLOOD COUNT 9.6 X10'3 (4.5-11.0)
[2018-01-25 07:14] LABS: ANISOCYTOSIS 3+; HYPOCHROMASIA 1+; PLATELET ESTIMATE NORMAL; POLYCHROMASIA FEW
[2018-01-25 07:25] LABS: ANION GAP 10 (8-16); BLOOD UREA NITROGEN 34 MG/DL (7-18); BUN/CREATININE RATIO 25.2 (6.6-38.0); CHLORIDE 108 MMOL/L (99-107); CREATININE 1.35 MG/DL (0.40-0.90); GLUCOSE 249 MG/DL (70-104); POTASSIUM 3.5 MMOL/L (3.5-5.1); SODIUM 143 MMOL/L (135-145); TOTAL CARBON DIOXIDE 24.6 MMOL/L (24-32); eGFR 39 ML/MIN
[2018-01-25 07:26] LABS: ALANINE AMINOTRANSFERASE 26 U/L (12-78); ALBUMIN 2.6 G/DL (3.4-5.0); ALBUMIN/GLOBULIN RATIO 0.7 (1.1-1.5); ALKALINE PHOSPHATASE 62 IU/L (46-116); ASPARTATE AMINO TRANSFERASE 30 U/L (10-37); BILIRUBIN,TOTAL 0.5 MG/DL (0.1-1.0); CALCIUM 8.9 MG/DL (8.5-10.1); MAGNESIUM 1.6 MG/DL (1.5-2.4); PHOSPHORUS 2.9 MG/DL (2.3-4.5); TOTAL PROTEIN 6.5 G/DL (6.4-8.2)
[2018-01-25] MEDS: nystatin 15 GM powder TP SCH (08:00)
[2018-01-25] MEDS: ferrous sulfate 325mg tablet PO SCH (08:30)
[2018-01-25] MEDS: vitamin D (cholecalciferol) 1,000 unit tablet PO SCH (08:31)
[2018-01-25] MEDS: lactobacillus rhamnosus 10,000 MMU CELLS/CAPSULE PO SCH (08:32)
[2018-01-25] MEDS: sertraline 50mg tablet PO SCH (08:32)
[2018-01-25] MEDS: docusate sod 100mg capsule PO SCH (08:32)
[2018-01-25] MEDS: allopurinol 100mg tablet PO SCH (08:32)
[2018-01-25] MEDS: pregabalin 75mg capsule PO SCH (08:33)
[2018-01-25] MEDS: gabapentin 300mg capsule PO SCH (08:33)
[2018-01-25] MEDS: ascorbic acid 500mg tablet PO SCH (08:33)
[2018-01-25] MEDS: aspirin 81mg tablet.DR PO SCH (08:33)
[2018-01-25] MEDS: heparin, porcine 5000 units/ml vial SQ SCH (08:36)
[2018-01-25] MEDS: insulin Lispro (HumaLOG) vial - multi-dose SQ SCH ×2 (09:37→13:13)
[2018-01-25] MEDS: tolterodine 2mg SR capsule (24hr) PO SCH (09:40)
[2018-01-25] MEDS: acetaminophen 325mg tablet PO PRN (09:45)
[2018-01-25 11:00] VITALS: BP 176/68
[2018-01-25] MEDS ORDERED: CEFE1FRO IV (14:35)
[2018-01-25] MEDS ORDERED: LANTUS SQ (14:35)
[2018-01-25] MEDS ORDERED: ALLO100T25 PO (14:35)
[2018-01-25] MEDS ORDERED: INSU100V11 SQ (14:35)
[2018-01-25] MEDS ORDERED: VITC500T PO ×2 (14:36→14:37)
[2018-01-25 15:00] VITALS: BP 160/106
== END 2018-01-25 16:25 | DRG 871 ==
LOC: ER 14:28 → ED HOLD 17:10 → CICU 2S 01-19 14:45 → PCU 3S 01-21 16:45
PROVIDERS: ADMIT Student in an Organized Health Care Education/Training Program; ATTEND Internal Medicine Critical Care Medicine
PROC: 02HV33Z Insertion of Infusion Device into Superior Vena Cava, Percutaneous Approach (ICD-10-PCS; 2018-01-18)
PROC: 5A09357 Assistance with Respiratory Ventilation, Less than 24 Consecutive Hours, Continuous Positive Airway Pressure (ICD-10-PCS; principal; 2018-01-19)
PROC: 30233N1 Transfusion of Nonautologous Red Blood Cells into Peripheral Vein, Percutaneous Approach (ICD-10-PCS; 2018-01-19)
PROC: 5A09357 Assistance with Respiratory Ventilation, Less than 24 Consecutive Hours, Continuous Positive Airway Pressure (ICD-10-PCS; 2018-01-20)
PROC: 30233N1 Transfusion of Nonautologous Red Blood Cells into Peripheral Vein, Percutaneous Approach (ICD-10-PCS; 2018-01-20)
PROC: 5A09357 Assistance with Respiratory Ventilation, Less than 24 Consecutive Hours, Continuous Positive Airway Pressure (ICD-10-PCS; 2018-01-21)
PROC: 5A09357 Assistance with Respiratory Ventilation, Less than 24 Consecutive Hours, Continuous Positive Airway Pressure (ICD-10-PCS; 2018-01-22)
PROC: CT131ZZ Planar Nuclear Medicine Imaging of Kidneys, Ureters and Bladder using Technetium 99m (Tc-99m) (ICD-10-PCS; 2018-01-22)
PROC: 5A09357 Assistance with Respiratory Ventilation, Less than 24 Consecutive Hours, Continuous Positive Airway Pressure (ICD-10-PCS; 2018-01-23)
PROC: 5A09357 Assistance with Respiratory Ventilation, Less than 24 Consecutive Hours, Continuous Positive Airway Pressure (ICD-10-PCS; 2018-01-24)
PROC: 5A09357 Assistance with Respiratory Ventilation, Less than 24 Consecutive Hours, Continuous Positive Airway Pressure (ICD-10-PCS; 2018-01-25)
DX: A41.9 Sepsis, unspecified organism (principal); R65.21 Severe sepsis with septic shock; G92 Toxic encephalopathy; J18.9 Pneumonia, unspecified organism; I13.0 Hypertensive heart and chronic kidney disease with heart failure and stage 1 through stage 4 chronic kidney disease, or unspecified chronic kidney disease; J44.0 Chronic obstructive pulmonary disease with (acute) lower respiratory infection; N17.9 Acute kidney failure, unspecified; Z68.44 Body mass index [BMI] 60.0-69.9, adult; N39.0 Urinary tract infection, site not specified; B96.20 Unspecified Escherichia coli [E. coli] as the cause of diseases classified elsewhere; E11.22 Type 2 diabetes mellitus with diabetic chronic kidney disease; F32.9 Major depressive disorder, single episode, unspecified; M54.2 Cervicalgia; M54.9 Dorsalgia, unspecified; Z16.12 Extended spectrum beta lactamase (ESBL) resistance; E66.01 Morbid (severe) obesity due to excess calories; G89.29 Other chronic pain; I50.9 Heart failure, unspecified; N18.3 Chronic kidney disease, stage 3 (moderate); Z79.84 Long term (current) use of oral hypoglycemic drugs; Z90.710 Acquired absence of both cervix and uterus; Z88.5 Allergy status to narcotic agent; Z88.0 Allergy status to penicillin; Z88.2 Allergy status to sulfonamides; Z88.8 Allergy status to other drugs, medicaments and biological substances; Z79.899 Other long term (current) drug therapy; Z79.82 Long term (current) use of aspirin; Z85.42 Personal history of malignant neoplasm of other parts of uterus; Z87.891 Personal history of nicotine dependence; Z82.49 Family history of ischemic heart disease and other diseases of the circulatory system
CPT/HCPCS: 36415; 36556; 36600; 70450; 71045; 71250; 74176; 78707; 80053; 80202; 80305; 81001; 82140; 82272; 82570; 82803; 82948; 83036; 83540; 83550; 83605; 83735; 83880; 84100; 84145; 84156; 84300; 84439; 84443; 84484; 85018; 85025; 85610; 85730; 86885; 86900; 86901; 86920; 87040; 87070; 87077; 87088; 87186; 87207; 93005; 94640; 94660; 94760; 96361; 96365; 96366; 96368; 97110; 97116; 97161; 97530; 99291; A9562; C9113; G0378; J0131; J0692; J0696; J1265; J1644; J1720; J1815; J1940; J1956; J2543; J3370; P9016

== ENCOUNTER 2018-02-23 11:19 | Inpatient (IN) | payer MEDICARE, OTHER | END 2018-03-07 17:00 | disposition home or self-care (01) | LOC: ORTHO 4S 02-25 01:25 → ER 11:19 → ORTHO 4S 02-25 01:32 → ED HOLD 14:46 → ORTHO 4S 16:03 | DX: N39.0 Urinary tract infection, site not specified (principal); Z68.42 Body mass index [BMI] 45.0-49.9, adult; E66.01 Morbid (severe) obesity due to excess calories; E11.42 Type 2 diabetes mellitus with diabetic polyneuropathy; E87.6 Hypokalemia; E86.0 Dehydration; I27.81 Cor pulmonale (chronic) ==

== ENCOUNTER 2018-10-11 07:41 | Emergency (ER) | payer MEDICARE, OTHER ==
[~2018-10-11] VITALS: Ht 160 cm; Wt 152.0 kg
[~2018-10-11 07:41] MED LIST changes: +ALLO100T25 PO; -ALLO300T11 PO; -AMIT150T PO; -ASCO500C15 PO; -CRAN1TAB3 PO; -CYAN-19 PO; +CYAN100019 PO; -DET2LAC PO; -DIO160T PO; +FLUT1BLS3 INH; -FURO-150 PO; +FURO40TA4 PO; -GABA-581 PO; +INSU100V11 SQ; -LACTC PO; -METO25TA6 PO; -NORepinephrine bitartrate 8 MG in NS 250 ML BAG (32 mcg/ml) IV ONE; -OXYB5TAB11 PO; +OXYB5TAB16 PO; -POTA10TA10 PO; -TRAM50TA2 PO; +VITC500T PO
[2018-10-11] MEDS ORDERED: acetaminophen 325mg tablet PO ONE (08:35)
[2018-10-11] MEDS ORDERED: LIDOcaine 1% w/epiNEPHrine 1:200,000 30ml vial IM ONE (08:35)
[2018-10-11 09:16] VITALS: BP 118/58
[2018-10-11 09:40] LABS: CLARITY,URINE TURBID (Clear); COLOR,URINE YELLOW (Yellow); GLUCOSE, URINE NEGATIVE (Neg); KETONES,URINE TRACE mg/dl (Neg); LEUKOCYTE ESTERASE ,URINE LARGE (Neg); NITRITES, URINE NEGATIVE (Neg); OCCULT BLOOD,URINE MODERATE (Neg); PROTEIN,URINE 100 mg/dl (Neg); UROBILINOGEN,URINE 0.2 E.U/dL (0.2-1.0)
[2018-10-11 09:44] LABS: UA COLLECTION TYPE STRAIGHT CATH
[2018-10-11 09:47] LABS: BACTERIA,URINE 4+ /HPF (Neg); MUCUS STRANDS NONE SEEN /LPF (Neg); SQUAMOUS EPITHELIAL CELL,UR FEW /LPF (FEW); WBC CLUMPS,URINE MANY /HPF (NEGATIVE); WBC,URINE TNTC /HPF (0-4)
[2018-10-11] MEDS ORDERED: TETanus/Pertussis (Acell)/Diphther VAC/PF (Tdap-Adult) 0.5ml syringe IMVAC ONE (09:50)
[2018-10-11] MEDS ORDERED: NYSPWD TP (09:56)
[2018-10-11] MEDS ORDERED: FOSFOMYCIN TROMETHAMINE 3 GM PACKET PO ONE (10:00)
[2018-10-11] MEDS ORDERED: FOSF3PAC PO (10:01)
== END 2018-10-11 10:22 | disposition home or self-care (01) ==
LOC: ER 07:42
DX: S81.812A Laceration without foreign body, left lower leg, initial encounter (principal); N39.0 Urinary tract infection, site not specified; B36.9 Superficial mycosis, unspecified; B35.4 Tinea corporis; I11.0 Hypertensive heart disease with heart failure; I50.9 Heart failure, unspecified; J44.9 Chronic obstructive pulmonary disease, unspecified; E11.9 Type 2 diabetes mellitus without complications; Z90.710 Acquired absence of both cervix and uterus; Z98.890 Other specified postprocedural states; Z56.0 Unemployment, unspecified; Z88.8 Allergy status to other drugs, medicaments and biological substances; Z88.0 Allergy status to penicillin; Z88.5 Allergy status to narcotic agent; Z79.82 Long term (current) use of aspirin; Z79.4 Long term (current) use of insulin; Z79.899 Other long term (current) drug therapy; W06.XXXA Fall from bed, initial encounter; Y93.89 Activity, other specified; Y92.098 Other place in other non-institutional residence as the place of occurrence of the external cause; Y99.8 Other external cause status
CPT/HCPCS: 12004; 81001; 87077; 87088; 87186; 90471; 99284

== ENCOUNTER 2019-02-14 20:50 | Emergency (ER) | payer MEDICARE, OTHER ==
[~2019-02-14] VITALS: Ht 160 cm; Wt 350.0 kg
[~2019-02-14 20:50] MED LIST changes: +FOSF3PAC PO
[2019-02-14] MEDS ORDERED: aspirin 81mg tab.chew PO ONE (22:10)
[2019-02-14 22:55] LABS: BASOPHILS # (AUTO) 0.1 X10'3 (0-0.2); BASOPHILS % (AUTO) 0.5 % (0-1); EOSINOPHILS % (AUTO) 0 % (0-6); HEMATOCRIT 27.8 % (35.0-45.0); HEMOGLOBIN 8.4 g/dl (12.0-16.0); LYMPHOCYTES # (AUTO) 1.9 X10'3 (1.1-4.8); LYMPHOCYTES % (AUTO) 13.7 % (21-51); MEAN CORPUSCULAR HEMOGLOBIN 20.5 PG (27.0-31.0); MEAN CORPUSCULAR HGB CONC 30.1 g/dL (33.0-36.5); MEAN CORPUSCULAR VOLUME 67.9 FL (78-98); MEAN PLATELET VOLUME 8.8 FL (7.4-10.4); MONOCYTES # (AUTO) 0.9 X10'3 (0-0.9); MONOCYTES % (AUTO) 6.7 % (2-12); NEUTROPHILS # (AUTO) 10.7 X10'3 (1.8-7.7); NEUTROPHILS % (AUTO) 79.1 % (42-75); PLATELET COUNT 126 X10'3 (140-440); RED CELL DISTRIBUTION WIDTH 20.1 % (11.5-14.5); WHITE BLOOD COUNT 13.6 X10'3 (4.5-11.0)
[2019-02-14 23:11] LABS: ANION GAP 3 (8-16); BILIRUBIN,TOTAL 0.4 MG/DL (0.1-1.0); BLOOD UREA NITROGEN 22 MG/DL (7-18); BUN/CREATININE RATIO 16.5 (6.6-38.0); CALCIUM 8.3 MG/DL (8.5-10.1); CHLORIDE 99 MMOL/L (99-107); CREATININE 1.33 MG/DL (0.40-0.90); GLUCOSE 377 MG/DL (70-104); POTASSIUM 4.1 MMOL/L (3.5-5.1); SODIUM 135 MMOL/L (135-145); TOTAL CARBON DIOXIDE 32.9 MMOL/L (24-32); eGFR 39 ML/MIN
[2019-02-14 23:12] LABS: ALANINE AMINOTRANSFERASE 21 U/L (12-78); ALBUMIN 2.9 G/DL (3.4-5.0); ALBUMIN/GLOBULIN RATIO 0.7 (1.1-1.5); ALKALINE PHOSPHATASE 104 IU/L (46-116); ASPARTATE AMINO TRANSFERASE 20 U/L (10-37)
[2019-02-14 23:20] LABS: LIPASE 65 U/L (73-393); MAGNESIUM 1.8 MG/DL (1.5-2.4)
[2019-02-14 23:30] LABS: CLARITY,URINE SLIGHTLY CLOUDY (Clear); COLOR,URINE YELLOW (Yellow); GLUCOSE, URINE 500 mg/dl (Neg); KETONES,URINE NEGATIVE (Neg); LEUKOCYTE ESTERASE ,URINE LARGE (Neg); NITRITES, URINE POSITIVE (Neg); OCCULT BLOOD,URINE SMALL (Neg); PROTEIN,URINE TRACE mg/dl (Neg); UROBILINOGEN,URINE 0.2 E.U/dL (0.2-1.0)
[2019-02-14 23:37] LABS: UA COLLECTION TYPE FOLEY CATH
[2019-02-14 23:38] LABS: BACTERIA,URINE 1+ /HPF (Neg); RBC,URINE 0-2 /HPF (0-2); SQUAMOUS EPITHELIAL CELL,UR FEW /LPF (FEW); WBC CLUMPS,URINE FEW /HPF (NEGATIVE); WBC,URINE 50-100 /HPF (0-4); YEAST FEW /HPF (NEGATIVE)
[2019-02-14] MEDS ORDERED: ciprofloxacin 250mg tablet PO STA (23:54)
[2019-02-14] MEDS ORDERED: CefTRIAXone 2gm/D5W 50ml 50 ML IV ONE (23:55)
[2019-02-15 00:09] LABS: ANISOCYTOSIS 3+; HYPOCHROMASIA 1+; MICROCYTOSIS 2+; PLATELET ESTIMATE DECREASED; POLYCHROMASIA FEW; STOMATOCYTES FEW
[2019-02-15] MEDS ORDERED: oxyCODONE/APAP 5-325mg tablet PO ONE (01:15)
[2019-02-15] MEDS ORDERED: ondansetron 4mg rapidly disintigrating tab PO ONE ×2 (01:15)
[2019-02-15] MEDS ORDERED: CIPR-230 PO (01:21)
[2019-02-15] MEDS ORDERED: oxyCODONE/APAP 5-325mg tablet PO STA (01:26)
--- NOTE | 2019-02-15 01:27 | NUR ---
One of the percocets' fell onto the floor. Wasted med with Zohra, re ordered another pill.
[2019-02-15 02:53] VITALS: BP 115/49
--- NOTE | 2019-02-18 15:00 | NUR ---
Urine culture received. RX for Macrobid 100 mg PO BID X 7 days for UTI. Patient should stop Cipro. Daughter called back with questions about an STILL OPERATOR BATCH OR CONTINUOUS who called and ordered zithromax for a pneumonia. Reviewed chart and spoke with Olivia Jung about note as there is not dosage or insturctions. He changed order to doxycycline 100 mg PO BID X 10 days. this was called in to [facility] per patients request.
== END 2019-02-15 03:21 | disposition home or self-care (01) ==
LOC: ER 20:50
DX: R07.89 Other chest pain (principal); N39.0 Urinary tract infection, site not specified; R10.84 Generalized abdominal pain; J44.9 Chronic obstructive pulmonary disease, unspecified; M79.7 Fibromyalgia; I11.0 Hypertensive heart disease with heart failure; I50.9 Heart failure, unspecified; E11.42 Type 2 diabetes mellitus with diabetic polyneuropathy; Z56.0 Unemployment, unspecified; Z98.890 Other specified postprocedural states; Z90.710 Acquired absence of both cervix and uterus; Z88.0 Allergy status to penicillin; Z88.5 Allergy status to narcotic agent; Z88.1 Allergy status to other antibiotic agents; Z88.6 Allergy status to analgesic agent; Z79.899 Other long term (current) drug therapy; Z79.4 Long term (current) use of insulin
CPT/HCPCS: 36415; 71045; 80053; 81001; 83690; 83735; 83880; 84484; 85025; 87077; 87088; 87186; 93005; 96365; 99284; J0696

== ENCOUNTER 2019-11-09 09:51 | Emergency (ER) | payer MEDICARE, OTHER ==
[~2019-11-09] VITALS: Ht 160 cm; Wt 136.4 kg
[2019-11-09 10:38] LABS: BASOPHILS % (AUTO) 0.1 % (0-1); EOSINOPHILS % (AUTO) 0 % (0-6); HEMATOCRIT 29.2 % (35.0-45.0); HEMOGLOBIN 8.8 g/dl (12.0-16.0); LYMPHOCYTES # (AUTO) 1.6 X10'3 (1.1-4.8); LYMPHOCYTES % (AUTO) 25.9 % (21-51); MEAN CORPUSCULAR HEMOGLOBIN 20.6 PG (27.0-31.0); MEAN CORPUSCULAR HGB CONC 30.2 g/dL (33.0-36.5); MEAN CORPUSCULAR VOLUME 68.3 FL (78-98); MEAN PLATELET VOLUME 8.2 FL (7.4-10.4); MONOCYTES # (AUTO) 0.6 X10'3 (0-0.9); MONOCYTES % (AUTO) 9.7 % (2-12); NEUTROPHILS # (AUTO) 4.1 X10'3 (1.8-7.7); NEUTROPHILS % (AUTO) 64.3 % (42-75); PLATELET COUNT 144 X10'3 (140-440); RED BLOOD COUNT 4.27 X10'6 (4.20-5.60); RED CELL DISTRIBUTION WIDTH 21.2 % (11.5-14.5); WHITE BLOOD COUNT 6.3 X10'3 (4.5-11.0)
[2019-11-09 10:45] LABS: PARTIAL THROMBOPLASTIN TIME 29 SECONDS (22-32)
[2019-11-09 10:47] LABS: ALANINE AMINOTRANSFERASE 21 U/L (12-78); ALBUMIN 3.3 G/DL (3.4-5.0); ALBUMIN/GLOBULIN RATIO 0.8 (1.1-1.5); ALKALINE PHOSPHATASE 91 IU/L (46-116); ANION GAP 6 (8-16); ASPARTATE AMINO TRANSFERASE 25 U/L (10-37); BILIRUBIN,TOTAL 0.4 MG/DL (0.1-1.0); BLOOD UREA NITROGEN 21 MG/DL (7-18); BUN/CREATININE RATIO 12.6 (6.6-38.0); CALCIUM 9.7 MG/DL (8.5-10.1); CHLORIDE 100 MMOL/L (99-107); CREATININE 1.67 MG/DL (0.40-0.90); GLUCOSE 321 MG/DL (70-104); POTASSIUM 3.8 MMOL/L (3.5-5.1); SODIUM 136 MMOL/L (135-145); TOTAL CARBON DIOXIDE 30.3 MMOL/L (24-32); TOTAL PROTEIN 7.7 G/DL (6.4-8.2); eGFR 30 ML/MIN
[2019-11-09 10:50] LABS: CLARITY,URINE CLOUDY (Clear); COLOR,URINE YELLOW (Yellow); GLUCOSE, URINE NEGATIVE (Neg); KETONES,URINE TRACE mg/dl (Neg); LEUKOCYTE ESTERASE ,URINE MODERATE (Neg); NITRITES, URINE NEGATIVE (Neg); OCCULT BLOOD,URINE LARGE (Neg); PROTEIN,URINE 100 mg/dl (Neg); UROBILINOGEN,URINE 0.2 E.U/dL (0.2-1.0)
[2019-11-09 10:55] LABS: PLATELET ESTIMATE DECREASED
[2019-11-09 10:56] LABS: ANISOCYTOSIS 3+; HYPOCHROMASIA 1+; MICROCYTOSIS 2+; POLYCHROMASIA 1+
[2019-11-09 11:00] LABS: UA COLLECTION TYPE STRAIGHT CATH
[2019-11-09 11:01] LABS: BACTERIA,URINE 4+ /HPF (Neg); MUCUS STRANDS FEW /LPF (Neg); RBC,URINE 20-50 /HPF (0-2); SQUAMOUS EPITHELIAL CELL,UR FEW /LPF (FEW); WBC,URINE TNTC /HPF (0-4)
--- NOTE | 2019-11-09 11:03 | NUR ---
Mouna, patient's daughter, [phone].
--- NOTE | 2019-11-09 11:03 | NUR ---
Remi Chavez, patient's son, [phone]
--- NOTE | 2019-11-09 11:41 | NUR ---
Breaking Primary RN, pt is awake, alert, supine in bed, no needs at this time
[2019-11-09] MEDS ORDERED: normal saline 1000ML IV soln IVB ONE ×2 (11:45→12:15)
[2019-11-09] MEDS ORDERED: CefTRIAXone 2gm/D5W 50ml 50 ML IV ONE (11:45)
[2019-11-09] MEDS ORDERED: ondansetron 4mg rapidly disintigrating tab PO ONE (13:40)
[2019-11-09] MEDS ORDERED: HYDROcodone/acetaminophen 5mg/325mg tablet PO ONE (13:40)
[2019-11-09] MEDS ORDERED: CIPR-230 PO (14:28)
[2019-11-09] MEDS ORDERED: ciprofloxacin 250mg tablet PO ONE (14:30)
[2019-11-09 15:02] VITALS: BP 161/93
--- NOTE | 2019-11-15 08:38 | NUR ---
CALLED LEFT MESSAGE FOR PT. TO CALL US BACK
== END 2019-11-09 15:03 | disposition home or self-care (01) ==
LOC: ER 09:51
DX: S33.5XXA Sprain of ligaments of lumbar spine, initial encounter (principal); N39.0 Urinary tract infection, site not specified; E11.42 Type 2 diabetes mellitus with diabetic polyneuropathy; I50.9 Heart failure, unspecified; I11.0 Hypertensive heart disease with heart failure; J44.9 Chronic obstructive pulmonary disease, unspecified; Z98.890 Other specified postprocedural states; Z90.710 Acquired absence of both cervix and uterus; Z88.0 Allergy status to penicillin; Z88.5 Allergy status to narcotic agent; Z88.8 Allergy status to other drugs, medicaments and biological substances; Z79.82 Long term (current) use of aspirin; Z79.899 Other long term (current) drug therapy; W19.XXXA Unspecified fall, initial encounter; Y93.89 Activity, other specified; Y92.89 Other specified places as the place of occurrence of the external cause; Y99.8 Other external cause status
CPT/HCPCS: 36415; 71045; 72128; 72131; 80053; 81001; 83880; 84484; 85025; 85610; 85730; 87077; 87088; 87186; 93005; 96365; 99285; J0696; J7030; 85008; 96361

== ENCOUNTER 2020-05-07 16:23 | Emergency (ER) | payer MEDICARE, OTHER ==
[~2020-05-07] VITALS: Ht 160 cm; Wt 131.8 kg
[~2020-05-07 16:23] MED LIST changes: -ALLO100T25 PO; +ALLO300T8 PO; -ATR0.5NEB NEB; +CETI10CA PO; -CHOL2000 PO; -CYAN100019 PO; +DULO60CA65 PO; -FAMO-128 PO; +FAMO20TA8 PO; -FERR325T28 PO; -FLUT1BLS3 INH; -FOSF3PAC PO; +FURO20TA4 PO; -FURO40TA4 PO; -INSU100V11 SQ; -IPRA3AMP31 IH; -LANTUS SQ; -LYR75C PO; +METF-950 PO; -NYSPWD TP; -OXYB5TAB16 PO; +POTA10TA36 PO; +PREG150C46 PO; -PROC-8 PO; +SERT-434 PO; -SERT100T PO; -TIZA4CAP PO; +TIZA4TAB5 PO; +TOLT4CAP PO; +TRAM50TA2 PO; -VITC500T PO; -[UNRECOGNIZED DRUG - CODE] PO
--- NOTE | 2020-05-07 17:22 | NUR ---
Spoke to son now at bedside. States that he is concerned pt may have a UTI as her urine ahs been strong and fould smelling lately. He adds that she suffers frequent UTI's.
--- NOTE | 2020-05-07 18:01 | NUR ---
SHU STEPHENSON [phone] OR LUCAS [phone]
[2020-05-07] MEDS ORDERED: TETanus/Pertussis (Acell)/Diphther VAC/PF (Tdap-Adult) 0.5ml syringe IMVAC ONE (18:20)
[2020-05-07] MEDS ORDERED: bacitracin 15gm ointment TP ONE (18:20)
[2020-05-07] MEDS ORDERED: LIDOcaine 1% W/epiNEPHrine 1:200,000 10ml vial IJ ONE (18:20)
--- NOTE | 2020-05-07 19:23 | NUR ---
THE WOUND TO HER LEFT FOREHEAD IS OLD. PA STATES HE WILL NOT BE DOING SUTURES. ADM. TDAP.
[2020-05-07] MEDS ORDERED: CEPH250T PO (19:28)
--- NOTE | 2020-05-07 19:52 | NUR ---
dia: [phone]
[2020-05-07 19:59] VITALS: BP 152/71
--- NOTE | 2020-05-07 20:48 | NUR ---
Remi is on his way to get his mother, pt updated on POC.
== END 2020-05-07 21:11 | disposition home or self-care (01) ==
LOC: ER 16:23
DX: S01.81XA Laceration without foreign body of other part of head, initial encounter (principal); S90.551A Superficial foreign body, right ankle, initial encounter; E11.42 Type 2 diabetes mellitus with diabetic polyneuropathy; I11.0 Hypertensive heart disease with heart failure; I50.9 Heart failure, unspecified; M79.7 Fibromyalgia; J44.9 Chronic obstructive pulmonary disease, unspecified; Z90.710 Acquired absence of both cervix and uterus; Z98.890 Other specified postprocedural states; Z56.0 Unemployment, unspecified; Z88.8 Allergy status to other drugs, medicaments and biological substances; Z88.0 Allergy status to penicillin; Z88.5 Allergy status to narcotic agent; Z79.82 Long term (current) use of aspirin; Z79.84 Long term (current) use of oral hypoglycemic drugs; Z79.899 Other long term (current) drug therapy; W06.XXXA Fall from bed, initial encounter; W46.0XXA Contact with hypodermic needle, initial encounter; Y93.89 Activity, other specified; Y92.89 Other specified places as the place of occurrence of the external cause; Y99.8 Other external cause status
CPT/HCPCS: 70450; 73610; 90471; 90715; 99284

== ENCOUNTER 2020-10-24 17:50 | Inpatient (IN) | payer MEDICARE, OTHER ==
[~2020-10-24] VITALS: Ht 165.1 cm; Wt 150.4 kg
[2020-10-24 19:47] LABS: BASOPHILS % (AUTO) 0.4 % (0-1); EOSINOPHILS % (AUTO) 0 % (0-6); LYMPHOCYTES % (AUTO) 14.4 % (21-51); MEAN CORPUSCULAR HEMOGLOBIN 27.7 PG (27.0-31.0); MEAN CORPUSCULAR HGB CONC 31.7 g/dL (33.0-36.5); MEAN CORPUSCULAR VOLUME 87.6 FL (78-98); MEAN PLATELET VOLUME 8.1 FL (7.4-10.4); MONOCYTES % (AUTO) 14.1 % (2-12); NEUTROPHILS # (AUTO) 5.1 X10'3 (1.8-7.7); NEUTROPHILS % (AUTO) 71.1 % (42-75); PLATELET COUNT 103 X10'3 (140-440); RED BLOOD COUNT 4.68 X10'6 (4.20-5.60); RED CELL DISTRIBUTION WIDTH 19.3 % (11.5-14.5); WHITE BLOOD COUNT 7.2 X10'3 (4.5-11.0)
[2020-10-24 19:59] LABS: ALANINE AMINOTRANSFERASE 19 U/L (12-78); ALBUMIN 3.1 G/DL (3.4-5.0); ALBUMIN/GLOBULIN RATIO 0.7 (1.1-1.5); ALKALINE PHOSPHATASE 104 IU/L (46-116); ANION GAP 9 (8-16); ASPARTATE AMINO TRANSFERASE 22 U/L (10-37); BLOOD UREA NITROGEN 18 MG/DL (7-18); BUN/CREATININE RATIO 13.1 (6.6-38.0); CALCIUM 8.9 MG/DL (8.5-10.1); CHLORIDE 101 MMOL/L (99-107); CREATININE 1.37 MG/DL (0.40-0.90); GLUCOSE 276 MG/DL (70-104); POTASSIUM 4.4 MMOL/L (3.5-5.1); SODIUM 141 MMOL/L (135-145); TOTAL CARBON DIOXIDE 31.4 MMOL/L (24-32); TOTAL PROTEIN 7.6 G/DL (6.4-8.2); eGFR 38 ML/MIN
[2020-10-24] MEDS ORDERED: NYSTATIN CREAM - 30GM TUBE TP ONE (20:00)
[2020-10-24 20:02] LABS: LIPASE < 50 U/L (73-393); TROPONIN I < 0.04 NG/ML (0.0-0.05)
[2020-10-24] MEDS ORDERED: meropenem inj 2 GM in normal saline 100ml IV soln 100 ML IV ONE (20:05)
--- NOTE | 2020-10-24 20:15 | NUR ---
Pt has many deep folds with that are damp, red and inflammed. Powder has been applied, but is wet and caked in the creases. Area is extremely tender and patient does not tolerat cleaning the area.
[2020-10-24 20:16] LABS: MAGNESIUM 1.8 MG/DL (1.5-2.4); PLATELET ESTIMATE DECREASED
[2020-10-24 20:17] LABS: ANISOCYTOSIS 2+; TARGET CELLS FEW
[2020-10-24 20:24] LABS: CLARITY,URINE CLOUDY (Clear); COLOR,URINE AMBER (Yellow); GLUCOSE, URINE NEGATIVE (Neg); KETONES,URINE NEGATIVE (Neg); LEUKOCYTE ESTERASE ,URINE SMALL (Neg); NITRITES, URINE POSITIVE (Neg); OCCULT BLOOD,URINE LARGE (Neg); PH,URINE 8.5 (4.8-8.0); PROTEIN,URINE 100 mg/dl (Neg)
[2020-10-24 20:49] LABS: UA COLLECTION TYPE STRAIGHT CATH
[2020-10-24 20:52] LABS: RBC,URINE TNTC /HPF (0-2)
[2020-10-24 20:53] LABS: BACTERIA,URINE 2+ /HPF (Neg); MUCUS STRANDS NONE SEEN /LPF (Neg); SQUAMOUS EPITHELIAL CELL,UR FEW /LPF (FEW)
[2020-10-24] MEDS ORDERED: temazepam 15mg capsule PO PRN (21:00)
[2020-10-24] MEDS ORDERED: dextrose 50%-water 50ml dispensing syringe IV PRN ×2 (21:50)
[2020-10-24] MEDS ORDERED: MESSAGE TO PHARMACY PO ONE (21:50)
[2020-10-24] MEDS ORDERED: dextrose ORAL solution 15 GM/59 ML bottle PO PRN ×2 (21:50)
[2020-10-24] MEDS ORDERED: glucagon, human recombinant 1mg kit SUBCUT PRN (21:50)
[2020-10-24] MEDS ORDERED: haloperidol lactate 5mg/ml inj IM ONE (22:20)
[2020-10-24] MEDS ORDERED: HYDROcodone/acetaminophen 5mg/325mg tablet PO PRN (22:45)
[2020-10-24] MEDS ORDERED: acetaminophen 650mg rectal suppository RC PRN (22:45)
[2020-10-24] MEDS ORDERED: mag hydrox/Alum hydrox/simeth 30ml oral suspension PO PRN (22:45)
[2020-10-24] MEDS ORDERED: acetaminophen 325mg tablet PO PRN ×2 (22:45)
[2020-10-24] MEDS ORDERED: ondansetron/PF 4mg/2ml inj IV PRN (22:45)
[2020-10-24] MEDS ORDERED: diphenhydrAMINE 50 mg/ml inj IV PRN (22:45)
[2020-10-24] MEDS ORDERED: bisacodyl 10mg suppository rectal RC PRN (22:45)
[2020-10-24] MEDS ORDERED: ondansetron 4mg rapidly disintigrating tab PO PRN (22:45)
[2020-10-24] MEDS: normal saline 1000ml 1,000 ML IV SCH (22:45)
[2020-10-24] MEDS ORDERED: magnesium hydroxide 30ml (MOM) UD suspension PO PRN (22:45)
[2020-10-24] MEDS ORDERED: diphenhydrAMINE 25mg capsule PO PRN (22:45)
[2020-10-24] MEDS ORDERED: VENL150C58 PO (23:04)
[2020-10-24 23:10] LABS: PARTIAL THROMBOPLASTIN TIME 30 SECONDS (22-32)
[2020-10-24 23:20] LABS: C-REACTIVE PROTEIN 13.89 MG/DL (0.0-0.5); CREATINE KINASE 95 U/L (26-192); PHOSPHORUS 3.1 MG/DL (2.3-4.5)
[2020-10-25] MEDS ORDERED: normal saline 1000ML IV soln IVB ONE (00:05)
[2020-10-25] MEDS ORDERED: iohexol 350MG/ML 100ml bottle IV ONE (00:13)
[2020-10-25] MEDS ORDERED: tizanidine 4mg tablet PO PRN (00:20)
[2020-10-25] MEDS ORDERED: insulin Lispro (HumaLOG) vial - multi-dose SQ SCH (00:25)
[2020-10-25] MEDS ORDERED: MESSAGE TO PHARMACY PO ONE (00:25)
[2020-10-25] MEDS ORDERED: dextrose ORAL solution 15 GM/59 ML bottle PO PRN ×2 (00:25)
[2020-10-25] MEDS ORDERED: dextrose 50%-water 50ml dispensing syringe IV PRN ×2 (00:25)
[2020-10-25] MEDS ORDERED: glucagon, human recombinant 1mg kit SUBCUT PRN (00:25)
[2020-10-25] MEDS ORDERED: acetaminophen 1,000mg/100ml IV 100 ML IV ONE (02:05)
--- NOTE | 2020-10-25 04:03 | NUR ---
PT SLEEPING - A CRITICAL PATIENT ARRIVED IN THE DEPARTMENT AND MS. NGUYEN HAD TO BE MOVED TO THE HALLWAY. NEW VITALS WERE OBTAINED AND PT WAS RECONNECTED TO 02 WELL FULL MONITORING EQUIPMENT. PT STILL RUNNING WARM AT 100.5 AXILLARY - WILL CONSULT WITH PRIMARY RN REGARDING PREVIOUSLY GIVEN TYLENOL AND POTENTIAL NEED FOR ANOTHER ANTIPYRETIC.
[2020-10-25] MEDS: heparin, porcine 5000 units/ml vial SQ SCH ×4 (08:00→22:00)
[2020-10-25 09:39] LABS: HEMATOCRIT 38.9 % (35.0-45.0); HEMOGLOBIN 12.6 g/dl (12.0-16.0); MEAN CORPUSCULAR HGB CONC 32.3 g/dL (33.0-36.5); MEAN CORPUSCULAR VOLUME 86.7 FL (78-98); MEAN PLATELET VOLUME 8.2 FL (7.4-10.4); PLATELET COUNT 93 X10'3 (140-440); RED BLOOD COUNT 4.49 X10'6 (4.20-5.60); RED CELL DISTRIBUTION WIDTH 19.3 % (11.5-14.5); WHITE BLOOD COUNT 5.8 X10'3 (4.5-11.0)
[2020-10-25 09:41] LABS: ALANINE AMINOTRANSFERASE 15 U/L (12-78); ALBUMIN 2.7 G/DL (3.4-5.0); ALBUMIN/GLOBULIN RATIO 0.6 (1.1-1.5); ALKALINE PHOSPHATASE 94 IU/L (46-116); ANION GAP 10 (8-16); ASPARTATE AMINO TRANSFERASE 28 U/L (10-37); BILIRUBIN,TOTAL 0.9 MG/DL (0.1-1.0); BLOOD UREA NITROGEN 19 MG/DL (7-18); BUN/CREATININE RATIO 12.9 (6.6-38.0); CALCIUM 8.4 MG/DL (8.5-10.1); CHLORIDE 104 MMOL/L (99-107); CHOLESTEROL 91 MG/DL (0-200); CREATININE 1.47 MG/DL (0.40-0.90); GLUCOSE 264 MG/DL (70-104); HDL CHOLESTEROL 13 MG/DL (35-60); LDL CHOLESTEROL 50 MG/DL (50-100); POTASSIUM 3.8 MMOL/L (3.5-5.1); SODIUM 142 MMOL/L (135-145); TOTAL CARBON DIOXIDE 27.9 MMOL/L (24-32); TOTAL PROTEIN 7.1 G/DL (6.4-8.2); TRIGLYCERIDES 172 MG/DL (20-135); eGFR 35 ML/MIN
--- NOTE | 2020-10-25 09:42 | NUR ---
PAGER ID: [phone] MESSAGE: MAGDI ON [phone], PATIENT JUST ARRIVED FROM ER ANGELINE NGUYEN, THE FIXER SUPERVISOR INFORMED US THAT SHE HAS BLOODY URINE WITH CLOTS AND WAS NOT SURE YOU ARE AWARE, THX.
[2020-10-25] MEDS: meropenem inj 1 GM in normal saline 100ml IV soln 100 ML IV SCH ×2 (09:51→20:00)
[2020-10-25 09:52] VITALS: BP 140/67
--- NOTE | 2020-10-25 10:04 | NUR ---
Patient in room PCU 3026. I have received report from Lizy Rios and had the opportunity to ask questions and assume patient care.
--- NOTE | 2020-10-25 10:04 | NUR ---
MD Ortiz, verbal order to irrigate patient's broderick catheter.
--- NOTE | 2020-10-25 10:12 | NUR ---
PAGER ID: [phone] MESSAGE: Jean SAEED ext [phone]. pt Luis Mc [id number]. Pt new admit with hematuria. Platelets back at 93. Still okay to administer heparin subQ? Please advise.
[2020-10-25] MEDS: sertraline 50mg tablet PO SCH (10:30)
[2020-10-25] MEDS: oxybutynin 5mg tablet PO SCH ×3 (10:31→21:00)
[2020-10-25] MEDS: atorvastatin 20mg tablet PO SCH (10:31)
[2020-10-25] MEDS: allopurinol 300 MG tablet PO SCH (10:31)
[2020-10-25] MEDS: docusate sod 100mg capsule PO SCH ×2 (10:31→20:00)
[2020-10-25] MEDS: pregabalin 75mg capsule PO SCH ×2 (10:31→20:00)
[2020-10-25] MEDS: famotidine 20mg tablet PO SCH ×2 (10:31→20:00)
[2020-10-25] MEDS: aspirin 81mg, enteric-coated 1 TAB TABLET.DR PO SCH (10:32)
[2020-10-25] MEDS: duloxetine 30mg CAPSULE.DR PO SCH (10:32)
[2020-10-25] MEDS: normal saline 1000ml 1,000 ML IV SCH (10:33)
[2020-10-25 10:50] LABS: ANISOCYTOSIS 2+; PLATELET ESTIMATE DECREASED; POLYCHROMASIA FEW; TARGET CELLS FEW; TOTAL CELLS COUNTED 100
[2020-10-25 11:00] VITALS: BP 158/79
--- NOTE | 2020-10-25 11:03 | NUR ---
MD Ortiz PAGER ID: [phone] MESSAGE: Jean PCU ext [phone]. Pt [id number] Luis Mc. The MRI that was ordered is not able to be done as the weight limit for them is 285lbs. Pt is currently 330lbs.
[2020-10-25] MEDS: nystatin 15 GM powder TP SCH ×2 (13:46→21:00)
[2020-10-25] MEDS: insulin Lispro (HumaLOG) vial - multi-dose SQ SCH ×2 (14:01→19:55)
[2020-10-25 15:00] VITALS: BP 130/63
--- NOTE | 2020-10-25 18:29 | NUR ---
Problems reprioritized. Patient report given, questions answered & plan of care reviewed with Virginia Rios.
[2020-10-25 19:00] VITALS: BP 177/89
[2020-10-25] MEDS: insulin glargine (Lantus) pen - multi-dose SQ SCH (21:00)
[2020-10-25] MEDS ORDERED: insulin glargine (Lantus) pen - multi-dose SQ SCH (21:00)
[2020-10-25] MEDS: HYDROmorphone inj. 0.5 MG/0.5 ML DISP.SYRIN IV PRN (21:05)
[2020-10-25] MEDS ORDERED: furosemide 40mg/4ml inj IV ONE (21:15)
[2020-10-25] MEDS ORDERED: furosemide 40mg/4ml inj ONE (21:19)
--- NOTE | 2020-10-25 21:30 | NUR ---
Arrived to bedside to find patient on Non rebreather Mask for Pulmonary Edema and shortness of breath, Dr. Zhong also arrived and assessed patient and gave orders, patient is now placed on BIPAP by Resp Therapist, call will be made to Daughter and Son.
[2020-10-25 21:36] LABS: ABG BASE EXCESS -1.9 mmol/L (-2.0-2.0); ABG HCO3 26.5 mmol/L (22.0-26.0); ABG OXYGEN SATURATION 97.8 % (94-97); ABG PCO2 (T) 60.1 mmHg (32.0-45.0); ALLEN'S TEST POSITIVE; FCOHb 0.9 % (0.0-3.9); FMetHb 0.4 % (0.0-1.5); FO2Hb 96.5 % (94-97); RESPIRATORY RATE 20 b/min; TOTAL HEMOGLOBIN 15.1 G/dl (12.0-16.0)
[2020-10-25 21:38] LABS: BASOPHILS % (AUTO) 0.1 % (0-1); EOSINOPHILS % (AUTO) 0 % (0-6); HEMATOCRIT 47.3 % (35.0-45.0); LYMPHOCYTES # (AUTO) 6.2 X10'3 (1.1-4.8); LYMPHOCYTES % (AUTO) 34.6 % (21-51); MEAN CORPUSCULAR HEMOGLOBIN 28.1 PG (27.0-31.0); MEAN CORPUSCULAR HGB CONC 31.7 g/dL (33.0-36.5); MEAN CORPUSCULAR VOLUME 88.8 FL (78-98); MEAN PLATELET VOLUME 8.7 FL (7.4-10.4); MONOCYTES # (AUTO) 2.5 X10'3 (0-0.9); MONOCYTES % (AUTO) 14.1 % (2-12); NEUTROPHILS # (AUTO) 9.1 X10'3 (1.8-7.7); NEUTROPHILS % (AUTO) 51.2 % (42-75); PLATELET COUNT 185 X10'3 (140-440); RED BLOOD COUNT 5.33 X10'6 (4.20-5.60); RED CELL DISTRIBUTION WIDTH 19.5 % (11.5-14.5); WHITE BLOOD COUNT 17.8 X10'3 (4.5-11.0)
--- NOTE | 2020-10-25 21:39 | NUR ---
Daughter Mouna Smith notified again by phone and message left on Son's phone, Daughter Mouna spoke with RN and with Nursing Sat Tutor regarding code status and Mouna states patient wants to be DNR she and Son are in agreement and permission given to both RN and Nursing Sat Tutor to change Code Status to DNR with Comfort Care. Dr. Zhong notified of Code Status Change to DNR Comfort Care.
[2020-10-25 21:58] LABS: ANION GAP 10 (8-16); BLOOD UREA NITROGEN 19 MG/DL (7-18); BUN/CREATININE RATIO 11.9 (6.6-38.0); CALCIUM 8.6 MG/DL (8.5-10.1); CHLORIDE 103 MMOL/L (99-107); GLUCOSE 308 MG/DL (70-104); POTASSIUM 4.3 MMOL/L (3.5-5.1); SODIUM 141 MMOL/L (135-145); TOTAL CARBON DIOXIDE 27.7 MMOL/L (24-32); TROPONIN I 0.04 NG/ML (0.0-0.05); eGFR 32 ML/MIN
--- NOTE | 2020-10-25 23:30 | NUR ---
rapid response called for elevated blood pressure 170's; increased labored breathing; change in level of consciousness son at bedside--extra lasix 20 mg given with no effect after 40 mg given placed on nrb, then to bipap; pt made comfort care awaiting daughter to come see her mom
--- NOTE | 2020-10-26 01:30 | NUR ---
pt started to awaken some --placed on nrb iv dilaudid given earlier
[2020-10-26] MEDS ORDERED: furosemide 20 MG/2 ML vial IV ONE ×2 (01:40→19:50)
[2020-10-26] MEDS: HYDROmorphone inj. 0.5 MG/0.5 ML DISP.SYRIN IV PRN (01:52)
[2020-10-26 06:28] LABS: BASOPHILS % (AUTO) 0.1 % (0-1); EOSINOPHILS % (AUTO) 0 % (0-6); HEMOGLOBIN 12.7 g/dl (12.0-16.0); LYMPHOCYTES % (AUTO) 15.7 % (21-51); MEAN CORPUSCULAR HGB CONC 31.9 g/dL (33.0-36.5); MEAN CORPUSCULAR VOLUME 87.8 FL (78-98); MEAN PLATELET VOLUME 8.5 FL (7.4-10.4); MONOCYTES # (AUTO) 1.9 X10'3 (0-0.9); MONOCYTES % (AUTO) 14.4 % (2-12); NEUTROPHILS % (AUTO) 69.8 % (42-75); PLATELET COUNT 166 X10'3 (140-440); RED BLOOD COUNT 4.55 X10'6 (4.20-5.60); RED CELL DISTRIBUTION WIDTH 19.1 % (11.5-14.5); WHITE BLOOD COUNT 12.9 X10'3 (4.5-11.0)
[2020-10-26 07:00] VITALS: BP 130/67
--- NOTE | 2020-10-26 07:02 | NUR ---
Patient in room PCU 3026. I have received report from Virginia WHITE and had the opportunity to ask questions and assume patient care.
[2020-10-26 07:04] LABS: ALANINE AMINOTRANSFERASE 30 U/L (12-78); ALBUMIN 2.8 G/DL (3.4-5.0); ALBUMIN/GLOBULIN RATIO 0.6 (1.1-1.5); ALKALINE PHOSPHATASE 101 IU/L (46-116); ANION GAP 12 (8-16); ASPARTATE AMINO TRANSFERASE 69 U/L (10-37); BILIRUBIN,TOTAL 0.8 MG/DL (0.1-1.0); BLOOD UREA NITROGEN 24 MG/DL (7-18); BUN/CREATININE RATIO 12.4 (6.6-38.0); CALCIUM 8.5 MG/DL (8.5-10.1); CHLORIDE 104 MMOL/L (99-107); CREATININE 1.94 MG/DL (0.40-0.90); GLUCOSE 351 MG/DL (70-104); POTASSIUM 4.3 MMOL/L (3.5-5.1); SODIUM 141 MMOL/L (135-145); TOTAL CARBON DIOXIDE 25.4 MMOL/L (24-32); TOTAL PROTEIN 7.2 G/DL (6.4-8.2); eGFR 25 ML/MIN
--- NOTE | 2020-10-26 07:43 | NUR ---
Page Sent promotional table spacer PAGER ID: [phone] MESSAGE: [id number] García . Patient has positive blood culture this am. Blood is positive for gram positive cocci in clusters. Aubree [phone]
[2020-10-26] MEDS: oxybutynin 5mg tablet PO SCH ×2 (08:15→14:15)
[2020-10-26] MEDS: duloxetine 30mg CAPSULE.DR PO SCH (08:15)
[2020-10-26] MEDS: meropenem inj 1 GM in normal saline 100ml IV soln 100 ML IV SCH (08:15)
[2020-10-26] MEDS: docusate sod 100mg capsule PO SCH (08:15)
[2020-10-26] MEDS: aspirin 81mg, enteric-coated 1 TAB TABLET.DR PO SCH (08:15)
[2020-10-26] MEDS: pregabalin 75mg capsule PO SCH (08:16)
[2020-10-26] MEDS: allopurinol 300 MG tablet PO SCH (08:16)
[2020-10-26] MEDS: atorvastatin 20mg tablet PO SCH (08:16)
[2020-10-26] MEDS: sertraline 50mg tablet PO SCH (08:16)
[2020-10-26] MEDS: famotidine 20mg tablet PO SCH (08:16)
[2020-10-26] MEDS: heparin, porcine 5000 units/ml vial SQ SCH (08:17)
[2020-10-26] MEDS: nystatin 15 GM powder TP SCH ×2 (08:18→14:20)
[2020-10-26] MEDS: insulin Lispro (HumaLOG) vial - multi-dose SQ SCH ×3 (08:31→22:27)
[2020-10-26] MEDS ORDERED: furosemide 40mg/4ml inj IV SCH (09:10)
[2020-10-26 11:00] VITALS: BP 136/78
[2020-10-26] MEDS ORDERED: CefTRIAXone 2gm/D5W 50ml BAG 50 ML IV SCH (13:45)
--- NOTE | 2020-10-26 14:32 | NUR ---
Initial: Pt admit for sepsis secondary to UTI, acute CVA, and hematuria. Noted pt with T2DM, current A1c is fairly well controlled for age at 8.7%. Per EMR pt A/O x 2 and confused. Written DM education with RD contact information placed in patient's chart. Pt on a CHO controlled diet documented with 0% PO intake x 3 meals not meeting estimated nutrient needs. ONS may not be appropriate at this time given patient's poor acceptance to PO intake. No documented BM since admit, pt documented to be receiving routine bowel care. Will continue to follow closely and make recommendations as appropriate. Recommendations: 1) Continue CHO controlled diet; advance to regular diet if poor PO intake persists 2) Monitor need for ONS 3) Encourage PO intake and monitor need to assist with meals given current mentation 4) Routine bowel care 5) Weekly scaled weights Addendum: 10/26/20 at [address] Amended: Links added.
[2020-10-26 15:00] VITALS: BP 119/78
--- NOTE | 2020-10-26 18:39 | NUR ---
Problems reprioritized. Patient report given, questions answered & plan of care reviewed with Candida WHITE.
[2020-10-26] MEDS ORDERED: atenolol 25mg tablet PO ONE (19:45)
[2020-10-26] MEDS ORDERED: lactobacillus rhamnosus 10,000 MMU CELLS/CAPSULE PO SCH (20:00)
[2020-10-26] MEDS: insulin glargine (Lantus) pen - multi-dose SQ SCH (21:00)
[2020-10-26] MEDS ORDERED: diltiazem-NS 100mg/100ml 100 ML IV SCH (22:00)
[2020-10-26 23:50] VITALS: BP 117/86
--- NOTE | 2020-10-27 02:54 | NUR ---
pt rm 1677F bi-pap no longer effective, RT says they can longer do anything. need comfort care order for family to come up. Dr Mayo notified
--- NOTE | 2020-10-27 03:06 | NUR ---
Informed by RT that pt is not going to make it thorough the night , the pt is not responding to the bipap any longer, family notified and upset, family wants mom on comfort care, talked to Maria Esther about letting family up, DR Mayo said no and dayshift can change to comfort care. framily not vaccinated cannot come in.
--- NOTE | 2020-10-27 04:16 | NUR ---
pt rm 3023U , in V-Fib, HR 250 , currently asystole, alex. [id number] Mayo.Orderedf to take off gavi and to call time
--- NOTE | 2020-10-27 04:19 | NUR ---
RN IS TO DOCUMENT YES TO ALL APPLICABLE AREAS Pronouncement of : 1. Time Physician Notified:417 2. Date of :10/27/20 3. Time of : 417 4. DNR/Withdraw life support documented:DNR 5. Monitor strip has been placed on chart:YES 6. Assessment process is of one-minute duration and includes following criteria: a) Patient is unresponsive to all stimuli: YES b) Pupils fixed and non-reactive:YES c) Auscultation of precordium reveals absence of heart tones:Yes d) Auscultation of lungs reveals absence of breath sounds:Yes e) Absence of blood pressure / all vital signs:Yes f) QRS complexes are not present on monitor / EKG strip:YES g) Pacer spikes without capture:YES 4. Comments:Pt pronounce at 417, Dr Mayo Notified who at that time decided to call time, and to follow protocol.
[2020-10-27] MEDS ORDERED: azithromycin/NS 500mg/250ml 250 ML IV SCH (08:00)
--- NOTE | 2020-10-27 10:00 | NUR ---
Katya picked up patient. Belongings left with family before AM shift.
== END 2020-10-27 09:50 | DRG 871 ==
LOC: ER 17:50 → ED HOLD 22:41 → UNDOADMIN 22:41 → PCU 3S 10-25 09:35
PROVIDERS: ADMIT Family Medicine; ATTEND Family Medicine
PROC: B3251ZZ Computerized Tomography (CT Scan) of Bilateral Common Carotid Arteries using Low Osmolar Contrast (ICD-10-PCS; 2020-10-25)
PROC: B32G1ZZ Computerized Tomography (CT Scan) of Bilateral Vertebral Arteries using Low Osmolar Contrast (ICD-10-PCS; 2020-10-25)
PROC: B32R1ZZ Computerized Tomography (CT Scan) of Intracranial Arteries using Low Osmolar Contrast (ICD-10-PCS; 2020-10-25)
PROC: B3281ZZ Computerized Tomography (CT Scan) of Bilateral Internal Carotid Arteries using Low Osmolar Contrast (ICD-10-PCS; 2020-10-25)
PROC: 5A09357 Assistance with Respiratory Ventilation, Less than 24 Consecutive Hours, Continuous Positive Airway Pressure (ICD-10-PCS; principal; 2020-10-26)
PROC: 5A09357 Assistance with Respiratory Ventilation, Less than 24 Consecutive Hours, Continuous Positive Airway Pressure (ICD-10-PCS; 2020-10-27)
DX: A41.9 Sepsis, unspecified organism (principal); G93.41 Metabolic encephalopathy; I63.9 Cerebral infarction, unspecified; N17.0 Acute kidney failure with tubular necrosis; N39.0 Urinary tract infection, site not specified; L03.116 Cellulitis of left lower limb; I13.0 Hypertensive heart and chronic kidney disease with heart failure and stage 1 through stage 4 chronic kidney disease, or unspecified chronic kidney disease; I50.32 Chronic diastolic (congestive) heart failure; Z68.43 Body mass index [BMI] 50.0-59.9, adult; Z16.24 Resistance to multiple antibiotics; B35.4 Tinea corporis; D69.6 Thrombocytopenia, unspecified; E11.22 Type 2 diabetes mellitus with diabetic chronic kidney disease; E11.42 Type 2 diabetes mellitus with diabetic polyneuropathy; E11.65 Type 2 diabetes mellitus with hyperglycemia; Z20.822 Contact with and (suspected) exposure to COVID-19; E66.01 Morbid (severe) obesity due to excess calories; J44.9 Chronic obstructive pulmonary disease, unspecified; R31.9 Hematuria, unspecified; M1A.9XX0 Chronic gout, unspecified, without tophus (tophi); R29.716 NIHSS score 16; G47.30 Sleep apnea, unspecified; B96.4 Proteus (mirabilis) (morganii) as the cause of diseases classified elsewhere; M79.7 Fibromyalgia; N18.9 Chronic kidney disease, unspecified; Z82.49 Family history of ischemic heart disease and other diseases of the circulatory system; Z87.440 Personal history of urinary (tract) infections; Z87.442 Personal history of urinary calculi; Z90.710 Acquired absence of both cervix and uterus; Z88.5 Allergy status to narcotic agent; Z88.0 Allergy status to penicillin; Z88.8 Allergy status to other drugs, medicaments and biological substances; Z91.040 Latex allergy status; Z87.01 Personal history of pneumonia (recurrent); Z56.0 Unemployment, unspecified; Z79.899 Other long term (current) drug therapy; Z79.82 Long term (current) use of aspirin
CPT/HCPCS: 36415; 36600; 70450; 70496; 70498; 71045; 74176; 80048; 80053; 80061; 81001; 82550; 82803; 82948; 83036; 83605; 83690; 83735; 83880; 84100; 84145; 84443; 84484; 85007; 85008; 85018; 85025; 85610; 85651; 85730; 86140; 87040; 87077; 87081; 87088; 87186; 87635; 93005; 94660; 94799; 96365; 96366; 96372; 99285; C9803; G0378; J0131; J0696; J1170; J1630; J1644; J1815; J1940; J2185; J3490; J7030; Q9967